=== PATIENT | female | born 1985 | race Caucasian/White ===

== ENCOUNTER 2023-04-29 06:47 | Outpatient (OUT) | payer MEDICAID, SELFPAY ==
[2023-04-29 07:54] LABS: Estimated Average Glucose 169 mg/dL; Glycohemoglobin A1C 7.5 % (4.5-6.2)
[2023-04-29 08:06] LABS: Alanine Aminotransferase 26 U/L (14-59); Albumin Globulin Ratio 0.9; Albumin Level 3.6 g/dL (3.4-5.0); Alkaline Phosphatase 91 U/L (46-116); Anion Gap 13.5; Aspartate Amino Transferase 10 U/L (15-37); BUN Creatinine Ratio 10.1; Bilirubin Total 0.3 mg/dL (0.2-1.0); Carbon Dioxide 26.5 mmol/L (21.0-32.0); Chloride 101 mmol/L (98-107); Chol HDL Ratio 4.4; Cholesterol 155 mg/dL (<=200); Estimated GFR (African America >60 (>=60); Estimated GFR (Non-African Ame >60 (>=60); Free T3 2.67 pg/mL (2.18-3.98); Glucose 196 mg/dL (74-106); HDL Cholesterol 35 mg/dL (40-60); Sodium 137 mmol/L (136-145); Thyroid Stimulating Hormone 3.556 uIU/mL (0.358-3.740); Total Protein 7.6 g/dL (6.4-8.2); Triglycerides 97 mg/dL (<=150); VLDL CHOLESTEROL 19.4 mg/dL
[2023-04-29 08:11] LABS: Basophils Percent Auto 0.3 % (0.2-2.0); Eosinophils Absolute Auto 0.1 10^3/uL (0.0-0.7); Eosinophils Percent Auto 1.9 % (0.9-7.0); Hematocrit 42.6 % (36.0-48.0); Hemoglobin 14.5 g/dL (12.0-16.0); Immature Granulocytes Abs Auto 0.03 10^3/uL (0.00-0.03); Immature Granulocytes Pct Auto 0.4 % (0.0-0.5); Lymphocytes Absolute Auto 2.2 10^3/uL (1.2-3.8); Lymphocytes Percent Auto 31.9 % (20.5-60.0); Mean Corpuscular Hemoglobin 28.7 pg (26.7-34.0); Mean Corpuscular Volume 84.4 fL (81.0-99.0); Mean Platelet Volume 9.7 fL (9.5-13.5); Monocytes Absolute Auto 0.4 10^3/uL (0.3-0.8); Monocytes Percent Auto 5.9 % (1.7-12.0); Neutrophils Absolute Auto 4.1 10^3/uL (1.4-6.5); Neutrophils Percent Auto 59.6 % (43.0-75.0); Platelet Count 244 10^3/uL (150-450); Red Blood Count 5.05 10^6/uL (4.20-5.40); Red Cell Distribution Width 12.8 % (11.0-15.0); White Blood Count 6.9 10^3/uL (4.0-11.0)
[2023-04-30 13:09] LABS: Insulin 24.5 uIU/mL (2.6-24.9)
== END 2023-04-29 06:48 | disposition home or self-care (01) ==
LOC: LAB 06:51
PROVIDERS: PCP Family Medicine; Visit Provider Family Medicine
DX: E11.9 Type 2 diabetes mellitus without complications (principal); D64.9 Anemia, unspecified
CPT/HCPCS: 36415; 80053; 80061; 83036; 83525; 83540; 84436; 84443; 84481; 85025

== ENCOUNTER 2023-06-11 11:25 | Outpatient (OUT) | payer MEDICAID, SELFPAY ==
--- NOTE | 2023-06-11 11:32 | XR_ITS ---
The [address] [address] Patient Name: JOANN JUNE MRN: [id number] date: 1985 Sex: F Assigned Patient Location: [facility] Current Patient Location: Accession/Order Number: [id number] Exam Date: 06/11/2023 11:35 Report Date: 06/12/2023 00:19 At the request of: DURGA MULLER Procedure: XR hip LT 2V w/ pelvis EXAM: XR hip LT 2V w/ pelvis HISTORY: Acute Left Left Hip Pain M25.552 COMPARISON: None. TECHNIQUE: 3 view study FINDINGS: Overall bony architecture is normal. Both hip joint spaces are satisfactorily maintained. There is mild narrowing at the symphysis pubis with early osteophytosis. Sacroiliac joints are satisfactorily maintained. XR/XR hip LT 2V w/ pelvis IMPRESSION: Early osteitis pubis. No acute bone or joint abnormality is otherwise identified. Electronically authenticated by: Deirdre SAMPSON Date: 06/12/2023 00:19
== END 2023-06-11 11:26 | disposition home or self-care (01) ==
LOC: RAD 11:26
PROVIDERS: PCP Family Medicine; Visit Provider Family Medicine
DX: M25.552 Pain in left hip (principal)
CPT/HCPCS: 73502

== ENCOUNTER 2023-06-17 14:48 | Outpatient (RCR) | payer MEDICAID, SELFPAY | END 2023-06-18 16:42 | disposition home or self-care (01) | LOC: PT 14:48 | PROVIDERS: PCP Family Medicine; Visit Provider Family Medicine | DX: M86.9 Osteomyelitis, unspecified (principal) | CPT/HCPCS: 97162 ==

== ENCOUNTER 2023-07-14 08:18 | Day surgery (SDC) | payer MEDICAID, SELFPAY ==
--- NOTE | 2023-07-14 08:29 | FL_ITS ---
The [address] [address] Patient Name: JOANN JUNE MRN: [id number] date: 1985 Sex: F Assigned Patient Location: MRI Current Patient Location: MRI Accession/Order Number: [id number] Exam Date: 07/14/2023 08:40 Report Date: 07/14/2023 10:19 At the request of: DURGA MULLER Procedure: FL hip inj LT EXAMINATION: FL hip inj LT HISTORY: Left Hip Pin Acute M25.552 COMPARISON: No relevant comparison available. FLUOROSCOPY TIME: Fluoro time measures 1 min and 2 images were obtained. TECHNIQUE: A joint injection was performed in the usual sterile manner after obtaining informed consent. Standard level fluoroscopic mode of operation utilized. FINDINGS: JOINT: left hip. NEEDLE: 22 gauge, 3.5 spinal needle. MEDICATION: 6 cc buffered 1% lidocaine for subcutaneous anesthesia 2cc Omnipaque-300 iodinated contrast to visualize the joint space 0.5% Bupivacaine 2 mL and 1 ml dotarem was injected into the joint space. TECHNIQUE: Anterior approach with prior localization of the femoral artery. A single stick was successful in gaining access to the joint space. COMPLICATIONS: None. OTHER: Negative. FL/FL hip inj LT IMPRESSION: Technically successful left hip arthrogram Electronically authenticated by: ELVIN DUBOIS Date: 07/14/2023 10:19
--- NOTE | 2023-07-14 08:30 | MR_ITS ---
[address] [address] Patient Name: JOANN JUNE MRN: [id number] date: 1985 Sex: F Assigned Patient Location: MRI Current Patient Location: MRI Accession/Order Number: [id number] Exam Date: 07/14/2023 10:00 Report Date: 07/14/2023 22:32 At the request of: DURGA MULLER Procedure: MR arthrogram hip EXAM: MR arthrogram hip HISTORY: Left hip pain COMPARISON: Hip x-rays 06/11/2023 TECHNIQUE: Coronal large ijlxq-[id number] fluid sensitive sequences through both hips and the pelvis. Small [id number] coronal, sagittal and axial MR imaging through the left hip FINDINGS: No fracture, dislocation, subluxation or osseous lesion. The pubic symphysis and sacroiliac joints are normal. No visualized deep pelvic abnormality. No joint effusion. Contrast fills the left hip joint. The left glenoid labrum exhibits normal morphology. The articular cartilage of the left femoral head and acetabulum exhibit no chondral or osteochondral defect. The right femoral head and acetabulum articular surfaces and the right acetabular labrum are unremarkable. Questionable mild thickening and interstitial edema of the insertional fibers of the left gluteus minimus tendon to the greater trochanter. Limited evaluation due to the sequences performed in arthrographic imaging. No full-thickness tear or retraction. No abnormal bursal fluid collection. The remainder of the visualized tendons exhibit no gross additional abnormality. No muscle edema, hematoma, atrophy or fatty infiltration. The superficial subcutaneous soft tissues are free of edema, hematoma, mass or cyst. MR/MR arthrogram hip IMPRESSION: 1. Questionable mild left gluteus minimus insertional tendinopathy. 2. No labrum or cartilage irregularity. Electronically authenticated by: ELVIN QUINTANILLA Date: 07/14/2023 22:32
[2023-07-14] MEDS: LIDOCAINE HCL 15 ML, SODIUM BICARBONATE 2 MEQ INJ (09:40)
== END 2023-07-14 09:55 | disposition home or self-care (01) ==
LOC: MRI 08:18
PROVIDERS: Radiology Diagnostic Radiology; PCP Family Medicine; Visit Provider Family Medicine
DX: M25.552 Pain in left hip (principal)
CPT/HCPCS: 20610; 27093; 73722; 77002; A9575

== ENCOUNTER 2023-07-22 20:21 | Outpatient (REF) | payer MEDICAID, SELFPAY ==
[2023-07-28 09:07] LABS: Age Gdln ACOG Testing Note (.); HPV Aptima Negative (Negative); IGP, Aptima HPV, rfx 16/18,45 Note (.)
== END 2023-07-22 20:22 | disposition home or self-care (01) ==
LOC: LAB 20:21
PROVIDERS: Visit Provider Obstetrics & Gynecology
DX: Z01.419 Encounter for gynecological examination (general) (routine) without abnormal findings (principal)
CPT/HCPCS: 87624; G0145

== ENCOUNTER 2023-11-16 00:19 | Emergency (ER) | payer BC, MEDICAID, SELFPAY ==
--- OUTSIDE RECORDS SUMMARY | 2023-11-16 00:27 | XMS_ITS | CCD ---
Author Name Unknown Address [address] [place] [address] Organization [facility] Care Team Providers Care Patch Sander Name Role Phone DURGA WATTERS Primary Care Unavailable DURGA WATTERS Referring Unavailable MACARIO, ABDULAZIM Surgeon Unavailable MACARIO, ABDULAZIM Attending Unavailable MACARIO, ABDULAZIM Admitting Unavailable GA Procedure Practitioner Unavailab le DURGA WATTERS Primary Care Unavailable DURGA WATTERS Referring Unavailable MACARIO, ABDULAZIM Admitting Unavailable MACARIO, ABDULAZIM Attending Unavailable GENI ., DR SULLIVAN Attending Unavailable GENI ., DR SULLIVAN Admitting Unavailable HOY ., DR CALIXTO Primary Care Unavailable PENA ., DR PRICE Consulting Unavailable GENI ., DR SULLIVAN Consulting Unavailable AGUBOSIM KEVAN Consulting Unavailable DORKOSKIECHIQUIS Consulting Unavailable JUAQUIN VERGARA Consulting Unavailable HOY ., DR CALIXTO Admitting Unavailable HOY ., DR CALIXTO Attending Unavailable HOY ., DR CALIXTO Consulting Unavailable HOY ., DR CALIXTO Primary Care Unavailable ZIEBER, DR GIANNI Sanders Consulting Unavailable HOY ., DR CALIXTO Admitting Unavailable HOY ., DR CALIXTO Attending Unavailable HOY ., DR CALIXTO Consulting Unavailable HOY ., DR CALIXTO Primary Care Unavailable ZIEBER, DR GIANNI Sanders Consulting Unavailable MACARIO, KEYA Attending Unavailable MACARIO, KEYA Referring Unavailable MACARIO, KEYA Admitting Unavailable MACARIO, KEYA Attending Unavailable MACARIO, KEYA Attending Unavailable MACARIO, KEYA Attending Unavailable MD Durga Watters Primary Care Provider Laurie Arechiga Attending Provider [phone] Durga Watters Primary Care Unavailable Geni, Laurie Attending Unavailable Laurie Arechiga Admitting Unavailable Allergies Allergy Classification Reported Allergen(s) Allergy Type Date of Onset Reaction(s) Facility (2 sources) Amoxicillin Drug Allergy 01-09-20 18 Blister [facility] Repository (4 sources) Clindamycin; Translations: [CLINDAMYCIN] Drug Allergy 11-18-19 17 Blister [facility] Repository (4 sources) Codeine; Translations: [CODEINE] Drug Allergy 09-29-19 17 Blister [facility] Repository (4 sources) Doxycycline; Translations: [DOXYCYCLINE] Drug Allergy 11-18-19 17 Blister [facility] Repository (2 sources) Meperidine Drug Allergy 09-29-19 17 [facility] Repository (1 source) Sulfamethoxazole / Trimethoprim Drug Allergy 06-26-20 21 [facility] Repository (3 sources) Sulfonamides (Antibiotic); Translations: [SULFA (SULFONAMIDE ANTIBIOTICS)] Drug allergy (disorder) 09-29-19 17 [facility] Repository (1 source) Acetaminophen / HYDROcodone Drug Allergy 09-29-19 17 The [facility] Repository (1 source) Amoxicillin Drug Allergy 09-29-19 17 [facility] Repository (1 source) Desonide Drug Allergy 09-29-19 17 [facility] Repository (1 source) Acetaminophen / HYDROcodone; Translations: [HYDROCODONE-ACETAM INOPHEN] Drug Allergy 01-02-20 17 [facility] Repository (3 sources) Meperidine; Translations: [MEPERIDINE] Drug Allergy 01-02-20 17 Diarrhea [facility] Repository (1 source) Penicillins; Translations: [PENICILLINS] Propensity to adverse reactions to drug (disorder) 01-02-20 17 [facility] Repository (1 source) Sulfamethoxazole / Trimethoprim; Translations: [SULFAMETHOXAZOLE-T RIMETHOPRIM] Drug Allergy 04-10-20 23 [facility] Repository (2 sources) Acetaminophen; Translations: [acetaminophen] Drug Allergy 01-08-20 18 Unknown Reaction [facility] (2 sources) Adhesive agent; Translations: [adhesive] Allergy to substance 01-09-20 Rash [facility] (2 sources) HYDROcodone; Translations: [hydrocodone] Drug Allergy 01-09-20 Diarrhea [facility] (2 sources) sulfADIAZINE; Translations: [sulfadiazine] Drug Allergy 01-09-20 Blister [facility] (1 source) Amoxicillin Drug Allergy 01-09-20 [facility] Repository (1 source) Clindamycin Drug Allergy 01-09-20 [facility] Repository (1 source) Codeine Drug Allergy 01-09-20 [facility] Repository (1 source) Doxycycline Drug Allergy 01-09-20 [facility] Repository Problems Active Problems Problem Classification Problem Date Documented Da te Episodic/Chronic Menstrual disorders (1 source) Dysmenorrhea, unspecified; Translations: [DYSMENORRHEA UNSPECIFIED] Onset: 02-14-2022 Chronic Other connective tissue disease (2 sources) Other enthesopathies, not elsewhere classified; Translations: [Other enthesopathies, not elsewhere classified] Onset: 04-11-2023 Episodic Other non-traumatic joint disorders (4 sources) Pain in left hip; Translations: [PAIN IN LEFT HIP] Onset: 2022 Episodic Substance-related disorders (1 source) Nicotine dependence, cigarettes, uncomplicated; Translations: [NICOTINE DEPEND CIGARETTES UNCOMP] Onset: 02-14-2022 Chronic Unclassified (2 sources) Post-op; Translations: [Post-op] Onset: 05-02-2023 Unclassified (1 source) Unspecified lump in unspecified breast; Translations: [Unspecified lump in unspecified breast] Onset: 09-04-2023 Past or Other Problems Problem Classification Problem Date Documented Da te Episodic/Chronic Abdominal pain (4 sources) Pelvic and perineal pain; Translations: [PELVIC AND PERINEAL PAIN] Onset: 01-28-2022 Episodic Cancer of breast (1 source) Personal history of malignant neoplasm of breast; Translations: [PERS HX MALIGNANT NEOPLASM BREAST] Onset: 02-14-2022 Episodic Other gastrointestinal disorders (1 source) Peritoneal adhesions (postprocedural) (postinfection); Translations: [PERITONEAL ADHES POSTPROC POSTINF] Onset: 02-14-2022 Episodic Other nervous system disorders (2 sources) Other acute postprocedural pain; Translations: [Other acute postprocedural pain] Onset: 04-21-2023 Episodic Other non-traumatic joint disorders (4 sources) Pain in right ankle and joints of right foot; Translations: [PAIN IN RIGHT ANKLE] Onset: 06-10-2022 Episodic Other non-traumatic joint disorders (2 sources) Pain in left wrist; Translations: [Pain in left wrist] Onset: 04-10-2023 Episodic Ovarian cyst (2 sources) Follicular cyst of left ovary; Translations: [Corpus luteum cyst of left ovary] Onset: 02-14-2022 Episodic Residual codes; unclassified (1 source) Laparoscopic surgical procedure converted to open procedure; Translations: [LAP SURG PROC CONVERT TO OPEN PROC] Onset: 02-14-2022 Episodic Residual codes; unclassified (1 source) Acquired absence of both cervix and uterus; Translations: [ACQUIRED ABSENCE BOTH CERVIX AND UTERUS] Onset: 02-14-2022 Episodic Residual codes; unclassified (1 source) Acquired absence of left breast and nipple; Translations: [ACQUIRED ABSENCE LT BREAST AND NIPPLE] Onset: 02-14-2022 Episodic Residual codes; unclassified (1 source) Acquired absence of other specified parts of digestive tract; Translations: [ACQ ABSENCE OTH PART DIGESTV TRACT] Onset: 02-14-2022 Episodic Superficial injury; contusion (2 sources) Contusion of left wrist, initial encounter; Translations: [Contusion of left wrist, initial encounter] Onset: 04-11-2023 Episodic Results Test Name Value Interpretation Reference Range Facility MR breast BI wo/w con CADon 09-05-2023 MR breast BI wo/w con CAD [place] [address] MRI Report Signed Patient: YasmaniDecember MR#: [id number] : 1985 Acct:[id number] Age/Sex: 37 / F ADM Date: 09/04/23 Loc: MR Room: Type: [facility] Attending Dr: Laurie Arechiga Copies to: Laurie Arechiga DO Ordering Provider: Laurie Arechiga DO Date of Service: 09/04/23 MR/MR breast BI wo/w con CAD: BREAST PAIN/BREAST LUMP BILATERAL BREAST MRI WITHOUT AND WITH INTRAVENOUS CONTRAST CLINICAL HISTORY: History of left-sided breast cancer in 2018 status post mastectomy with silicone implant placement. Occasional pain right nipple area. COMPARISON: Right breast diagnostic mammogram and ultrasound performed at outside institution 09/17/2019 TECHNIQUE: Multisequence, multiplanar imaging of the breasts were obtained before and after the use of IV contrast. All imaged data was reviewed using the MOVE Guides system. The postcontrast images were subtracted and CAD mapping of the enhancement kinetics was performed. Kinetic curves were generated. 2D and 3D MIP images were also reviewed. FINDINGS: The right breast is composed of heterogeneously dense fibroglandular tissue with minimal background parenchymal enhancement. Right breast: No suspicious masslike or nonmass-like enhancement within the right breast. No chest wall abnormality is seen. No suspicious intramammary or axillary lymph nodes. Left breast: Infiltrate reconstruction changes are noted. Please note that cancer detection protocol is utilized which severely limits evaluation of implant integrity. No suspicious masslike or nonmass-like enhancement within the reconstructed left breast. No chest wall abnormality. No suspicious intramammary or axillary lymph nodes. MR/MR breast BI wo/w con CAD IMPRESSION: NO MRI EVIDENCE OF MALIGNANCY. THE PATIENT'S BREAST PAIN SHOULD BE HANDLED ON A CLINICAL BASIS. ROUTINE FOLLOW-UP IS RECOMMENDED IN ONE YEAR. RESULT CODE: 1 Negative FOLLOW UP: 1YR Impression dictated by: Andrew Ziegler Jr., D.ORoney09/05/2023 12:15 PM Dictation Location: [place] [address] Transcribed By: [facility] 09/05/23 1215 Dictated By: Andrew Ziegler Jr, DO 09/05/23 1209 Signed By: 09/05/23 1215 [facility] Telephoneon 07-14-2023 Telephone [id number] [facility],1985 F Date Provider Department [place] 07/14/2023 Theodora-PATRICA ROOT MP ORTHO MPORTHO No family history on file [facility] Follow-Upon 06-18-2023 Follow-Up [id number] [facility],1985 F Date Provider Department [place] 06/18/2023 373-CORY CHANDRA ORTHO MPORTHO No family history on file Level of Service:91443 [place] POSTOP FOLLOW UP VISIT RELATED TO ORIGINAL PX Reason for Visit and Comments: Post-op [483] Follow-up [058195] [facility] Office Visiton 05-02-2023 Follow-up visit [id number] Yasmani,1985 F Date Provider Department Center 05/02/2023 373-KEYA CHANDRA MP ORTHO MPORTHO No family history on file Level of Service:50544 [place] POSTOP FOLLOW UP VISIT RELATED TO ORIGINAL PX Reason for Visit and Comments: Post-op [483] Normal [facility] HISTOLOGY - TISSUE EXAMon LAB AP CASE REPORT Normal [facility] Comment on above: Order Comment: Pre-o p diagnosis:Left wrist tendonitis [M77.8]Contusion of left wrist, initial encounter [S60.212A] Result Comment: Surg ical Pathology Case: [id number] Authorizing Provider: Keya Chandra MD Collected: 04/21/2023 1015 Ordering Location: [facility] Received: 04/21/2023 1[facility] [place] Pathologist: Shelli Miranda MD Specimen: Wrist, TENOSYNOVIUM OF LEFT EXTENSOR TENDON Performed By: #### L [id number] ####[facility] ([employer])[address] [place] [address] LAB AP CLINICAL INFORMATION [facility] Comment on above: Order Comment: Pre-o p diagnosis:Left wrist tendonitis [M77.8]Contusion of left wrist, initial encounter [S60.212A] Result Comment: Post -Op Diagnoses M77.8 - Left wrist tendonitis [ICD-10-CM] S60.212A - Contusion of left wrist, initial encounter [ICD-10-CM] Performed By: #### L [id number] ####[facility] [employer] [facility] [place] [address] LAB AP GROSS DESCRIPTION A. Wrist. [facility] Comment on above: Order Comment: Pre-o p diagnosis:Left wrist tendonitis [M77.8]Contusion of left wrist, initial encounter [S60.212A] Result Comment: Rece ived in formalin in a container labeled Decemberghtman, TENOSYNOVIUM OF LEFT EXTENSOR TENDON . The specimen consists of one soft white-tobin tissue measuring 1.0 x 0.3 x 0.2 cm. The entire specimen is submitted in 1 cassette. Lebron Cabezas, PGY1 Performed By: #### L [id number] ####[facility] ([employer])[address] [facility] [place] [address] LAB AP MICROSCOPIC DESCRIPTION Microscopic examination performed. [facility] Comment on above: Order Comment: Pre-o p diagnosis:Left wrist tendonitis [M77.8]Contusion of left wrist, initial encounter [S6] Performed By: #### L [id number] ####[facility] ([facility])[address] [place] [place] [address] LAB AP REPORT FINAL DIAGNOSIS NARRATIVE [facility] Comment on above: Order Comment: Pre-o p diagnosis:Left wrist tendonitis [M77.8]Contusion of left wrist, initial encounter [] Result Comment: A. T enosynovium, extensor tendon of left wrist, excision: - Benign synovial tissue, consistent with procedure. - No malignancy identified. Performed By: #### L [id number] ####[facility] ([facility])[address] [place] [place] [address] HPon 04-21-2023 HP H&P reviewed. The patient was examined and there are no changes to the H&P. [facility] OPNOTEon 04-21-2023 OPNOTE wrist Ecu tendon debridement (L) Operative Note Date: 04/21/2023 Location: [facility] OR Name: Bailey Gruber, : 1985, Diagnosis Pre-op Diagnosis * Left wrist tendonitis [M77.8] * Contusion of left wrist, initial encounter [S60.A] Post-op Diagnosis * Left wrist tendonitis [M77.8] * Contusion of left wrist, initial encounter [S6.A] Procedures wrist Ecu tendon debridement [id number] - GA DEBRIDEMENT BONE MUSCLE &/FASCIA 20 SQ CM/< Excision cyst tendon sheath left wrist Surgeons * Keya Chandra - Primary Procedure Summary Anesthesia: Monitor Anesthesia Care ASA: III Estimated Blood Loss: 10 mL Specimens ID Source Type Tests Collected By Collected At Frozen? Priority Lab ID A Wrist Tissue HISTOLOGY - TISSUE EXAM Keya Chandra MD 04/21/23 1015 No Routine [id number] Description: TENOSYNOVIUM OF LEFT EXTENSOR TENDON Staff: Trade Facilitator: Malu Pham RN Scrub Person: Radha Doshi CST Indications: December Yasmani is an 37 y.o. female who is having surgery for Left wrist tendonitis [M77.8] Contusion of left wrist, initial encounter [P70.720O]. Procedure Details: The patient was seen in the preoperative area. The risks, benefits, complications, treatment options, non-operative alternatives, expected recovery and outcomes were discussed with the patient. The possibilities of reaction to medication, pulmonary aspiration, injury to surrounding structures, bleeding, recurrent infection, the need for additional procedures, failure to diagnose a condition, and creating a complication requiring transfusion or operation were discussed with the patient. The patient concurred with the proposed plan, giving informed consent. The site of surgery was properly noted/marked if necessary per policy. The patient has been actively warmed in preoperative area. Preoperative antibiotics have been ordered and given within 1 hours of incision. Venous thrombosis prophylaxis are not indicated. Findings: At the site correlating with the maximum focal tenderness identified was a cystic mass emanating from the tendon sheath. Deep within the tendon sheath there was noted to be hypertrophied synovium. Tendon was intact with no fraying. Under regional anesthetic, patient's left upper extremity was prepped and draped for the proposed procedure. Tourniquet applied to the left proximal humerus was inflated to 250 mmHg following exsanguination of the limb by application of an Esmarch bandage. A longitudinal incision was made overlying the sixth extensor compartment. On initial dissection noted was that there is a cystic mass emanating from the extensor retinaculum. This was dissected free from surrounding tissues and delivered off the field. It was consistent with a cyst and thus not sent for pathological exam. The tendon sheath was then incised preserving the retinaculum distally. Noted was the presence of hypertrophied synovium which was resected. This was sent for pathological exam. Wound then irrigated with normal saline solution. Wound closed repairing the retinaculum with 3-0 Vicryl followed with closure of the subcutaneous tissue with 0 Vicryl closure of skin with a 4-0 Novafil established in a mattress fashion. Sterile bulky hand dressing was applied. Complications: None; patient tolerated the procedure well. Disposition: PACU - hemodynamically stable. Condition: stable Keya Chandra [facility] POCT GLUCOSE METER UNSOLICIT ED RESULTSon 04-21-2023 Glucose [Mass/Vol] 172 mg/dL High 70-105 [facility] Comment on above: Order Comment: Waive d Testing in the ED is performed under the ED CLIA certificate #[id number]. Result Comment: jhag eman Performed By: #### L [id number] ####[facility] ([facility]AKER)[address] [place] [address] Follow-Upon 04-10-2023 Follow-Up [id number] Yasmani,1985 F Date Provider Department Center 04/10/2023 CORY FUNES ORTHO MPORTHO No family history on file Level of Service:49749 [place] OFFICE/OUTPATIENT ESTABLISHED LOW MDM 20-29 MIN Reason for Visit and Comments: Pain [136] Follow-up [822516] [facility] 04-10-2023 - Attestation signed by Keya Chandra MD at 04/13/2023 8:53 AM As the teaching physician, I have personally performed or re-performed the history of present illness, physical exam and medical decision making activities of the encounter and verified the medical student's documentation. I made pertinent changes as necessary to ensure accurate documentation. Orthopedic Surgery Subjective Pain and Follow-up of the Left Wrist 04/10/23 Bailey Gruber is a 37 y.o. female presenting for evaluation of left wrist pain. Patient has a history of Kienbocks disease and was treated with core decompression in 05/2021 and subsequent radial shortening osteotomy & lunate core decompression in 12/2021. Patient left wrist pain continued post-operatively and she received CSI for deQuervain's tenosynovitis on 02/2022 and CSI in ECU tendon sheath in 05/2022. Patient states her pain is located on the ulnar side of the wrist. She states she has flares of pain and swelling in which her finger begin to swell. She wears a brace intermittently and uses ibuprofen without relief. Review of Systems positive for: Left wrist pain Patient History Past Surgical History: Procedure Laterality Date WRIST OSTEOTOMY Left 01/07/2022 radial shortening, lunate core decompression Past Medical History: Diagnosis Date Kienbock's disease Objective General: Body mass index is 29.86 kg/m???. No acute distress, comfortable Respiratory: Unlabored breathing with normal rate, no cough Cardiovascular: Warm well perfused extremities Psych: Appropriate mood behavior MSK: Evaluation of left wrist reveals no gross deformity, swelling, or erythema. Palpation along ECU tendon produces mild pain. Left wrist flexion was measured at 40 degrees, and extension at 50 degrees. Positive ECU synergy test. Imaging personally reviewed: - Left wrist 3 view x-ray showed signs of cystic changes and sclerosis from previous x-rays. No signs of new collapse. Assessment/Plan Bailey Gruber is a 37 y.o. female with Kienbocks disease 15 months s/p left radial shortening osteotomy and lunate core decompression, 1 year s/p CSI for DeQuervain's tenosynovitis which has resolved, and 8 months s/p CSI of ECU tendon sheath. 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 - Discussed with patient the radiographic cystic changes from previous x-rays. - given patients presentation, discussed that pain is thought to be due to ECU tendinitis and not from cystic changes of lunate. - Patient agreeable to have left wrist ECU tendon debridement given that CSI of ECU tendon sheath provided no relief. - surgery likely to be scheduled either next week or the following week. - patient instructed to continue conservative treatment for pain until surgery. Nish Hayes 04/10/23 4:20 PM [facility] WRIST LEFT 3 VWSon 2 WRIST LEFT 3 S [facility] Department of Radiology [address] [place] [phone] Patient Name: YASMANIDecember : 1985 Sex: F Age: Race: White Pt. Location: Patient Status: Ordered Date: 06/07/2022 8:45:00 AM Completed Date: 06/07/2022 11:14 AM Requesting Provider: YAZAN CHANDRA Attending Provider: Report Copy To: Signs & Symptoms: M25.532 Pain in left wrist I10 History: Joyce Comments: Evaluate Exam: WRIST LEFT 3 [facility] WRIST LEFT 3 S 06/07/2022 11:14 AM CLINICAL INDICATIONS: M25.532 Pain in left wrist I10 TECHNOLOGIST COMMENTS: Patient states last surgery to left wrist x 12/2021 complaint of pain QUESTION FOR THE RADIOLOGIST: Evaluate PROTOCOL: AP,Lateral and Oblique views were obtained. COMPARISON: XR left wrist 03/28/2022 FINDINGS: Stable appearance of left distal radial ORIF with no evidence of hardware associated complication. Progressive healing at distal radial osteotomy site. Positive ulnar variance. 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 IMPRESSION: Stable appearance of left distal radial ORIF with no evidence of hardware associated complication. Approved by:Cindi Kaminski06/07/2022 11:44 AM. I, Danny Quintero,have reviewed the image(s) and agree with the findings in this report. Electronically signed: Danyn Quintero. Transcribed by: [email or web address], User Resident: CINDI STEPHENSON Electronically Signed by: DANNY QUINTERO @ 06/07/2022 01:11 PM I personally read this/these film(s) with this resident Normal [facility] Comment on above: Order Comment: Evalu ate WRIST LEFT 3 [facility] [address] [facility] Department of Radiology [address] [place] [phone] Patient Name: December : 1985 Sex: F Age: Race: White Pt. Location: Patient Status: D Ordered Date: 03/28/2022 1:10:00 PM Completed Date: 03/28/2022 01:17 PM Requesting Provider: YAZAN CHANDRA Attending Provider: Report Copy To: Signs & Symptoms: M25.532 Pain in left wrist I10 History: Comments: evaluate Exam: WRIST LEFT 3 [facility] WRIST LEFT 3 S 03/28/2022 1:17 PM CLINICAL INDICATIONS: M25.532 Pain in left wrist I10 TECHNOLOGIST COMMENTS: left wrist pain surgery - f/u QUESTION FOR THE RADIOLOGIST: evaluate PROTOCOL: AP,Lateral and Oblique views were obtained. COMPARISON: February 14, 2022 FINDINGS: Disuse osteopenia. Complaint across the distal radial fracture with appropriate alignment. Osseous bridging not yet complete. Insertion of the residual positive ulnar variance. 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 IMPRESSION: As above. Electronically signed: Surinder Ocasio. Transcribed by: [email or web address], User Resident: Electronically Signed by: SURINDER OCASIO @ 03/29/2022 02:02 PM Normal [facility] Comment on above: Order Comment: evalu ate WRIST LEFT 3 [facility] [address] [facility] Department of Radiology [address] [place] [phone] Patient Name: YASMANIDecember : 1985 Sex: F Age: Race: White Pt. Location: Patient Status: D Ordered Date: 02/14/2022 10:05:00 AM Completed Date: 02/14/2022 10:09 AM Requesting Provider: YAZAN CHANDRA Attending Provider: YAZAN CHANDRA Report Copy To: Signs & Symptoms: M25.532 Pain in left wrist I10 History: Joyce Comments: Evaluate Exam: WRIST LEFT 3 [facility] WRIST LEFT 3 [facility] 02/14/2022 10:09 AM CLINICAL INDICATIONS: M25.532 Pain in left wrist I10 TECHNOLOGIST COMMENTS: Left wrist post op follow up. QUESTION FOR THE RADIOLOGIST: Evaluate PROTOCOL: AP,Lateral and Oblique views were obtained. COMPARISON: 01/07/2022 IMPRESSION: 1. Previously described distal radial metaphyseal fracture held in internal fixation with plate and screws. No acute hardware complication. No significant change in alignment. Fracture lucency persistently visible. 2. 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 3. Slight positive ulnar variance. Electronically signed: BEATA PIRES. Transcribed by: [email or web address], User Resident: Electronically Signed by: BEATA PIRES @ 02/15/2022 01:21 PM Normal [facility] Comment on above: Order Comment: Evalu ate Insurance Correspondence Off iceon 02-04-2022 Insurance Correspondence Office [id number] .[id number]:127 Normal [facility] Operative Reporton 2 Operative Report [id number] .[id number]:127 Normal [facility] BUNon 01-29-2022 Urea nitrogen [Mass/Vol] 8.0 mg/dL Normal 7.0-18.0 [facility] Comment on above: Performed By: #### B RASHARD CREDanna #### [facility] [address] [address] [address] Kimberly Saucedo CBC AUTO DIFFon 01-29-2022 BASO # 0.0 103/ul Normal 0.0-0.1 [facility] Comment on above: Performed By: #### C BC #### [facility] [address] [address] [address] Kimberly Saucedo Basophils/100 WBC (Bld) 0.2 % Normal 0.2-2.0 [facility] Comment on above: Performed By: #### C BC #### [facility] [address] [place] [address] Dr. Kimberly Saucedo EO # 0.0 103/ul Normal 0.0-0.7 [facility] Comment on above: Performed By: #### C BC #### [facility] [address] [place] [address] Dr. Kimberly Saucedo Eosinophils/100 WBC (Bld) 0.2 % Critically low 0.9-7.0 [facility] Comment on above: Performed By: #### C BC #### [facility] [address] [place] [address] Dr. Kimberly Saucedo Erythrocyte distribution width (RBC) [Ratio] 12.8 % Normal 11.0-15.0 [facility] Comment on above: Performed By: #### C BC #### [facility] [address] [place] [address] Dr. Kimberly Saucedo Hematocrit (Bld) [Volume fraction] 36.5 % Normal 36.0-48.0 [facility] Comment on above: Performed By: #### C BC #### [facility] [address] [place] [address] Dr. Kimberly Saucedo Hemoglobin (Bld) [Mass/Vol] 12.1 g/dL Normal 12.0-16.0 [facility] Comment on above: Performed By: #### C BC #### [facility] [address] [place] [address] Dr. Kimberly Saucedo IG # 0.06 10e3/ul Critically high 0.00-0.03 [facility] Comment on above: Performed By: #### C BC #### [facility] [address] [place] [address] Dr. Kimberly Saucedo IG % 0.5 % Normal 0.0-0.5 [facility] Comment on above: Performed By: #### C BC #### [facility] [address] [place] [address] Dr. Kimberly Saucedo LYMPH # 1.8 103/ul Normal 1.2-3.8 [facility] Comment on above: Performed By: #### C BC #### [facility] [address] [place] [address] Dr. Kimberly Saucedo Lymphocytes/100 WBC (Bld) 14.3 % Critically low 20.5-60.0 [facility] Comment on above: Performed By: #### C BC #### [facility] [address] [place] [address] Dr. Kimberly Saucedo MANUAL DIFF REQ NO Normal [facility] Comment on above: Performed By: #### C BC #### [facility] [address] [place] [address] Dr. Kimberly Saucedo MCH (RBC) [Entitic mass] 30.1 pg Normal 26.7-34.0 [facility] Comment on above: Performed By: #### C BC #### [facility] [address] [place] [address] Dr. Kimberly Saucedo MCHC (RBC) [Mass/Vol] 33.2 g/dL Normal 29.9-35.2 [facility] Comment on above: Performed By: #### C BC #### [facility] [address] [place] [address] Dr. Kimberly Saucedo MCV (RBC) [Entitic vol] 90.8 fL Normal 81.0-99.0 [facility] Comment on above: Performed By: #### C BC #### [facility] [address] [place] [address] Dr. Kimberly Saucedo MONO # 0.8 103/ul Normal 0.3-0.8 [facility] Comment on above: Performed By: #### C BC #### [facility] [address] [place] [address] Dr. Kimberly Saucedo Monocytes/100 WBC (Bld) 6.3 % Normal 1.7-12.0 [facility] Comment on above: Performed By: #### C BC #### [facility] [address] [place] [address] Dr. Kimberly Saucedo NEUT # 9.9 103/ul Critically high 1.4-6.5 [facility] Comment on above: Performed By: #### C BC #### [facility] [address] [place] [address] Dr. Kimberly Saucedo Neutrophils/100 WBC (Bld) 78.5 % Critically high 43.0-75.0 [facility] Comment on above: Performed By: #### C BC #### [facility] [address] [place] [address] Dr. Kimberly Saucedo Platelet mean volume (Bld) [Entitic vol] 9.6 fL Normal 9.5-13.5 [facility] Comment on above: Performed By: #### C BC #### [facility] [address] [place] [address] Dr. Kimberly Saucedo PLT 236 103/ul Normal 150-450 [facility] Comment on above: Performed By: #### C BC #### [facility] [address] [place] [address] Dr. Kimberly Saucedo RBC 4.02 106/ul Critically low 4.20-5.40 [facility] Comment on above: Performed By: #### C BC #### [facility] [address] [place] [address] Dr. Kimberly Saucedo WBC 12.5 103/ul Critically high 4.0-11.0 [facility] Comment on above: Performed By: #### C BC #### [facility] [address] [place] [address] Dr. Kimberly Saucedo CREATININEon 01-29-2022 Creatinine [Mass/Vol] 0.69 mg/dL Normal 0.55-1.02 [facility] Comment on above: Performed By: #### B UN, CREA #### [facility] [address] [place] [address] Dr. Kimberly Saucedo EGFR-AF FINNISH >60 Normal >=60 [facility] Comment on above: Performed By: #### B UN, CREA #### [facility] [address] [place] [address] Dr. Kimberly Saucedo EGFR-NON AF FINNISH >60 Normal >=60 [facility] Comment on above: Performed By: #### B UN, CREA #### [facility] [address] [place] [address] Dr. Kimberly Saucedo CBC AUTO DIFFon 01-28-2022 BASO # 0.0 103/ul Normal 0.0-0.1 [facility] Comment on above: Performed By: #### C BC #### [facility] [address] [place] [address] Dr. Kimberly Saucedo Basophils/100 WBC (Bld) 0.3 % Normal 0.2-2.0 [facility] Comment on above: Performed By: #### C BC #### [facility] [address] [place] [address] Dr. Kimberly Saucedo EO # 0.2 103/ul Normal 0.0-0.7 [facility] Comment on above: Performed By: #### C BC #### [facility] [address] [place] [address] Dr. Kimberly Saucedo Eosinophils/100 WBC (Bld) 1.6 % Normal 0.9-7.0 [facility] Comment on above: Performed By: #### C BC #### [facility] [address] [place] [address] Dr. Kimberly Saucedo Erythrocyte distribution width (RBC) [Ratio] 12.9 % Normal 11.0-15.0 [facility] Comment on above: Performed By: #### C BC #### [facility] [address] [place] [address] Dr. Kimberly Saucedo Hematocrit (Bld) [Volume fraction] 44.3 % Normal 36.0-48.0 [facility] Comment on above: Performed By: #### C BC #### [facility] [address] [place] [address] Dr. Kimberly Saucedo Hemoglobin (Bld) [Mass/Vol] 14.7 g/dL Normal 12.0-16.0 [facility] Comment on above: Performed By: #### C BC #### [facility] [address] [place] [address] Dr. Kimberly Saucedo IG # 0.04 10e3/ul Critically high 0.00-0.03 [facility] Comment on above: Performed By: #### C BC #### [facility] [address] [place] [address] Dr. Kimberly Saucedo IG % 0.4 % Normal 0.0-0.5 [facility] Comment on above: Performed By: #### C BC #### [facility] [address] [place] [address] Dr. Kimberly Saucedo LYMPH # 2.6 103/ul Normal 1.2-3.8 [facility] Comment on above: Performed By: #### C BC #### [facility] [address] [place] [address] Dr. Kimberly Saucedo Lymphocytes/100 WBC (Bld) 24.5 % Normal 20.5-60.0 [facility] Comment on above: Performed By: #### C BC #### [facility] [address] [place] [address] Dr. Kimberly Saucedo MANUAL DIFF REQ NO Normal [facility] Comment on above: Performed By: #### C BC #### [facility] [address] [place] [address] Dr. Kimberly Saucedo MCH (RBC) [Entitic mass] 29.7 pg Normal 26.7-34.0 [facility] Comment on above: Performed By: #### C BC #### [facility] [address] [place] [address] Dr. Kimberly Saucedo MCHC (RBC) [Mass/Vol] 33.2 g/dL Normal 29.9-35.2 [facility] Comment on above: Performed By: #### C BC #### [facility] [address] [place] [address] Dr. Kimberly Saucedo MCV (RBC) [Entitic vol] 89.5 fL Normal 81.0-99.0 [facility] Comment on above: Performed By: #### C BC #### [facility] [address] [place] [address] Dr. Kimberly Saucedo MONO # 0.6 103/ul Normal 0.3-0.8 [facility] Comment on above: Performed By: #### C BC #### [facility] [address] [place] [address] Dr. Kimberly Saucedo Monocytes/100 WBC (Bld) 5.6 % Normal 1.7-12.0 [facility] Comment on above: Performed By: #### C BC #### [facility] [address] [address] [address] Kimberly Saucedo NEUT # 7.1 103/ul Critically high 1.4-6.5 [facility] Comment on above: Performed By: #### C BC #### [facility] [address] [address] [address] Kimberly Saucedo Neutrophils/100 WBC (Bld) 67.6 % Normal 43.0-75.0 [facility] Comment on above: Performed By: #### C BC #### [facility] [address] [address] [address] Kimberly Saucedo Platelet mean volume (Bld) [Entitic vol] 9.0 fL Critically low 9.5-13.5 [facility] Comment on above: Performed By: #### C BC #### [facility] [address] [address] [address] Kimberly Saucedo PLT 273 103/ul Normal 150-450 [facility] Comment on above: Performed By: #### C BC #### [facility] [address] [address] [address] Kimberly Saucedo RBC 4.95 106/ul Normal 4.20-5.40 [facility] Comment on above: Performed By: #### C BC #### [facility] [address] [address] [address] Kimberly Saucedo WBC 10.5 103/ul Normal 4.0-11.0 [facility] Comment on above: Performed By: #### C BC #### [facility] [address] [address] [address] Kimberly Saucedo Operative Reporton Operative Report MR#: [id number] [facility] Pt. Name: Bailey Gruber [facility] #: 0C Discharge Date: Birthdate: 1985 OPERATIVE REPORT DATE OF SURGERY: 01/07/2022 SURGEON: Steve Chandra M.D. GALLERY MANAGER: Dank Gutierres MD PREOPERATIVE DIAGNOSIS: Left wrist Kienbock disease. POSTOPERATIVE DIAGNOSIS: Left wrist Kienbock disease. PROCEDURE PERFORMED: 1. Left radial shortening osteotomy. 2. Left lunate core decompression. ANESTHESIA: Regional with MAC. FLUIDS: Per Anesthesia report. ESTIMATED BLOOD LOSS: Minimal. COMPLICATIONS: None. IMPLANTS: Synthes VA distal radius plate. INTRAOPERATIVE FINDINGS: Distal radius osteotomy shortened by approximately 2 mm with good fixation and compression across the osteotomy site. 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 She previously had a distal radius core decompression, which did not help resolve her symptoms. Therefore, she elected to proceed with radial shortening osteotomy with lunate core decompression. DESCRIPTION OF PROCEDURE: The patient was brought to the preoperative holding area, where she was marked by the surgical team, and the operative extremity was marked. Regional anesthesia was then administered by the anesthesia staff. She was then brought back to the operating room and was placed in supine position and all bony prominences were well padded. A nonsterile tourniquet was applied to the left upper arm and the arm was prepped and draped in a normal sterile fashion. A time-out was then called indicating the patient's name, laterality, procedure to be performed. Preoperative antibiotics were addressed and given. I began the procedure by first exsanguinating the left arm using an Esmarch bandage and inflamed tourniquet. We then performed a standard FCR approach to the distal radius and elevated pronator quadratus off the radius. We then selected an appropriate size Synthes VA distal radius plate and positioned it into the desired position under fluoroscopy. We then placed 2 locking screws distally as guide holes to replace the plate after our osteotomy had been made. We then also made a guide hole for a cortical screw at the proximal aspect of the oblong hole of the plate proximally. We then removed the plate and made a freehand osteotomy in a transverse nature, planning to shorten approximately 2 mm. After this osteotomy had been made, we were satisfied with its position and we then replaced the distal radius plate. We secured 4 locking screws distally in the distal segment and then used the pre-drilled proximal hole in the oblong section. Prior tightening this all the way down, we then drilled eccentrically in the next most proximal hole and placed an appropriate length screw in a fashion so as to compress across the osteotomy site. We were able to visualize good compression of the osteotomy site as this was tightened. We then tightened the other cortical screw and placed a 3rd proximal cortical screw for 4 points of fixation distally total and 3 points of fixation proximally. We confirmed that we were satisfied with our alignment that all of our screws were extra-articular on fluoroscopy. This completed this portion of the case and we then turned our attention to the lunate core decompression. We did this to a percutaneous technique using a 1-5 K-wire under fluoroscopic guidance. This was used to decompress the lunate. We then closed volarly using 3-0 Vicryl and 4-0 Novafil in a running horizontal mattress fashion. We then used Xeroform fluffs and a soft dressing and then a cock-up wrist brace placed over top of this. The tourniquet was deflated and she had good brisk capillary refill distally in all 5 fingers. This completed our procedure and the patient was transferred back in stable condition. Dr. Chandra was present for all critical portions of the procedure and immediately available for assistance at all times. Electronically Signed by: Steve Chandra M.D. 01/09/2022 06:43 P Steve Chandra M.D. I was present for the entire procedure. Date Dict: 01/07/2022/02:52 P/Dank Gutierres MD Date Trans: 01/08/2022 01:44 Danna/marc [id number] cc: Durga Watters M.D. [address] [facility] [phone] Normal [facility] POC GLUCOSE LABon 01-07-2022 Glucose [Mass/Vol] 111 mg/dL High 70-100 [facility] Comment on above: Performed By: #### [id number] #### [facility] [address] [place] [address], [facility] WRIST LEFT 2 VWSon [address] [facility] Department of Radiology [address] [place] [id number] Patient Name: YASMANIDecember : 1985 Sex: F Age: Race: White Pt. Location: OUTP Patient Status: O Ordered Date: 01/07/2022 6:45:00 AM Completed Date: 01/07/2022 02:30 PM Requesting Provider: YAZAN CHANDRA Attending Provider: YAZAN CHANDRA Report Copy To: Signs & Symptoms: Intra op c-arm, left radial shortening osteotomy and core decompression of the lunate History: Intra op c-arm, left radial shortening osteotomy and core decompression of the lunate Comments: Exam: [facility] 2 [facility] 2 [facility] CLINICAL INFORMATION: Intra op c-arm, left radial shortening osteotomy and core decompression of the lunate Dr. Chandra Fluoro Time: 16 sec. C-arm out at 2:30 pm. Intra op c-arm, left radial shortening osteotomy and core decompression of the lunate. IMPRESSION: Intraoperative fluoroscopy provided to the clinical service. 5 images. Fluoroscopy time 16 seconds. Dose 0.32 MGY. Electronically signed: Brady Chaney. Transcribed by: [email or web address], User Resident: Electronically Signed by: BRADY CHANEY @ 01/07/2022 03:17 PM Normal [facility] WRIST LEFT 3 [facility] 2 WRIST LEFT 3 VWS [facility] Department of Radiology [address] [place] [address] Patient Name: YASMANIDecember : 1985 Sex: F Age: Race: White Pt. 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 Ortho follow up. QUESTION FOR THE RADIOLOGIST: Evaluate PROTOCOL: AP,Lateral and Oblique views were obtained. COMPARISON: 08/17/2021 FINDINGS: Subchondral cystic formation involving the lunate with subchondral sclerosis. No acute fracture nor malalignment. NOF of the distal radius. No erosion or periostitis. IMPRESSION: Advancing degenerative changes of the lunate likely due to AVN. Electronically signed: Richard Granados. Transcribed by: [email or web address], User Resident: Electronically Signed by: RICHARD GRANADOS @ 11/17/2021 10:06 AM Normal [facility] Comment on above: Order Comment: Evalu ate Physician Referralon 022 Physician Referral [id number] .[id number]:127 Normal [facility] WRIST LEFT 3 VWSon WRIST LEFT 3 VWS [facility] Department of Radiology [address] [place] [phone] Patient Name: YASMANIDecember : 1985 Sex: F Age: Race: White Pt. 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 Ortho follow up. QUESTION FOR THE RADIOLOGIST: Evaluate PROTOCOL: AP,Lateral and Oblique views were obtained. COMPARISON: 06/14/2021 FINDINGS: New lucency in the distal radius most likely relates to bone grafting procedure. Unchanged sclerosis within the lunate. No fracture or malalignment. IMPRESSION: 1. Unchanged increased sclerosis in the lunate indicative of avascular necrosis. 2. New lucency in the distal radius most likely relates to bone grafting procedure though correlation with operative history advised. Electronically signed: Nilsa Bai. Transcribed by: [email or web address], User Resident: Electronically Signed by: NILSA ABI @ 08/17/2021 09:31 PM Normal [facility] Comment on above: Order Comment: Evalu ate Operative Reporton Operative Report MR#: [id number] [facility] Pt. Name: Yasmani December Room #: 0C Discharge Date: Birthdate: 1985 OPERATIVE REPORT DATE OF SURGERY: 06/26/2021 SURGEON: Steve Chandra M.D. GALLERY MANAGER: Pooja Prescott. PREOPERATIVE DIAGNOSIS: Left Kienbock disease, stage II. POSTOPERATIVE DIAGNOSIS: Left Kienbock disease, stage II. OPERATIVE PROCEDURE: Left wrist core decompression. DESCRIPTION OF PROCEDURE: Under regional anesthetic, the patient's left upper extremity had been prepped and draped for the proposed procedure. Tourniquet applied to the left proximal humerus, was inflated to 250 mmHg following exsanguination of the limb by application of an Esmarch bandage. At this time, under fluoroscopic guidance, a position for placement of a wire was identified just along the dorsal radial aspect of the wrist with a wire directed towards the lunate fossa. At this time, a transverse incision was made and blunt dissection was used to delineate the bone. The tendons were retracted dorsally, allowing exposure of the bone. At this time, protecting all the soft tissues, the guidewire was then inserted and a 0.062 inch Nenita wire advanced under radiographic guidance to the level of the lunate fossa. At this time, a 7.5 mm cannulated drill was then inserted over the guidewire directed towards the lunate fossa. Excellent position was confirmed in both AP and lateral radiographic projections. The guidewire and drill removed followed with placement of a curette within the bone tunnel whereby the tunnel was curetted. Wound irrigated with normal saline solution. Wound closed with a 4-0 Biosyn established in a running subcuticular fashion. Wound reinforced with Steri-Strips. A sterile bulky dressing was applied and the wrist was protected with application of a wrist splint. There were no complications. The patient was transferred to recovery room in stable condition. ESTIMATED BLOOD LOSS: 0 mL. Electronically Signed by: Steve Chandra M.D. 06/28/2021 08:03 A Steve Chandra M.D. Date Dict: 06/26/2021/12:16 P/Steve Chandra M.D. Date Trans: 06/26/2021 02:33 P/mmo [id number] cc: Durga Watters M.D. [address] [place] [phone] Normal [facility] POC GLUCOSE LABon 06-26-2021 Glucose [Mass/Vol] 119 mg/dL High 70-100 [facility] Comment on above: Performed By: #### [id number] #### [address] WRIST LEFT 2 VWSon 1 WRIST LEFT 2 VWS [facility] Department of Radiology [address] [place] [phone] Patient Name: YASMANIDecember : 1985 Sex: F Age: Race: White Pt. Location: [facility] Patient Status: Ordered Date: 06/26/2021 7:05:00 AM Completed Date: 06/26/2021 01:50 PM Requesting Provider: YAZAN CHANDRA Attending Provider: YAZAN CHANDRA Report Copy To: Signs & Symptoms: Left wrist core decompression History: Left wrist core decompression Comments: Left wrist core decompression Exam: [facility] 2 [facility] WRIST LEFT 2 S 06/26/2021 1:50 PM CLINICAL INDICATIONS: Left wrist core decompression TECHNOLOGIST COMMENTS: Dr. Chandra used 9 seconds of fluoro time for a left wrist decompression QUESTION FOR THE RADIOLOGIST: Left wrist core decompression PROTOCOL: AP(PA) and Lateral views were obtained. COMPARISON: None IMPRESSION: Fluoroscopy provided intraoperatively. Seconds of fluoroscopy time was utilized 11 images from fluoroscopic evaluation demonstrate stages of the procedure. Electronically signed: Ivan Rojas. Transcribed by: [email or web address], User Resident: Electronically Signed by: IVAN ROJAS @ 06/26/2021 06:58 PM Normal [facility] Comment on above: Order Comment: Left wrist core decompression WRIST LEFT 3 [facility] 1 WRIST LEFT 3 S [facility] Department of Radiology [address] [place] [phone] Patient Name: December : 1985 Sex: F Age: Race: White Pt. Location: Patient Status: D Ordered Date: 06/14/2021 2:10:00 PM Completed Date: 06/14/2021 02:14 PM Requesting Provider: YAZAN CHANDRA Attending Provider: Report Copy To: Signs & Symptoms: M25.532 Pain in left wrist I10 History: Comments: evaluate Exam: [facility]ST LEFT 3 [facility] 3 VWS 06/14/2021 2:14 PM CLINICAL INDICATIONS: M25.532 Pain in left wrist I10 TECHNOLOGIST COMMENTS: left wrist pain QUESTION FOR THE RADIOLOGIST: evaluate PROTOCOL: AP,Lateral and Oblique views were obtained. COMPARISON: None FINDINGS: No acute fracture. Degenerative change noted of the proximal carpal row with subarticular cyst of the lunate. Radioulnar articulation unremarkable. Intercarpal joint spaces are well-maintained. IMPRESSION: Degenerative change. No acute findings. Approved by:Dank Schwab06/15/2021 2:39 PM. I, Bravo Abernathy,have reviewed the image(s) and agree with the findings in this report. Electronically signed: Bravo Abernathy. Transcribed by: [id number], User Resident: BRAVO TURNER Electronically Signed by: BRAVO ABERNATHY @ 06/15/2021 03:28 PM I personally read this/these film(s) with this resident Normal [facility] Comment on above: Order Comment: evalu ate Outside Recordson 02-10-2019 Outside Records [id number] Normal [facility] Encounters Encounter Date Encounter Type Care Provider Facility Start: 09-04-2023 End: 09-04-2023 ambulatory Durga Watters Facility:[facility] Start: 09-04-2023 End: 09-04-2023 ambulatory MD Durga Watters Work Phone: [facility] Work Phone: Start: 09-04-2023 End: 09-04-2023 Patient encounter procedure MD Durga Watters Work Phone: [facility] [place] Work Phone: Start: 06-18-2023 End: 06-18-2023 ambulatory [facility] Start: 05-02-2023 End: 05-02-2023 ambulatory [facility] Start: 04-21-2023 End: 04-21-2023 ambulatory [facility] Start: 04-10-2023 End: 04-11-2023 ambulatory [facility] Start: 2022 End: 11-19-[address] DURGA WATTERS . Facility: Start: 06-10-2022 End: 06-11-[address] DURGA WATTERS . Facility: Start: 01-28-2022 End: 01-29-[address] LAURIE ARECHIGA . Facility: Start: 01-07-2022 End: 01-08-2022 ambulatory DURGA WATTERS Facility:[facility] Start: 06-26-2021 End: 06-27-2021 ambulatory DURGA WATTERS Facility:[facility] Procedures Date Procedure Procedure Detail Performing Clinician Start: 06-26-2021 ANESTH LOWER ARM SURGERY DURGA WATTERS Start: 06-26-2021 TREAT FOREARM BONE LESION LESLIEEfrain BRUMFIELDMACARIO Plan of Treatment Date Care Activity Detail Author Start: 09-04-2023 MR Breast - bilateral F [facility] Start: 09-04-2023 MRI of bilateral norah asts with contrast MR breast BI wo/w con CAD [facility] Payers Date Payer Category Payer Self-pay [id number] 2023 Private Health Insurance [id number] 2009 Unknown [id number] 1984 Unknown [id number] [id number] [id number] 1984 Unknown [id number] 2.16.8 [id number] 1984 Unknown [id number] 2.16.84 [id number] 1984 Unknown [id number] 2.16.84 [id number] 1984 Unknown [id number] 2.16.84 [id number] 1959 Unknown [id number] 1959 Unknown [id number] Unknown [id number] 2.16.8 [id number] Social History Date Type Detail Facility Start: 07[facility]22-[facility]23 [facility] Start: 1985 Sex Assigned At Female F [facility] Medical Equipment Procedure Code Equipment Code Equipment Original Text Equipment Identifier Dates Reduction of breast with reconstruction BREAST IMPLANT MEDIUM 440CC FDA Start: 01-08-2018 Reconstruction, breast and nipple, TRAM flap, liposuction [id number] 0.8-1.7MM FDA Start: 06-04-2018 Clinical Notes 11-27-2021 to 06-18-2023 Note Date & Type Note Facility 06-18-2023 Note ------ Attestation signed by Keya Chandra MD at 06/19/2023 3:56 PM As the teaching physician, I have personally performed or re-performed the history of present illness, physical exam and medical decision making activities of the encounter and verified the medical student's documentation. I made pertinent changes as necessary to ensure accurate documentation. ------ Orthopedic Surgery Subjective Post-op and Follow-up of the Left Wrist 9/20/23 Bailey Gruber is a 37 y.o. year old qgilm-dqid-cryahedp female presenting 7 weeks post debridement left wrist extensor tendon [ECU]. She reports improved ECU pain following surgery, more significant when sharp contact is made over the area. She has a history of left wrist osteotomy 01/07/2022 with radial shortening, lunate core decompression. She is reporting increased wrist pain over the lunate, 6/10, controlled with tylenol and ibuprofen. She previously discussed proimal row carpectomy, but is not ready to proceed with surgery and has had minimal relief with CSI. 05/02/23 Bailey Gruber is a 37 y.o. year old qmrxp-gjve-cphbcyrd female presenting 10 days status post debridement left wrist extensor tendon [ECU]. Patient reports that she definitely is better than the preoperative state. She has no significant pain. Patient History Past Surgical History: Procedure Laterality Date BREAST RECONSTRUCTION Right SECTION, LOW TRANSVERSE HYSTERECTOMY MASTECTOMY Left no iv and blood pressure at left arm OTHER SURGICAL HISTORY fatty tumor removed TONSILLECTOMY WRIST OSTEOTOMY Left 01/07/2022 radial shortening, lunate core decompression WRIST SURGERY Left 04/21/2023 ECU tendon debridement Past Medical History: Diagnosis Date Cancer (CMS/HCC) 2016, breast left Irregular heart beat tachycardia 2018 Kienbock's disease PONV (postoperative nausea and vomiting) Objective General: Body mass index is 30.02 kg/m???. No acute distress, comfortable Respiratory: Unlabored breathing with normal rate, no cough Cardiovascular: Warm well perfused extremities Psych: Appropriate mood behavior MSK: Examination of the left wrist revealed incision had healed well. There are no signs of infection. She was assessed to be neurovascular intact. He was able to make a complete fist. Full ROM and strength of the left wrist. Pain elicited with palpation over the lunate. ECU synergy test negative Assessment/Plan Assessment: Bailey Gruber is a 37 y.o. year old female with status post debridement left ECU tendon and excision cyst tendon sheath. She is reporting improved ECU pain compared to her preoperative state. She is experiencing come pain with contact of her radial head and would like a new brace to provide support from impact. She is experiencing increased pain associated with her lunate following wrist osteotomy, radial shortening, and lunate core compression 01/07/22. Surgical and non-surgical treatments were discussed, and the patient agrees that PRC would not be desired at this time. Patient should repeat x-rays of the left wrist in 6 months to assess her condition. Plan: -At home PT for left wrist -Wrist brace for left wrist support -Follow-up with xrays of left wrist in 6 months -If concerns arise, please contact clinic Dinesh David [facility] 06/18/23 [facility] 05-02-2023 Note Orthopedic Surgery Subjective Post-op of the Left Wrist Bailey Gruber is a 37 y.o. year old gxjhg-uqvv-vtrhnxly female presenting 10 days status post debridement left wrist extensor tendon [ECU]. Patient reports that she definitely is better than the preoperative state. She has no significant pain. Patient History Past Surgical History: Procedure Laterality Date BREAST RECONSTRUCTION Right SECTION, LOW TRANSVERSE HYSTERECTOMY MASTECTOMY Left no iv and blood pressure at left arm OTHER SURGICAL HISTORY fatty tumor removed TONSILLECTOMY WRIST OSTEOTOMY Left 01/07/2022 radial shortening, lunate core decompression WRIST SURGERY Left 04/21/2023 ECU tendon debridement Past Medical History: Diagnosis Date Cancer (CMS/HCC) 2016, breast left Irregular heart beat tachycardia 2018 Kienbock's disease PONV (postoperative nausea and vomiting) Objective General: Body mass index is 30.02 kg/m???. No acute distress, comfortable Respiratory: Unlabored breathing with normal rate, no cough Cardiovascular: Warm well perfused extremities Psych: Appropriate mood behavior MSK: Examination of the left wrist revealed incision had healed well. There are no signs of infection. She was assessed to be neurovascular intact. He was able to make a complete fist. Assessment/Plan Bailey Gruber is a 37 y.o. year old female with status post debridement left ECU tendon and excision cyst tendon sheath with an improvement of pain. She was instructed in scar modalities and gentle stretches. She will be reassessing in 6 weeks to review her functional status. [facility] 04-22-2023 Note No concerns as per c all back guidelines [facility] 04-21-2023 Note Patient: Bailey her Procedure Summary Date: 04/21/23 Room / Location: [facility] OR [address] [place] [address] [facility] OR Anesthesia Start: 957 Anesthesia Stop: 1038 Procedure: wrist Ecu tendon debridement (Left: Wrist) Diagnosis: Left wrist tendonitis Contusion of left wrist, initial encounter (Left wrist tendonitis [M77.8]) (Contusion of left wrist, initial encounter [S63.653A]) Surgeons: Keya Chandra MD Responsible Provider: Karla Roblero MD Anesthesia Type: MAC ASA Status: 3 Anesthesia Type: MAC Vitals Value Taken Time BP 140/66 04/21/23 1113 Temp 36 ???C (96.8 ???F) 04/21/23 1040 Pulse 76 04/21/23 1113 Resp 16 04/21/23 1113 SpO2 98 % 04/21/23 1113 Anesthesia Post Evaluation Patient location during evaluation: PACU Patient participation: complete - patient participated Level of consciousness: awake Pain score: 2 Pain management: adequate Airway patency: patent Cardiovascular status: acceptable Respiratory status: acceptable Patient is hemodynamically stable and is able to be discharged from PACU per anesthesia protocol. No notable events documented. [facility] 04-21-2023 Note Discussed patient's antibiotic allergies with Dr. Misha Banks: Patient has reported allergies to the following medications: Base on cross reactivity of medications, cefazolin should NOT produce a cross-reactivity reaction. Side chains of cefazolin are significantly different from penicillin. Staff will monitor patient closely for any adverse reactions. Junior Perales, FrancoD [facility] 04-21-2023 Note Peripheral Block Patient location during procedure: pre-op Start time: 04/21/2023 9:30 AM End time: 04/21/2023 9:48 AM Reason for block: primary anesthetic Staffing Performed: resident/ELEMENT SETTER/CAA Anesthesiologist: Karla Roblero MD Resident/ELEMENT SETTER: Nilsa Shaw MD Preanesthetic Checklist Completed: patient identified, IV checked, site marked, risks and benefits discussed, surgical consent, monitors and equipment checked, pre-op evaluation and timeout performed Peripheral Block Patient position: supine Prep: ChloraPrep Patient monitoring: continuous pulse ox and heart rate Block type: axillary Laterality: left Injection technique: single-shot Guidance: ultrasound guided Needle Needle type: short-bevel Needle gauge: 22 G Needle length: 2 in Needle localization: ultrasound guidance Medications Administered midazolam (VERSED) IV - intravenous 2 mg - 04/21/2023 9:30:00 AM fentaNYL (SUBLIMAZE) IV - intravenous 100 mcg - 04/21/2023 9:30:00 AM bupivacaine HCl (Marcaine) 0.5 % (5 mg/mL) injection - injection 150 mg - 04/21/2023 9:30:00 AM Assessment Injection assessment: negative aspiration for heme and no paresthesia on injection Paresthesia pain: none Heart rate change: no Slow fractionated injection: yes [facility] 04-21-2023 Note Patient: Bailey her Procedure Information Date/Time: 04/21/23 1020 Procedure: wrist Ecu tendon debridement (Left: Wrist) Location: [facility] OR [address] [place] [address] OR Surgeons: Keya Chandra MD Relevant Problems Anesthesia (+) PONV (postoperative nausea and vomiting) Cardio (within normal limits) Endo (within normal limits) GI (within normal limits) /Renal (within normal limits) Neuro/Psych (within normal limits) (-) CVA (cerebral vascular accident) (CMS/HCC) (-) Seizures (CMS/HCC) Pulmonary (within normal limits) Clinical information reviewed: Tobacco Allergies Meds Med Hx Surg Hx OB Status Fam Hx Soc Hx Physical Exam Airway Mallampati: II TM distance: >3 FB Neck ROM: full Cardiovascular Rhythm: regular Rate: abnormal Dental - normal exam Pulmonary - normal exam Abdominal - normal exam Anesthesia Plan ASA 3 regional The patient is a current smoker. intravenous induction Postoperative administration of opioids is intended. Anesthetic plan and risks discussed with patient. Use of blood products discussed with patient who consented to blood products. Plan discussed with attending. Additional Equipment Requests [facility] 04-10-2023 Note ------ Attestation signed by Keya Chandra MD at 04/13/2023 8:53 AM As the teaching physician, I have personally performed or re-performed the history of present illness, physical exam and medical decision making activities of the encounter and verified the medical student's documentation. I made pertinent changes as necessary to ensure accurate documentation. ------ Orthopedic Surgery Subjective Pain and Follow-up of the Left Wrist 04/10/23 Bailey Gruber is a 37 y.o. female presenting for evaluation of left wrist pain. Patient has a history of Kienbocks disease and was treated with core decompression in 05/2021 and subsequent radial shortening osteotomy & lunate core decompression in 12/2021. Patient left wrist pain continued post-operatively and she received CSI for deQuervain's tenosynovitis on 02/2022 and CSI in ECU tendon sheath in 05/2022. Patient states her pain is located on the ulnar side of the wrist. She states she has flares of pain and swelling in which her finger begin to swell. She wears a brace intermittently and uses ibuprofen without relief. Review of Systems positive for: Left wrist pain Patient History Past Surgical History: Procedure Laterality Date WRIST OSTEOTOMY Left 01/07/2022 radial shortening, lunate core decompression Past Medical History: Diagnosis Date Kienbock's disease Objective General: Body mass index is 29.86 kg/m???. No acute distress, comfortable Respiratory: Unlabored breathing with normal rate, no cough Cardiovascular: Warm well perfused extremities Psych: Appropriate mood behavior MSK: Evaluation of left wrist reveals no gross deformity, swelling, or erythema. Palpation along ECU tendon produces mild pain. Left wrist flexion was measured at 40 degrees, and extension at 50 degrees. Positive ECU synergy test. Imaging personally reviewed: - Left wrist 3 view x-ray showed signs of cystic changes and sclerosis from previous x-rays. No signs of new collapse. Assessment/Plan Bailey Gruber is a 37 y.o. female with Kienbocks disease 15 months s/p left radial shortening osteotomy and lunate core decompression, 1 year s/p CSI for DeQuervain's tenosynovitis which has resolved, and 8 months s/p CSI of ECU tendon sheath. 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 - Discussed with patient the radiographic cystic changes from previous x-rays. - given patients presentation, discussed that pain is thought to be due to ECU tendinitis and not from cystic changes of lunate. - Patient agreeable to have left wrist ECU tendon debridement given that CSI of ECU tendon sheath provided no relief. - surgery likely to be scheduled either next week or the following week. - patient instructed to continue conservative treatment for pain until surgery. Nish Hayes 04/10/23 4:20 PM [facility] 11-19-2022 Note PROCEDURE: XR HIP LT 2 3V W PELVIS HISTORY: Pain of left hip joint , chronic COMPARISON: None. FINDINGS: BONES:No fracture, acute abnormality, or significant arthropathy. SOFT TISSUES:No visible soft tissue swelling. EFFUSION:None visible. OTHER: Negative. IMPRESSION: 1. Normal appearance of left hip. Electronically authenticated by: GIANNI MORELAND Date: 2022-11-19 11:14 [facility] 06-10-2022 Note PROCEDURE: XR ANKLE RT MIN 3 VIEWS HISTORY: Pain of right ankle joint ; posterior ankle pain after falling COMPARISON: None. FINDINGS: BONES:No fracture, acute abnormality, or significant arthropathy. SOFT TISSUES:Lateral soft tissue swelling. EFFUSION:None visible. OTHER: Negative. IMPRESSION: 1. Moderate swelling suggesting soft tissue injury. 2. No acute bone abnormality. Electronically authenticated by: GIANNI MORELAND Date: 2022-06-10 12:52 [facility] 01-28-2022 Note DISCHARGE SUMMARY DISCHARGE DATE: 02/13/2022 PROCEDURE: Diagnostic laparoscopy which was then converted to exploratory laparotomy. PRIMARY DIAGNOSIS: Pelvic pain, left ovarian cyst. HOSPITAL COURSE: As expected. Please see chart for full details. LABORATORY DATA: Please see chart. DISCHARGE CONDITION: Stable. CONSULTATION: Anesthesia. DISCHARGE INSTRUCTIONS: 1. Diet: Regular. 2. Medications: a. Percocet 5/325 one to two p.o. every 4-6 hours p.r.n. pain. b. Motrin 800 one p.o. every 8 hours p.r.n. pain. 3. Followup in one week. Restrictions: Pelvic rest for 6 weeks. No heavy lifting. May drive when pain free and no longer on narcotics. [facility] Signed and Approved by: DR LAURIE ARECHIGA . 02/14/2022 21:23:00 [facility] 01-28-2022 Note The [place], [place] NAME: BAILEY GRUBER DATE OF : MEDICAL REC#: [id number] SERVICER TRAVEL TRAILERS: [address] [facility], TRANSADMIT DATE: 01/28/2022 06:08:00 HEALTH INFORMATION MANAGEMENT DIRECTOR DATE: 01/28/2022 23:00 DICTATING PHYSICIAN: LAURIE ARECHIGA DICTATION DATE: 01/28/2022 09:00 OPERATIVE NOTE OPERATION DATE: 01/28/2022 PREOPERATIVE DIAGNOSIS: Pelvic pain, left ovarian cyst. POSTOPERATIVE DIAGNOSIS: Pelvic pain, left ovarian cyst. PROCEDURE: Diagnostic laparoscopy which was then converted to an exploratory laparotomy. ANESTHESIA: General. SURGEON: Laurie Arechiga D.O. GALLERY MANAGER: CUBA Hough URINE OUTPUT: Yellow and clear. BLOOD LOSS: 50 mL. SPECIMEN: Left ovary. FINDINGS: Left ovarian cyst, significant adhesions of the sigmoid colon to the left ovary, dense in nature; omental adhesions to the anterior abdominal wall. Otherwise, absent uterus, right tube and ovary and absent left tube. PROCEDURE: The patient was taken back to the Operating Room where she was placed in dorsal lithotomy position after given general anesthesia. The patient was prepped and draped in normal sterile fashion. A sponge stick was placed into the patient's vagina. Attention was turned to the patient's abdomen, where a small umbilical incision was made. The fascia was tented using Haritha clamps and the fascia was entered sharply. Confirmation of intraabdominal placement of the 10 mm port was confirmed under direct visualization using a laparoscope. The patient's abdomen was then insufflated using CO2 gas with approximately 4 liters. A second port was placed lt laterally, this was done under direct visualization with a 5 mm port. Survey of the patient's abdomen demonstrated normal liver and gallbladder. Survey of the patient's pelvic anatomy demonstrated significant omental adhesions to anterior abdominal wall, and adhesions of lt ovary to the sigmoid colon, otherwise absent uterus and rt ovary and bilateral tubes. No endometrial implants could be noted Due to significant adhesions pt was converted to exploratory laparotomy. All instruments were removed from the patient's abdomen. The patient's infraumbilical fascia was closed using #0 Vicryl on a GI needle. The patient's skin was closed laterally and infraumbilically using 4-0 Vicryl. She was then prepped and draped in the normal sterile fashion. A Pfannenstiel skin incision was then made 2 cm above the symphysis and pubis and carried down to underlying rectus fascia using a Bovie. The fascia was incised in the midline and extended bilaterally using Brown scissors. Two Haritha clamps were placed on the superior aspect of the fascia and dissected off the underlying rectus muscle. The same was performed on the inferior aspect as well. The muscle was then in the midline. The peritoneum was identified and entered bluntly. Peritoneum was then extended superiorly and inferiorly with good visualization of the bladder. An O'Diaz- O-Angel retractor was placed into the patient's abdomen. The bowel was packed away with moist laparotomy sponges and the bladder blade was inserted. Survery of pts abdomen demonstrated significant adhesions of lt ovary to sigmoid colon and pelvic side wall which was bluntly and sharply dissected, the ligasure was then used to come across the infundibular pelvic ligament and the ovary was transected and ligated, The ligasure apparatus was used to takes down omental adhesions. Excellent hemostasis was assured. The patient's abdomen was copiously irrigated using warm saline. Please note ureteral stents were placed by dr pena and removed at end of surgery, stents easily removed and intact. After excellent hemostasis was assured, all instruments were removed from the patient's abdomen. The patient's peritoneum was closed using 3-0 Vicryl in a running fashion. The patient's fascia was closed using #0 Vicryl in a running fashion. The patient's skin was closed using 4-0 on brooke needle. The patient tolerated the procedure well. Sponge, lap, and needle counts were correct times two. Patient taken to the Recovery Room in stable condition. Electronically Authenticated and Edited by: Laurie Arechiga DO on 02/12/2022 09:11 AM EDT [facility] Signed and Approved by: DR LAURIE ARECHIGA . 02/12/2022 09:11:00 [facility] 11-27-2021 Note [id number]:127 [facility] Evaluation note No assessment information availa steffen [facility] Work Phone: Summary Purpose Family History No Family History Records FoundNo Family History Records FoundNo Family History Records FoundNo Family History Records FoundNo Family History Records FoundNo Family History Records Found Advance Directives No Advanced Directives Records Found Advance Directive Response Recorded Date/ Time Advance Directives No July 22, 2023 2:40pm Chief Complaint and Reason for Visit Chief Complaint z85.3 n63.0 n63.13 c 50.912 Additional Source Comments INFORMATION SOURCE (unrecogn ized section and content) DATE CREATED AUTHOR 02/20/2019 [facility] DATE CREATED AUTHOR AUTHOR'S ORGANIZ ATION 02/05/2022 [facility] DATE CREATED AUTHOR AUTHOR'S ORGANIZ ATION 06/08/2022 [facility] DATE CREATED AUTHOR AUTHOR'S ORGANIZ ATION 01/25/2023 [facility] DATE CREATED AUTHOR AUTHOR'S ORGANIZ ATION 08/16/2023 [facility] DATE CREATED AUTHOR AUTHOR'S ORGANIZ ATION 09/12/2023 [facility] Care Teams (unrecognized sec tion and content) Team Status: Active Member Role Status Dates Durga Watters MD Primary Care Provider Active Team Status: Inactive Member Role Status Dates Durga Watters MD Primary Care Provider Active Laurie Arechiga Attending Provider Active Goals (unrecognized section and content) Goals may be documented in a n alternate section FOR RECORDS PERTAINING TO PATIENTS WHO ARE OR HAVE BEEN ENROLLED IN A CHEMICAL DEPENDENCY/SUBSTANCEABUSE PROGRAM, SOME INFORMATION MAY BE OMITTED. This clinical summary was aggregated from multiple sources. Caution should be exercised in using it in the provision of clinical care. This summary normalizes information from multiple sources, and as a consequence, information in this document may materially change the coding, format and clinical context of patient data. In addition, data may be omitted in some cases. CLINICAL DECISIONS SHOULD BE BASED ON THE PRIMARY CLINICAL RECORDS. [employer] [facility]. provides no warranty or guarantee of the accuracy or completeness of information in this document.
[2023-11-16 00:29] VITALS: BP 124/90; PULSE 113; RESP 18; TEMP 36.7; O2SAT 99; BMI 29.1
--- NOTE | 2023-11-16 00:36 | XR_ITS ---
[facility] [id number] Patient Name: JOANN JUNE MRN: [id number] date: 1985 Sex: F Assigned Patient Location: ER Current Patient Location: ER Accession/Order Number: [id number] Exam Date: 11/16/2023 00:55 Report Date: 11/16/2023 02:15 At the request of: FLETCHER AZUL Procedure: XR ankle LT min 3V EXAM: XR ankle LT min 3V HISTORY: Fall with twisted left ankle. Left ankle pain. COMPARISON: None. TECHNIQUE: AP, oblique and lateral left ankle x-rays. FINDINGS: There is a 4 mm linear calcific density adjacent to the anterior distal talus on the lateral view with overlying soft tissue swelling, favoring a small avulsed fracture fragment. No other potential acute osseous injury is seen. Ankle mortise is intact. There is a miniscule plantar calcaneal spur with mild enthesopathy at the insertion of the Achilles tendon. XR/XR ankle LT min 3V IMPRESSION: Nonspecific 4 mm linear calcific density adjacent to the anterior distal talus suspicious for a small avulsed fracture fragment, with mild overlying soft tissue swelling. Correlation for focal tenderness recommended. No other potential acute left ankle findings are seen. Electronically authenticated by: MARLY EASON Date: 11/16/2023 02:15
--- NOTE | 2023-11-16 00:41 | ED_ITS ---
HPI - Extremity Injury (Lower) General Chief Complaint: Extremity Injury, Lower Stated Complaint: LE INJURY Time Seen by Provider: 11/16/23 00:39 Source: patient Mode of arrival: Wheelchair Limitations: no limitations History of Present Illness HPI Narrative: slipped on wet spot on her stairs while walking down the stairs and injured her left ankle. Denies other injury. Not able to weight bear due to pain complaint: Reports ankle injury Related Data Home Medications Medication Instructions Recorded Confirmed metformin 1,000 mg tablet 1,000 mg PO DAILY 07/14/23 11/16/23 sitagliptin phosphate 100 mg 100 mg PO DAILY 07/14/23 11/16/23 tablet (Januvia) adapex PO DAILY 11/16/23 Allergies Allergy/AdvReac Type Severity Reaction Status Date / Time codeine Allergy chest pain Verified 11/16/23 00:33 Sulfa (Sulfonamide Allergy Blister Verified 11/16/23 00:33 Antibiotics) amoxicillin' Allergy blisters Uncoded 11/16/23 00:33 bactrim Allergy blisters Uncoded 11/16/23 00:33 cleocin Allergy Blister Uncoded 11/16/23 00:33 demerol Allergy Hives Uncoded 11/16/23 00:33 doxycycline Allergy Blister Uncoded 11/16/23 00:33 vicodin Allergy hives Uncoded 11/16/23 00:33 Review of Systems ROS Status of ROS 10 or more systems reviewed and unremark able except as noted in history and below [facility] Medical History (Updated 11/16/23 @ 02:29 by Ronald Farmer MD) 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) Diabetes ?E11.9 - Type 2 diabetes mellitus without complications (ICD-10) Hidradenitis suppurativa ?L73.2 - Hidradenitis suppurativa (ICD-10) Migraines ?G43.909 - Migraine, unspecified, not intractable, without status migrainosus (ICD-10) Malignant phyllodes tumor of left breast ?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 - Malignant neoplasm of unspecified site of left female breast (ICD-10) 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) COVID ?U07.1 - COVID-19 (ICD-10) Chronic left hip pain ?M25.552 - Pain in left hip (ICD-10) ?G89.29 - Other chronic pain (ICD-10) Surgical History (Updated 07/14/23 @ 10:23 by Shaina Franklin) Hx of excision of mass ?Z98.890 - Other specified postprocedural states (ICD-10) History of surgery on lower extremity ?Z98.890 - Other specified postprocedural states (ICD-10) History of dilation and curettage ?Z98.890 - Other specified postprocedural states (ICD-10) History of tonsillectomy and adenoidectomy ?Z90.89 - Acquired absence of other organs (ICD-10) S/P breast reconstruction ?Z98.890 - Other specified postprocedural states (ICD-10) Status post partial mastectomy of left breast ?Z90.12 - Acquired absence of left breast and nipple (ICD-10) History of total hysterectomy ?Z90.710 - Acquired absence of both cervix and uterus (ICD-10) Previous section ?Z98.891 - History of uterine scar from previous surgery (ICD-10) H/O left wrist surgery ?Z98.890 - Other specified postprocedural states (ICD-10) H/O wrist surgery ?Z98.890 - Other specified postprocedural states (ICD-10) History of carpal tunnel release ?Z98.890 - Other specified postprocedural states (ICD-10) Social History Smoking status: Current every day smoker Exam Constitutional Vital Signs, click to edit/add: Last Vital Signs Temp 98.1 F 11/16/23 00:29 Pulse 113 H 11/16/23 00:29 Resp 18 11/16/23 00:29 BP 124/90 11/16/23 00:29 Pulse Ox 99 11/16/23 00:29 O2 Del Method Room Air 11/16/23 00:29 Common normals: no apparent distress, average body habitus, oriented x3, no limitations, healthy appearing, alert and well nourished Eye Common normals: PERRL, EOMs intact bilaterally and conjunctivae normal Respiratory Common normals: normal respiratory effort, no retractions and no use of accessory muscles Extremity Other: mod tenderness and mild swelling left ankle Neuro Common normals: oriented x3, CN's II-XII intact bilaterally, moves all extremities, no focal motor deficits and no sensory deficits noted Psych Appearance: grossly normal Course Vital Signs Vital signs: Vital Signs Temperature 98.1 F 11/16/23 00:29 Pulse Rate 113 H 11/16/23 00:29 Respiratory Rate 18 11/16/23 00:29 Blood Pressure 124/90 11/16/23 00:29 Pulse Oximetry 99 11/16/23 00:29 Oxygen Delivery Method Room Air 11/16/23 00:29 Temperature 98.1 F 11/16/23 00:29 Pulse Rate 113 H 11/16/23 00:29 Respiratory Rate 18 11/16/23 00:29 Blood Pressure 124/90 11/16/23 00:29 Pulse Oximetry 99 11/16/23 00:29 Oxygen Delivery Method Room Air 11/16/23 00:29 MDM - Extremity Injury (Lower) MDM Narrative Medical decision making narrative: patient presents after slip and fall accident while walking down her stairs. per radiology possible avulsion chip at medial talus. Patient informed and placed in a Cam Boot.She has crutches at home. Discharged home to follow up with Podiatry Imaging Data Chest x-ray: Radiologist's impression: ITS Impressions Ankle X-Ray 11/16/23 00:36 IMPRESSION: Nonspecific 4 mm linear calcific density adjacent to the anterior distal talus suspicious for a small avulsed fracture fragment, with mild overlying soft tissue swelling. Correlation for focal tenderness recommended. No other potential acute left ankle findings are seen. Electronically authenticated by: MARLY EASON Date: 11/16/2023 02:15 Discharge Plan Discharge Chief Complaint: Extremity Injury, Lower Clinical Impression: Avulsion fracture of left ankle Patient Disposition: Home, Self-Care Prescriptions / Home Meds: No Action metformin 1,000 mg tablet 1,000 mg PO DAILY Januvia 100 mg tablet 100 mg PO DAILY adapex 5 mg PO DAILY Instructions: Ankle Fracture (ED) Additional Instructions: follow up with Podiatry Stand Alone Forms: Portal Instructions Referrals: Andres Watters MD [Primary Care Provider] - 1 week
[2023-11-16] MEDS: IBUPROFEN 400 MG TABLET 800 MG PO (02:01)
== END 2023-11-16 02:54 | disposition home or self-care (01) ==
PROVIDERS: Emergency Provider Internal Medicine; PCP Family Medicine
DX: S92.152A Displaced avulsion fracture (chip fracture) of left talus, initial encounter for closed fracture (principal); W10.9XXA Fall (on) (from) unspecified stairs and steps, initial encounter; L51.1 Stevens-Johnson syndrome; M93.1 Kienbock's disease of adults; Z86.16 Personal history of COVID-19; M25.552 Pain in left hip; G89.29 Other chronic pain; Z98.890 Other specified postprocedural states; Z79.84 Long term (current) use of oral hypoglycemic drugs; Z79.899 Other long term (current) drug therapy; Z90.89 Acquired absence of other organs; Z90.12 Acquired absence of left breast and nipple; Z90.710 Acquired absence of both cervix and uterus; Z98.891 History of uterine scar from previous surgery; F17.210 Nicotine dependence, cigarettes, uncomplicated
CPT/HCPCS: 73610; 99284

== ENCOUNTER 2024-06-04 08:11 | Outpatient (OUT) | payer BC, MEDICAID, SELFPAY ==
[2024-06-04 08:29] LABS: Basophils Percent Auto 0.3 % (0.2-2.0); Eosinophils Absolute Auto 0.1 10^3/uL (0.0-0.7); Hematocrit 43.8 % (36.0-48.0); Immature Granulocytes Abs Auto 0.05 10^3/uL (0.00-0.03); Immature Granulocytes Pct Auto 0.5 % (0.0-0.5); Lymphocytes Percent Auto 21.7 % (20.5-60.0); Mean Corpuscular HGB Conc 34.2 g/dL (29.9-35.2); Mean Corpuscular Hemoglobin 29.6 pg (26.7-34.0); Mean Corpuscular Volume 86.4 fL (81.0-99.0); Mean Platelet Volume 9.4 fL (9.5-13.5); Monocytes Absolute Auto 0.4 10^3/uL (0.3-0.8); Monocytes Percent Auto 4.3 % (1.7-12.0); Neutrophils Absolute Auto 6.7 10^3/uL (1.4-6.5); Neutrophils Percent Auto 72.2 % (43.0-75.0); Platelet Count 271 10^3/uL (150-450); Red Blood Count 5.07 10^6/uL (4.20-5.40); White Blood Count 9.3 10^3/uL (4.0-11.0)
[2024-06-04 09:41] LABS: Estimated Average Glucose 117 mg/dL; Glycohemoglobin A1C 5.7 % (4.5-6.2)
[2024-06-04 10:57] LABS: Alanine Aminotransferase 28 U/L (14-59); Albumin Globulin Ratio 0.9; Albumin Level 3.6 g/dL (3.4-5.0); Alkaline Phosphatase 77 U/L (46-116); Anion Gap 13.1; Aspartate Amino Transferase 12 U/L (15-37); BUN Creatinine Ratio 9.5; Bilirubin Total 0.4 mg/dL (0.2-1.0); Calcium 8.9 mg/dL (8.5-10.1); Carbon Dioxide 26.8 mmol/L (21.0-32.0); Chloride 101 mmol/L (98-107); Chol HDL Ratio 3.5; Cholesterol 154 mg/dL (<=200); Estimated GFR (African America >60 (>=60); Estimated GFR (Non-African Ame >60 (>=60); Free T3 3.08 pg/mL (2.18-3.98); Glucose 127 mg/dL (74-106); HDL Cholesterol 44 mg/dL (40-60); LDL Cholesterol Calculated 92.2 mg/dL; Potassium 3.9 mmol/L (3.5-5.1); Sodium 137 mmol/L (136-145); Thyroid Stimulating Hormone 2.607 uIU/mL (0.358-3.740); Total Protein 7.6 g/dL (6.4-8.2); Triglycerides 89 mg/dL (<=150); VLDL CHOLESTEROL 17.8 mg/dL
== END 2024-06-04 08:12 | disposition home or self-care (01) ==
LOC: LAB 08:13
PROVIDERS: PCP Family Medicine; Visit Provider Family Medicine
DX: Z00.00 Encounter for general adult medical examination without abnormal findings (principal)
CPT/HCPCS: 36415; 80053; 80061; 83036; 83540; 84436; 84443; 84481; 85025

== ENCOUNTER 2024-07-26 21:39 | Outpatient (REF) | payer BC, SELFPAY ==
--- OUTSIDE RECORDS SUMMARY | 2024-07-26 21:43 | XMS_ITS | CCD ---
Author Organization [facility] Care Team Providers Care Leather Lacer Name Role Phone DURGA WATTERS Primary Care Unavailable DURGA WATTERS Referring Unavailable MACARIO, ABDULAZIM Surgeon Unavailable MACARIO, ABDULAZIM Attending Unavailable MACARIO, ABDULAZIM Admitting Unavailable [place] Procedure Practitioner Unavailab le DURGA WATTERS Primary Care Unavailable DURGA WATTERS Referring Unavailable MACARIO, ABDULAJESSICA Admitting Unavailable MACARIO, ABDULAZIM Attending Unavailable LISA ., DR SULLIVAN Attending Unavailable LISA ., DR SULLIVAN Admitting Unavailable HOY ., DR CALIXTO Primary Care Unavailable PENA ., DR PRICE Consulting Unavailable LISA ., DR SULLIVAN Consulting Unavailable AGUBOSIM KEVAN Consulting Unavailable CHIQUIS MORLEY Consulting Unavailable JUAQUIN VERGARA Consulting Unavailable HOY ., DR CALIXTO Admitting Unavailable HOY ., DR CALIXTO Attending Unavailable HOY ., DR CALIXTO Consulting Unavailable LOSY ., DR CALIXTO Primary Care Unavailable ZIEBER, DR GIANNI Sanders Consulting Unavailable HOY ., DR CALIXTO Admitting Unavailable HOY ., DR CALIXTO Attending Unavailable HOY ., DR CALIXTO Consulting Unavailable LOSY ., DR CALIXTO Primary Care Unavailable ANICETO, DR GIANNI Sanders Consulting Unavailable MD Durga Watters Primary Care Provider Brian Arechiga Attending Provider Durga Watters Primary Care Unavailable Brian Arechiga Attending Unavailable Brian Arechiga Admitting Unavailable BETSEY SMITH Referring Unavailable DURGA WATTERS Primary Care Unavailable MACARIO, KEYA Attending Unavailable MACARIO, KEYA Referring Unavailable MACARIO, KEYA Referring Unavailable MACARIO, KEYA Admitting Unavailable MACARIO, KEYA Attending Unavailable MACARIO, KEYA Attending Unavailable MACARIO, KEYA Attending Unavailable MACARIO, KEYA Attending Unavailable RUSHER, IRON Crocker Attending Unavailable RUSHER, IRON Crocker Referring Unavailable RUSHER, IRON Crocker Attending Unavailable Allergies Allergy Classification Reported Allergen(s) Allergy Type Date of Onset Reaction(s) Facility (3 sources) Amoxicillin; Translations: [AMOXICILLIN] Drug Allergy 01-10-20 17 Blister [facility] Repository (5 sources) Clindamycin; Translations: [CLINDAMYCIN] Drug Allergy 11-18-19 17 Blister [facility] Repository (5 sources) Codeine; Translations: [CODEINE] Drug Allergy 09-29-19 17 Blister [facility] Repository (5 sources) Doxycycline; Translations: [DOXYCYCLINE] Drug Allergy 11-18-19 17 Blister [facility] Repository (2 sources) Meperidine Drug Allergy 09-29-19 17 [facility] Repository (1 source) Sulfamethoxazole / Trimethoprim Drug Allergy 06-26-20 21 [facility] Repository (4 sources) Sulfonamides (Antibiotic); Translations: [SULFA (SULFONAMIDE ANTIBIOTICS)] Drug allergy (disorder) 09-29-19 17 [facility] Repository (1 source) Acetaminophen / HYDROcodone Drug Allergy 09-29-19 17 [facility] Repository (1 source) Amoxicillin Drug Allergy 09-29-19 17 [facility] Repository (1 source) Desonide Drug Allergy 09-29-19 17 [facility] Repository (2 sources) Acetaminophen; Translations: [acetaminophen] Drug Allergy 01-08-20 18 Unknown Reaction [facility] (2 sources) Adhesive agent; Translations: [adhesive] Allergy to substance 01-09-20 Rash [facility] (2 sources) HYDROcodone; Translations: [hydrocodone] Drug Allergy 01-09-20 Diarrhea [facility] (4 sources) Meperidine; Translations: [meperidine] Drug Allergy 01-02-20 17 Diarrhea [facility] (2 sources) sulfADIAZINE; Translations: [sulfadiazine] Drug Allergy 01-09-20 Blister [facility] (1 source) Amoxicillin Drug Allergy 01-09-20 [facility] Repository (1 source) Clindamycin Drug Allergy 01-09-20 [facility] Repository (1 source) Codeine Drug Allergy 01-09-20 [facility] Repository (1 source) Doxycycline Drug Allergy 01-09-20 [facility] Repository (2 sources) Acetaminophen / HYDROcodone; Translations: [HYDROCODONE-ACETAM INOPHEN] Drug Allergy 01-02-20 [facility] Repository (2 sources) Penicillins; Translations: [PENICILLINS] Propensity to adverse reactions to drug (disorder) 01-02-20 [facility] Repository (1 source) Sulfamethoxazole / Trimethoprim; Translations: [SULFAMETHOXAZOLE-T RIMETHOPRIM] Drug Allergy 04-10-20 [facility] Repository Problems Active Problems Problem Classification Problem Date Documented Da te Episodic/Chronic Menstrual disorders (1 source) Dysmenorrhea, unspecified; Translations: [DYSMENORRHEA UNSPECIFIED] Onset: 02-14-2022 Chronic Other aftercare (1 source) Other chcf (current) drug therapy; Translations: [Other chcf (current) drug therapy] Onset: 12-24-2023 Episodic Other connective tissue disease (2 sources) Other enthesopathies, not elsewhere classified; Translations: [Other enthesopathies, not elsewhere classified] Onset: 04-11-2023 Episodic Other non-traumatic joint disorders (4 sources) Pain in left hip; Translations: [PAIN IN LEFT HIP] Onset: 2022 Episodic Other skin disorders (1 source) Hidradenitis suppurativa; Translations: [Hidradenitis suppurativa] Onset: 12-24-2023 Episodic Substance-related disorders (1 source) Nicotine dependence, cigarettes, uncomplicated; Translations: [NICOTINE DEPEND CIGARETTES UNCOMP] Onset: 02-14-2022 Chronic Unclassified (1 source) Unspecified lump in unspecified breast; Translations: [Unspecified lump in unspecified breast] Onset: 09-04-2023 Unclassified (2 sources) Post-op; Translations: [Post-op] Onset: 05-02-2023 Past or Other Problems Problem Classification Problem [...] Test Name Value Interpretation Reference Range Facility Follow-Upon 01-01-2024 Follow-Up [id number] Yasmani,1985 F Date Provider Department Center 01/01/2024 373-KEYA CHANDRA MP ORTHO MPORTHO No family history on file Level of Service:04660 [place] OFFICE/OUTPATIENT ESTABLISHED LOW MDM 20 MIN Reason for Visit and Comments: Follow-up [310853] Pain [136] Normal [facility] MR breast BI wo/w con CADon 09-05-2023 MR breast BI wo/w con CAD [facility] Main [place] [address] [place] [address] MRI Report Signed Patient: YasmaniDecember MR#: [id number] : 1985 Acct:[id number] Age/Sex: 37 / F ADM Date: 09/04/23 Loc: MR Room: Type: [facility] Attending Dr: Brian Arechiga Copies to: Brian Arechiga DO Ordering Provider: Brian Arechiga DO Date of Service: 09/04/23 MR/MR [...] All imaged data was reviewed using the [employer] system. The postcontrast images were subtracted and [...] 1YR Impression dictated by: Andrew Ziegler Jr., D.O.09/05/2023 12:15 PM Dictation Location: [place] [address] Transcribed By: [facility] 09/05/23 1215 Dictated By: Andrew Ziegler Jr, DO 09/05/23 1209 Signed By: 09/05/23 1215 [facility] Telephoneon 07-14-2023 Telephone [id number] [facility],1985 F Date Provider Department [place] 07/14/2023 Theodora-PATRICA ROOT MP ORTHO MPORTHO No family history on file [facility] Follow-Upon 06-18-2023 Follow-Up [id number] [place] [address],1985 F Date Provider Department [place] 06/18/2023 CORY FUNES ORTHO MPORTHO No family history on file Level of Service:98604 [place] POSTOP FOLLOW UP VISIT RELATED TO ORIGINAL PX Reason for Visit and Comments: Post-op [483] Follow-up [791663] [facility] Office Visiton 05-02-2023 Follow-up visit [id number] Yasmani,1985 Date Provider Department [place] 05/02/2023 CORY FUNES ORTHO MPORTHO No family history on file Level of Service:14321 [place] POSTOP FOLLOW UP VISIT RELATED TO ORIGINAL PX Reason for Visit and Comments: Post-op [483] [facility] HISTOLOGY - TISSUE EXAMon LAB AP CASE REPORT Normal [facility] Comment on above: Order Comment: Pre-o p diagnosis:Left wrist tendonitis [M77.8]Contusion of left wrist, initial encounter [S60.212A] Result Comment: Surg ical Pathology Case: [id number] Authorizing Provider: Keya Chandra MD Collected: 04/21/2023 1015 Ordering Location: [facility] Ceballos Received: 04/21/2023 1[facility] [place] Pathologist: Shelli Miranda MD Specimen: Wrist, TENOSYNOVIUM OF LEFT EXTENSOR TENDON Performed By: #### L [id number] ####[facility] ([facility])[address] [place] [address] LAB AP CLINICAL INFORMATION [facility] Comment on above: Order Comment: Pre-o p diagnosis:Left wrist tendonitis [M77.8]Contusion of left wrist, initial encounter [S6A] Result Comment: Post -Op Diagnoses M77.8 - Left wrist tendonitis [ICD-10-CM] S60.212A - Contusion of left wrist, initial encounter [ICD-10-CM] Performed By: #### L [id number] ####[facility] ([facility])[address] [facility] [place] [address] LAB AP GROSS DESCRIPTION A. Wrist. [facility] Comment on above: Order Comment: Pre-o p diagnosis:Left wrist tendonitis [M77.8]Contusion of left wrist, initial encounter [S6A] Result Comment: Rece ived in formalin in a container labeled Bailey Yasmani, TENOSYNOVIUM OF LEFT EXTENSOR TENDON . The specimen consists of one soft white-tobin tissue measuring 1.0 x 0.3 x 0.2 cm. The entire specimen is submitted in 1 cassette. Lebron Cabezas, PGY1 Performed By: #### L [id number] ####[facility] ([facility])[address] [place] [address] LAB AP MICROSCOPIC DESCRIPTION Microscopic examination performed. [facility] Comment on above: Order Comment: Pre-o p diagnosis:Left wrist tendonitis [M77.8]Contusion of left wrist, initial encounter [S6] Performed By: #### L [id number] ####[facility] ([facility])[address] [place] [address] LAB AP REPORT FINAL DIAGNOSIS NARRATIVE [facility] Comment on above: Order Comment: Pre-o p diagnosis:Left wrist tendonitis [M77.8]Contusion of left wrist, initial encounter [S6] Result Comment: A. T enosynovium, extensor tendon of left wrist, excision: - Benign synovial tissue, consistent with procedure. - No malignancy identified. Performed By: #### L [id number] ####[facility] ([facility])[address] [place] [address] HPon 04-21-2023 HP H&P reviewed. The patient was examined and there are no changes to the H&P. Normal [facility] OPNOTEon 04-21-2023 OPNOTE wrist Ecu tendon debridement (L) Operative Note Date: 04/21/2023 Location: [facility] OR Name: Bailey Gruber, : 1985, Diagnosis Pre-op Diagnosis * Left wrist tendonitis [M77.8] * Contusion of left wrist, initial encounter [S60.A] Post-op Diagnosis * Left wrist tendonitis [M77.8] * Contusion of left wrist, initial encounter [S60.A] Procedures wrist Ecu tendon debridement 15006 - [place] DEBRIDEMENT BONE MUSCLE &/FASCIA 20 SQ CM/< Excision cyst tendon sheath left wrist Surgeons * Keya Macario - Primary Procedure Summary Anesthesia: Monitor Anesthesia Care ASA: III Estimated Blood Loss: 10 mL Specimens ID Source Type Tests Collected By Collected At Frozen? Priority Lab ID A Wrist Tissue HISTOLOGY - TISSUE EXAM Keya Chandra MD 04/21/23 1015 No Routine [id number] Description: TENOSYNOVIUM OF LEFT EXTENSOR TENDON Staff: Station Usher: Malu Pham RN Scrub Person: Radha Doshi, CLOSET ORGANIZER Indications: Bailey Gruber is an 37 y.o. female who is having surgery for Left wrist tendonitis [M77.8] Contusion of left wrist, initial encounter [S60.A]. Procedure Details: The patient was seen in [...] - hemodynamically stable. Condition: stable Keya Chandra Normal [facility] POCT GLUCOSE METER UNSOLICIT ED RESULTSon 04-21-2023 Glucose [Mass/Vol] 172 mg/dL High 70-105 [facility] Comment on above: Order Comment: Waive d Testing in the ED is performed under the ED CLIA certificate #[id number]. Result Comment: jhag eman Performed By: #### L [id number] ####[facility] ([facility])[address] [place] [address] Follow-Upon 04-10-2023 Follow-Up [id number] Yasmani,1985 F Date Provider Department Center 04/10/2023 Kelly-CORY CHANDRA ORTHO MPORTHO No family history on file Level of Service:85988 [place] OFFICE/OUTPATIENT ESTABLISHED LOW MDM 20-29 MIN Reason for Visit and Comments: Pain [136] Follow-up [986701] Normal [facility] HPon 04-10-2023 HP - Attestation signed by Keya Chandra MD at 04/13/2023 8:53 AM As the teaching physician, I have personally performed or re-performed the history of present illness, physical exam and medical decision making activities of the encounter and verified the medical student's documentation. I made pertinent changes as necessary to ensure accurate documentation. Orthopedic Surgery Subjective Pain and Follow-up of the Left Wrist 04/10/23December Yasmani is a 37 y.o. female presenting for [...] surgery. Nish Hayes 04/10/23 4:20 PM Normal [facility] WRIST LEFT 3 [facility] 2 WRIST LEFT 3 [facility] Department of Radiology [address] [place] [phone] Patient Name: YASMANI DECEMBER : 1985 Sex: F Age: Race: White Pt. Location: Patient Status: Ordered Date: 06/07/2022 8:45:00 AM Completed Date: 06/07/2022 11:14 AM Requesting Provider: YAZAN CHANDRA Attending Provider: Report Copy To: Signs & Symptoms: M25.532 Pain in left wrist I10 History: [place] Comments: Evaluate Exam: WRIST LEFT 3 [facility] WRIST LEFT 3 VWS 06/07/2022 11:14 AM CLINICAL INDICATIONS: M25.532 Pain [...] the findings in this report. Electronically signed: Danny Quintero. Transcribed by: [email or web address], User Resident: CINDI STEPHENSON Electronically Signed by: DANNY QUINTERO @ 06/07/2022 01:11 PM I personally read this/these film(s) with this resident Normal [facility] Comment on above: Order Comment: Evalu ate WRIST LEFT 3 [facility] 2 WRIST LEFT 3 S [facility] Department of Radiology [address] [place] [phone] Patient Name: YASMANIDecember : 1985 Sex: F Age: Race: White Pt. Location: 83 Patient Status: D Ordered Date: 03/28/2022 1:10:00 PM Completed Date: 03/28/2022 01:17 PM Requesting Provider: YAZAN CHANDRA Attending Provider: Report Copy To: Signs & Symptoms: M25.532 Pain in left wrist I10 History: Comments: evaluate Exam: WRIST LEFT 3 [facility] WRIST LEFT 3 [facility] 03/28/2022 1:17 PM CLINICAL INDICATIONS: M25.532 Pain [...] above. Electronically signed: Surinder Ocasio. Transcribed by: [email or web address], User Resident: Electronically Signed by: SURINDER OCASIO @ 03/29/2022 02:02 PM Normal [facility] Comment on above: Order Comment: evalu ate WRIST LEFT 3 [facility] 2 WRIST LEFT 3 [facility] Department of Radiology [address] [place] [phone] Patient Name: YASMANIDecember : 1985 Sex: F Age: Race: White Pt. Location: Patient Status: D Ordered Date: 02/14/2022 10:05:00 AM Completed Date: 02/14/2022 10:09 AM Requesting Provider: YAZAN CHANDRA Attending Provider: YAZAN CHANDRA Report Copy To: Signs & Symptoms: M25.532 Pain in left wrist I10 History: [place] Comments: Evaluate Exam: WRIST LEFT 3 VWS WRIST LEFT 3 S 02/14/2022 10:09 AM CLINICAL INDICATIONS: M25.532 Pain [...] variance. Electronically signed: BEATA PIRES. Transcribed by: [email or web address], User Resident: Electronically Signed by: BEATA PIRES @ 02/15/2022 01:21 PM Normal [facility] Comment on above: Order Comment: Evalu ate Insurance Correspondence Off iceon 02-04-2022 Insurance Correspondence Office [id number] .00CD:127 Normal [facility] Operative Reporton Operative Report [id number] .[id number]:127 Normal [facility] BUNon 01-29-2022 Urea nitrogen [Mass/Vol] 8.0 mg/dL Normal 7.0-18.0 [facility] Comment on above: Performed By: #### B SERAFIN WETZEL #### [facility] [address] [place] [address] [address] Kimberly Saucedo CBC AUTO DIFFon 01-29-2022 BASO # 0.0 103/ul Normal 0.0-0.1 [facility] Comment on above: Performed By: #### C BC #### [facility] [address] [place] [address] Dr. Kimberly Saucedo Basophils/100 WBC (Bld) 0.2 % Normal 0.2-2.0 [facility] Comment on above: Performed By: #### C BC #### [facility] [address] [place] [address] Dr. Kimberly Saucedo EO # 0.0 103/ul Normal 0.0-0.7 [facility] Comment on above: Performed By: #### C BC #### [facility] [address] [place] [address] Dr. Kimberly Saucedo Eosinophils/100 WBC (Bld) 0.2 % Critically low 0.9-7.0 [facility] Comment on above: Performed By: #### C BC #### [facility] [address] [place] [address] Dr. Kimberly Saucedo Erythrocyte distribution width (RBC) [Ratio] 12.8 % Normal 11.0-15.0 [facility] Comment on above: Performed By: #### C BC #### [facility] [address] [place] [address] Dr. Kimberly Saucedo Hematocrit (Bld) [Volume fraction] 36.5 % Normal 36.0-48.0 [facility] Comment on above: Performed By: #### C BC #### [facility] [address] [place] [address] Dr. Kimberly Saucedo Hemoglobin (Bld) [Mass/Vol] 12.1 g/dL Normal 12.0-16.0 [facility] Comment on above: Performed By: #### C BC #### [facility] [address] [place] [address] [address] Kimberly Saucedo IG # 0.06 10e3/ul Critically high 0.00-0.03 [facility] Comment on above: Performed By: #### C BC #### [facility] [address] [place] [address] [address] Kimberly Saucedo IG % 0.5 % Normal 0.0-0.5 [facility] Comment on above: Performed By: #### C BC #### [facility] [address] [place] [address] Dr. Kimberly Saucedo LYMPH # 1.8 103/ul Normal 1.2-3.8 [facility] Comment on above: Performed By: #### C BC #### [facility] [address] [place] [address] Dr. Kimberly Saucedo Lymphocytes/100 WBC (Bld) 14.3 % Critically low 20.5-60.0 [facility] Comment on above: Performed By: #### C BC #### [facility] [address] [place] [address] Dr. Kimberly Saucedo MANUAL DIFF REQ NO Normal [facility] Comment on above: Performed By: #### C BC #### [facility] [address] [place] [address] Dr. Kimberly Saucedo MCH (RBC) [Entitic mass] 30.1 pg Normal 26.7-34.0 [facility] Comment on above: Performed By: #### C BC #### [facility] [address] [place] [address] Dr. Kimberly Saucedo MCHC (RBC) [Mass/Vol] 33.2 g/dL Normal 29.9-35.2 [facility] Comment on above: Performed By: #### C BC #### [facility] [address] [place] [address] Dr. Kimberly Saucedo MCV (RBC) [Entitic vol] 90.8 fL Normal 81.0-99.0 [facility] Comment on above: Performed By: #### C BC #### [facility] [address] [place] [address] [address] Kimberly Saucedo MONO # 0.8 103/ul Normal 0.3-0.8 [facility] Comment on above: Performed By: #### C BC #### [facility] [address] [place] [address] [address] Kimberly Saucedo Monocytes/100 WBC (Bld) 6.3 % Normal 1.7-12.0 [facility] Comment on above: Performed By: #### C BC #### [facility] [address] [place] [address] [address] Kimberly Saucedo NEUT # 9.9 103/ul Critically high 1.4-6.5 [facility] Comment on above: Performed By: #### C BC #### [facility] [address] [place] [address] Dr. Kimberly Saucedo Neutrophils/100 WBC (Bld) 78.5 % Critically high 43.0-75.0 [facility] Comment on above: Performed By: #### C BC #### [facility] [address] [place] [address] Dr. Kimberly Saucedo Platelet mean volume (Bld) [Entitic vol] 9.6 fL Normal 9.5-13.5 [facility] Comment on above: Performed By: #### C BC #### [facility] [address] [place] [address] Dr. Kimberly Saucedo PLT 236 103/ul Normal 150-450 [facility] Comment on above: Performed By: #### C BC #### [facility] [address] [place] [address] [address] Kimberly Saucedo RBC 4.02 106/ul Critically low 4.20-5.40 [facility] Comment on above: Performed By: #### C BC #### [facility] [address] [place] [address] Dr. Kimberly Saucedo WBC 12.5 103/ul Critically high 4.0-11.0 [facility] Comment on above: Performed By: #### C BC #### [facility] [address] [place] [address] Dr. Kimberly Saucedo CREATININEon 01-29-2022 Creatinine [Mass/Vol] 0.69 mg/dL Normal 0.55-1.02 [facility] Comment on above: Performed By: #### B RASHARD, CREA #### [facility] [address] [place] [address] Dr. Kimberly Saucedo EGFR-AF [facility] >60 Normal >=60 [facility] Comment on above: Performed By: #### B RASHARD, CREA #### [facility] [address] [place] [address] Dr. Kimberly Saucedo EGFR-NON AF [facility] >60 Normal >=60 [facility] Comment on above: Performed By: #### B RASHARD, CREA #### [facility] [address] [place] [address] Dr. Kimberly Saucedo CBC AUTO DIFFon 01-28-2022 BASO # 0.0 103/ul Normal 0.0-0.1 [facility] Comment on above: Performed By: #### C BC #### [facility] [address] [place] [address] Dr. Kimberly Saucedo Basophils/100 WBC (Bld) 0.3 % Normal 0.2-2.0 [facility] Comment on above: Performed By: #### C BC #### [facility] [address] [place] [address] Dr. Kimberly Saucedo EO # 0.2 103/ul Normal 0.0-0.7 [facility] Comment on above: Performed By: #### C BC #### [facility] [address] [place] [address] Dr. Kimberly Saucedo Eosinophils/100 WBC (Bld) 1.6 % Normal 0.9-7.0 [facility] Comment on above: Performed By: #### C BC #### [facility] [address] [place] [address] Dr. Kimberly Saucedo Erythrocyte distribution width (RBC) [Ratio] 12.9 % Normal 11.0-15.0 [facility] Comment on above: Performed By: #### C BC #### [facility] [address] [place] [address] Dr. Kimberly Saucedo Hematocrit (Bld) [Volume fraction] 44.3 % Normal 36.0-48.0 [facility] Comment on above: Performed By: #### C BC #### [facility] [address] [place] [address] Dr. Kimberly Saucedo Hemoglobin (Bld) [Mass/Vol] 14.7 g/dL Normal 12.0-16.0 [facility] Comment on above: Performed By: #### C BC #### [facility] [address] [place] [address] Dr. Kimberly Saucedo IG # 0.04 10e3/ul Critically high 0.00-0.03 [facility] Comment on above: Performed By: #### C BC #### [facility] [address] [place] [address] Dr. Kimberly Saucedo IG % 0.4 % Normal 0.0-0.5 [facility] Comment on above: Performed By: #### C BC #### [facility] [address] [place] [address] Dr. Kimberly Saucedo LYMPH # 2.6 103/ul Normal 1.2-3.8 [facility] Comment on above: Performed By: #### C BC #### [facility] [address] [place] [address] Dr. Kimberly Saucedo Lymphocytes/100 WBC (Bld) 24.5 % Normal 20.5-60.0 [facility] Comment on above: Performed By: #### C BC #### [facility] [address] [place] [address] Dr. Kimberly Saucedo MANUAL DIFF REQ NO Normal [facility] Comment on above: Performed By: #### C BC #### [facility] [address] [place] [address] Dr. Kimberly Saucedo MCH (RBC) [Entitic mass] 29.7 pg Normal 26.7-34.0 [facility] Comment on above: Performed By: #### C BC #### [facility] [address] [place] [address] Dr. Kimberly Saucedo MCHC (RBC) [Mass/Vol] 33.2 g/dL Normal 29.9-35.2 [facility] Comment on above: Performed By: #### C BC #### [facility] [address] [address] [address] Kimberly Saucedo MCV (RBC) [Entitic vol] 89.5 fL Normal 81.0-99.0 [facility] Comment on above: Performed By: #### C BC #### [facility] [address] [address] [address] Kimberly Saucedo MONO # 0.6 103/ul Normal 0.3-0.8 [facility] Comment on above: Performed By: #### C BC #### [facility] [address] [place] [address] Dr. Kimberly Saucedo Monocytes/100 WBC (Bld) 5.6 % Normal 1.7-12.0 [facility] Comment on above: Performed By: #### C BC #### [facility] [address] [place] [address] Dr. Kimberly Saucedo NEUT # 7.1 103/ul Critically high 1.4-6.[address] [facility] Comment on above: Performed By: #### C BC #### [facility] [address] [place] [address] Dr. Kimberly Saucedo Neutrophils/100 WBC (Bld) 67.6 % Normal 43.0-75.0 [facility] Comment on above: Performed By: #### C BC #### [facility] [address] [address] [address] Kimberly Saucedo Platelet mean volume (Bld) [Entitic vol] 9.0 fL Critically low 9.5-13.5 [facility] Comment on above: Performed By: #### C BC #### [facility] [address] [place] [address] Dr. Kimberly Saucedo PLT 273 103/ul Normal 150-450 [facility] Comment on above: Performed By: #### C BC #### [facility] [address] [address] [address] Kimberly Saucedo RBC 4.95 106/ul Normal 4.20-5.40 [facility] Comment on above: Performed By: #### C BC #### [facility] [address] [place], [place] [address] Dr. Kimberly Saucedo WBC 10.5 103/ul Normal 4.0-11.0 [facility] Comment on above: Performed By: #### C BC #### [facility] [id number] Kimberly Saucedo Operative Reporton Operative Report MR#: [id number] S [facility] Pt. Name: YasmaniDecember Room #: 0C Discharge Date: Birthdate: 1985 OPERATIVE REPORT DATE OF SURGERY: 01/07/2022 SURGEON: Steve Chandra M.D. ACTUARIAL ANALYST: Dank Gutierres MD PREOPERATIVE DIAGNOSIS: Left wrist [...] P/Dank Gutierres MD Date Trans: 01/08/2022 01:44 A/marc DN_[id number] cc: Durga Watters M.D. [address], [facility] [place] [address] Normal [facility] POC GLUCOSE LABon 01-07-2022 Glucose [Mass/Vol] 111 mg/dL High 70-100 [facility] Comment on above: Performed By: #### 8 5499 #### [address] WRIST LEFT 2 VWSon 2 WRIST LEFT 2 VWS [facility] Department of Radiology [address] [place] [phone] Patient Name: December : 1985 Sex: [...] the lunate Comments: Exam: WRIST LEFT 2 VWS WRIST LEFT 2 [facility] CLINICAL INFORMATION: Intra op c-arm, left radial shortening osteotomy and core decompression of the lunate Dr. Chandra Fluoro Time: 16 sec. C-arm out at 2:30 pm. Intra op c-arm, left radial shortening osteotomy and core decompression of the lunate. IMPRESSION: Intraoperative fluoroscopy provided to the clinical service. 5 images. Fluoroscopy time 16 seconds. Dose 0.32 MGY. Electronically signed: Brady Chaney. Transcribed by: [email or web address], User Resident: Electronically Signed by: BRADY CHANEY @ 01/07/2022 03:17 PM Normal [facility] WRIST LEFT 3 [facility] 2 WRIST LEFT 3 [facility] [place] [facility] Department of Radiology [address] [place] [phone] Patient Name: December : 1985 Sex: F Age: Race: White Pt. 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 Electronically signed: Richard Granados. Transcribed by: [email or web address], User Resident: Electronically Signed by: RICHARD GRANADOS @ 11/17/2021 10:06 AM Normal [facility] Comment on above: Order Comment: Evalu ate Physician Referralon 022 Physician Referral [id number]:127 Normal [facility] WRIST LEFT 3 [facility] 1 WRIST LEFT 3 [facility] [place] [facility] Department of Radiology [address] [place] [phone] Patient Name: YASMANIDecember : 1985 Sex: F Age: Race: White Pt. 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 Electronically signed: Nilsa Bai. Transcribed by: [email or web address], User Resident: Electronically Signed by: NILSA BAI @ 08/17/2021 09:31 PM Normal [facility] Comment on above: Order Comment: Evalu ate Operative Reporton Operative Report MR#: [id number] S [facility] Pt. Name: YasmaniDecember Room #: 0C Discharge Date: Birthdate: 1985 OPERATIVE REPORT DATE OF SURGERY: 06/26/2021 SURGEON: Steve Chandra M.D. ACTUARIAL ANALYST: Pooja Prescott. PREOPERATIVE DIAGNOSIS: Left Kienbock disease, [...] Chandra M.D. Date Trans: 06/26/2021 02:33 P/mmo DN_JN:[id number] cc: Durga Watters M.D. [address] [facility] [address] Normal [facility] POC GLUCOSE LABon 06-26-2021 Glucose [Mass/Vol] 119 mg/dL High 70-100 [facility] Comment on above: Performed By: #### 8 5499 #### [facility] [address] [address], [facility] WRIST LEFT 2 Son 1 WRIST LEFT 2 [facility] [place] [facility] Department of Radiology [address] [place] [phone] Patient Name: YASMANIDecember : 1985 Sex: F Age: Race: White Pt. Location: OUTP Patient Status: Ordered Date: 06/26/2021 7:05:00 AM Completed Date: 06/26/2021 01:50 PM Requesting Provider: YAZAN CHANDRA Attending Provider: YAZAN CHNADRA Report Copy To: Signs & Symptoms: Left wrist core decompression History: Left wrist core decompression Comments: Left wrist core decompression Exam: WRIST LEFT 2 [facility] WRIST LEFT 2 [facility] 06/26/2021 1:50 PM CLINICAL INDICATIONS: Left wrist core decompression TECHNOLOGIST COMMENTS: Dr. Chandra used 9 seconds of fluoro time for a left wrist decompression QUESTION FOR THE RADIOLOGIST: Left wrist core decompression PROTOCOL: AP(PA) and Lateral views were obtained. COMPARISON: None IMPRESSION: Fluoroscopy provided intraoperatively. Seconds of fluoroscopy time was utilized 11 images from fluoroscopic evaluation demonstrate stages of the procedure. Electronically signed: Venkata Rojas. Transcribed by: [email or web address], User Resident: Electronically Signed by: VENKATA ROJAS @ 06/26/2021 06:58 PM Normal [facility] Comment on above: Order Comment: Left wrist core decompression WRIST LEFT 3 [facility] WRIST LEFT 3 [facility] [place] [facility] Department of Radiology [address] [place] [phone] Patient Name: December : 1985 Sex: F Age: Race: White Pt. Location: 83 Patient Status: D Ordered Date: 06/14/2021 2:10:00 PM Completed Date: 06/14/2021 02:14 PM Requesting Provider: YAZAN CHANDRA Attending Provider: Report Copy To: Signs & Symptoms: M25.532 Pain in left wrist I10 History: Comments: evaluate Exam: WRIST LEFT 3 [facility] WRIST LEFT 3 S 06/14/2021 2:14 PM CLINICAL INDICATIONS: M25.532 Pain [...] report. Electronically signed: Bravo Abernathy. Transcribed by: [email or web address], User Resident: BRAVO TURNER Electronically Signed by: BRAVO ABERNATHY @ 06/15/2021 03:28 PM I personally read this/these film(s) with this resident Normal [facility] Comment on above: Order Comment: evalu ate Outside Recordson 02-10-2019 Outside Records [id number] [facility] Encounters Encounter Date Encounter Type Care Provider Facility Start: 02-24-2024 End: 02-24-2024 ambulatory IRON Obi JOSE Not Available Start: 01-01-2024 End: 01-02-2024 ambulatory [facility] Start: 12-24-2023 End: 12-25-2023 ambulatory BETSEY Zuniga [facility] Start: 11-17-2023 End: 11-17-2023 ambulatory IRON Obi JOSE Not Available Start: 09-04-2023 End: 09-04-2023 ambulatory Durga Watters Facility:[facility] Start: 09-04-2023 End: 09-04-2023 ambulatory MD Durga Watters Work Phone: [facility] Work Phone: Start: 09-04-2023 End: 09-04-2023 Patient encounter procedure MD Durga Watters Work Phone: [facility] [place] Work Phone: Start: 06-18-2023 End: 06-18-2023 ambulatory [facility] Start: 05-02-2023 End: 05-02-2023 ambulatory [facility] Start: 04-21-2023 End: 04-21-2023 ambulatory [facility] Start: 04-10-2023 End: 04-11-2023 ambulatory [facility] Start: 2022 End: 11-19-[address] DURGA WATTERS . Facility:[facility] Start: 06-10-2022 End: 06-11-[address] DURGA WATTERS . Facility:[facility] Start: 01-28-2022 End: 01-29-[address] BRIAN ARECHIGA . Facility:[facility] Start: 01-07-2022 End: 01-08-2022 ambulatory DURGA HOY Facility:[facility] Start: 06-26-2021 End: 06-27-2021 ambulatory DURGA HOY Facility:[facility] Procedures Date Procedure Procedure Detail Performing Clinician Start: 06-26-2021 ANESTH LOWER ARM SURGERY DURGA HOY Start: 06-26-2021 TREAT FOREARM BONE LESION ABDULAJESSICA BRUMFIELDAPHA Plan of Treatment Date Care Activity Detail Author Start: 09-04-2023 MR Breast - bilateral F [facility] Start: 09-04-2023 MRI of bilateral norah asts with contrast MR breast BI wo/w con CAD [facility] Payers Date Payer Category Payer Unknown [id number] 2023 Self-pay [id number] 2023 Medicaid [id number] 54 [id number] 2009 Unknown [id number] 1985 Unknown [id number] 2.16.8 [id number] 1985 Unknown [id number] 2.16.8 [id number] 1985 Unknown [id number] 2.16.84 [id number] 1985 Unknown [id number] 2.16.84 [id number] 1985 Unknown [id number] 2.16.84 0.1.272090.3.579.2.593 1985 Unknown [id number] 2.16.8 40.1.211493.3.579.2.1286 1984 Unknown [id number] 2.16.84 0.1.158366.3.579.2.1259 1984 Unknown [id number] 2.16.84 0.1.129860.3.579.2.1259 1984 Unknown [id number] 2.16.84 [id number] 1959 Unknown [id number] 1959 Unknown [id number] Unknown [id number] 2.16.8 [id number] Social History Date Type Detail Facility Start: 07-22-2023 Tobacco smoking stat [facility] Current some day smoker [facility] Start: 1985 Sex Assigned At Female F [facility] Medical Equipment Procedure Code Equipment Code Equipment Original Text Equipment Identifier Dates Reduction of breast with reconstruction BREAST IMPLANT MEDIUM 440CC FDA Start: 01-08-2018 Reconstruction, breast and nipple, TRAM flap, liposuction [id number] 0.8-1.7MM FDA Start: 06-04-2018 Clinical Notes 11-27-2021 to 01-01-2024 Note Date & Type Note Facility 01-01-2024 Note ------ Attestation signed by Keya Chandra MD at 01/06/2024 12:25 PM I personally saw and examined the patient on the same date of service as resident/fellow . I discussed the findings and therapeutic plan with the resident/fellow . I agree with the documentation, except for any edits/updates below. 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 Patient had left wrist osteotomy on 01/07/2022. Patient reports that she has been doing well and has good range of motion in her left wrist. She rates her pain as 2 now as Compared to 7-8 initially. Denies any numbness and tingling. 06/18/23 Bailey Gruber is a 37 y.o. year old cenxn-zqpz-pejpopvw female presenting 7 weeks post debridement left wrist extensor tendon [ECU]. She reports improved ECU pain following surgery, more significant when sharp contact is made over the area. She has a history of left wrist osteotomy 01/07/2022 with radial shortening, lunate core decompression. She is reporting increased wrist pain over the lunate, /10, controlled with tylenol and ibuprofen. She previously discussed proimal row carpectomy, but is not ready to proceed with surgery and has had minimal relief with CSI. 05/02/23 Bailey Gruber is a 38 y.o. 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 ECU synergy test negative We discussed her hand x-rays performed today which showed normal bone density. Assessment/Plan Bailey Gruber is a 38 y.o. year old female with status post debridement left ECU tendon and excision cyst tendon sheath (04/21/2023). She is reporting improved ECU pain and range of motion compared to her preoperative state. Plan: -If concerns arise, please contact clinic Craig Martínez PGY-5, Rheumatology [facility] 06-18-2023 Note ------ Attestation signed by Keya [...] Post-op and Follow-up of the Left Wrist 06/18/23 Bailey Gruber is a 37 y.o. year old vruat-ojgn-zxqdlqua female presenting 7 weeks post debridement left [...] Gruber is a 37 y.o. year old exvwi-thbp-bqonwpxu female presenting 10 days status post debridement [...] months -If concerns arise, please contact clinic Bryn Chaudhari, M3 [facility] [employer] 06/18/23 [facility] 05-02-2023 Note Orthopedic Surgery Subjective Post-op of the Left Wrist Bailey Gruber is a 37 y.o. year old xquzt-nnhb-vbyyaors female presenting 10 days status post debridement [...] 6 weeks to review her functional status. [facility] 04-22-2023 Note No concerns as per c all back guidelines [facility] 04-21-2023 Note Patient: Bailey her Procedure Summary Date: 04/21/23 Room / Location: [facility] OR [address] [place] [address] [facility] OR Anesthesia Start: 957 Anesthesia Stop: 1038 Procedure: wrist Ecu tendon debridement (Left: Wrist) Diagnosis: Left wrist tendonitis Contusion of left wrist, initial encounter (Left wrist tendonitis [M77.8]) (Contusion of left wrist, initial encounter [S60.212A]) Surgeons: Keya Chandra MD Responsible Provider: Karla [...] per anesthesia protocol. No notable events documented. [facility] 04-21-2023 Note Discussed patient's antibiotic allergies with Dr. Misha Banks: Patient has reported allergies to the following medications: Base on cross reactivity of medications, cefazolin should NOT produce a cross-reactivity reaction. Side chains of cefazolin are significantly different from penicillin. Staff will monitor patient closely for any adverse reactions. Junior Perales, FrancoD [facility] 04-21-2023 Note Peripheral Block Patient location during procedure: pre-op Start time: 04/21/2023 9:30 AM End time: 04/21/2023 9:48 AM Reason for block: primary anesthetic Staffing Performed: resident/BEEF PUSHER/CAA Anesthesiologist: Karla Roblero MD Resident/BEEF PUSHER: Nilsa Shaw MD Preanesthetic Checklist Completed: patient [...] rate change: no Slow fractionated injection: yes [facility] 04-21-2023 Note Patient: Bailey her Procedure Information Date/Time: 04/21/23 1020 Procedure: wrist Ecu tendon debridement (Left: Wrist) Location: [facility] OR [address] [place] [address] OR Surgeons: Keya Chandra MD Relevant Problems [...] Plan discussed with attending. Additional Equipment Requests [facility] 04-10-2023 Note ------ Attestation signed by Keya [...] Pain and Follow-up of the Left Wrist 04/10/23December Yasmani is a 37 y.o. female presenting for [...] continue conservative treatment for pain until surgery. Nishnisa Hayes 04/10/23 4:20 PM [facility] 11-19-2022 Note PROCEDURE: XR HIP LT 2 3V W PELVIS HISTORY: Pain of left hip joint , chronic COMPARISON: None. FINDINGS: BONES:No fracture, acute abnormality, or significant arthropathy. SOFT TISSUES:No visible soft tissue swelling. EFFUSION:None visible. OTHER: Negative. IMPRESSION: 1. Normal appearance of left hip. Electronically authenticated by: GIANNI MORELAND Date: 2022-11-19 11:14 [facility] 06-10-2022 Note PROCEDURE: XR ANKLE RT MIN 3 VIEWS HISTORY: Pain of right ankle joint ; posterior ankle pain after falling COMPARISON: None. FINDINGS: BONES:No fracture, acute abnormality, or significant arthropathy. SOFT TISSUES:Lateral soft tissue swelling. EFFUSION:None visible. OTHER: Negative. IMPRESSION: 1. Moderate swelling suggesting soft tissue injury. 2. No acute bone abnormality. Electronically authenticated by: GIANNI MORELAND Date: 2022-06-10 12:52 [facility] 01-28-2022 Note DISCHARGE SUMMARY DISCHARGE DATE: [...] pain free and no longer on narcotics. [facility] Signed and Approved by: DR BRIAN ARECHIGA . 02/14/2022 21:23:00 [facility] 01-28-2022 Note The [place], [place] NAME: YASMANI December DATE OF : MEDICAL REC#: [id number] MAPLE SYRUP MAKER: [id number]ARSEN, TRANSADMIT DATE: 01/28/2022 06:08:00 SHAKER TENDER DATE: 01/28/2022 23:00 DICTATING PHYSICIAN: BRIAN ARECHIGA DICTATION DATE: 01/28/2022 09:00 OPERATIVE NOTE OPERATION DATE: 01/28/2022 PREOPERATIVE DIAGNOSIS: Pelvic pain, left ovarian cyst. POSTOPERATIVE DIAGNOSIS: Pelvic pain, left ovarian cyst. PROCEDURE: Diagnostic laparoscopy which was then converted to an exploratory laparotomy. ANESTHESIA: General. SURGEON: Brian Arechiga D.O. ACTUARIAL ANALYST: CUBA Hough URINE OUTPUT: Yellow and clear. [...] stable condition. Electronically Authenticated and Edited by: Brian Arechiga DO on 02/12/2022 09:11 AM EDT IFC Signed and Approved by: DR BRIAN ARECHIGA . 02/12/2022 09:11:00 [facility] 11-27-2021 Note [id number]#[id number]:127 [facility] Evaluation note No assessment information availa [facility] Work Phone: Summary Purpose Family History [...] section and content) DATE CREATED AUTHOR 02/20/2019 [facility] DATE CREATED AUTHOR AUTHOR'S ORGANIZ ATION [facility]/2022 [facility] DATE CREATED AUTHOR AUTHOR'S ORGANIZ ATION 06/08/2022 [facility] DATE CREATED AUTHOR AUTHOR'S ORGANIZ ATION 01/25/2023 [facility] DATE CREATED AUTHOR AUTHOR'S ORGANIZ ATION 09/12/2023 [facility] DATE CREATED AUTHOR AUTHOR'S ORGANIZ ATION 12/25/2023 [facility] DATE CREATED AUTHOR AUTHOR'S ORGANIZ ATION 01/07/2024 [facility] DATE CREATED AUTHOR AUTHOR'S ORGANIZ ATION 02/25/2024 [facility] EPIC Care Teams (unrecognized sec tion and content) Team Status: Active Member Role Status Dates Durga Watters MD Primary Care Provider Active Team Status: Inactive Member Role Status Dates Durga Watters MD Primary Care Provider Active Brian Arechiga Attending Provider Active Goals (unrecognized section [...] BE BASED ON THE PRIMARY CLINICAL RECORDS. [facility] [employer] provides no warranty or guarantee of the accuracy or completeness of information in this document.
[2024-08-03 09:11] LABS: Age Gdln ACOG Testing Note (.); HPV Aptima Negative (Negative); IGP, Aptima HPV, rfx 16/18,45 Note (.)
== END 2024-07-26 21:40 | disposition home or self-care (01) ==
LOC: LAB 21:39
PROVIDERS: PCP Family Medicine; Visit Provider Obstetrics & Gynecology
DX: Z01.419 Encounter for gynecological examination (general) (routine) without abnormal findings (principal)
CPT/HCPCS: 87624; 88175

== ENCOUNTER 2024-08-10 08:47 | Outpatient (OUT) | payer BC, SELFPAY ==
--- NOTE | 2024-08-10 08:53 | MM_ITS ---
Patient Name: JOANN JUNE MR#: [id number] : 1985 Exam Date: 08/10/2024 Ordering Doctor: DR Brian Arechiga . RADIOLOGY REPORT PROCEDURE: MM TOMOSYNTHESIS DIAGNOSTIC RT, 08/10/2024, 08:56 US BREAST RT LIMITED, 08/10/2024, 09:21 COMPARISON: MG MAMM RT DIAG W CAD, 09/17/2019. INDICATIONS: Breast Lump Right Side 9 O'Clock Position Calculator Name NCI Breast Cancer Risk Assessment Tool 5 Year Breast Cancer Risk n/a% Lifetime Breast Cancer Risk n/a% Personal Breast Cancer Yes, left breast phylloides tumor Personal Ovarian Cancer No Treatments mastectomy, Family Cancers Father with brain cancer at age 28. LOCATION: [facility] BREAST COMPOSITION: There are scattered areas of fibroglandular density. FINDINGS: DIAGNOSTIC CATEGORY 2--BENIGN FINDING. NO CHANGE FROM COMPARISON. Scattered benign-appearing nodules are present. Scattered benign-appearing calcifications are present. Scattered benign-appearing lymph nodes are present. Stable asymmetric density upper outer quadrant, Ultrasound demonstrates corresponding hyperechoic tissue. Findings likely represent postsurgical change from reduction mammoplasty and are stable from prior exam. RECOMMENDATIONS: ROUTINE MAMMOGRAM AND CLINICAL EVALUATION IN 12 MONTHS. PLEASE NOTE: A NORMAL MAMMOGRAM DOES NOT EXCLUDE THE POSSIBILITY OF BREAST CANCER. A CLINICALLY SUSPICIOUS PALPABLE LUMP SHOULD BE BIOPSIED. Dictated by: Matt Lima MD on 08/10/2024 at 09:41 Approved by: Matt Lima MD on 08/10/2024 at 09:44
--- OUTSIDE RECORDS SUMMARY | 2024-08-10 09:06 | XMS_ITS | CCD ---
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 Name Role Phone DURGA WATTERS Primary Care Unavailable DURGA WATTERS Referring Unavailable MACARIO, ABDULAZIM Surgeon Unavailable MACARIO, ABDULAZIM Attending Unavailable MACARIO, ABDULAZIM Admitting Unavailable SC Procedure Practitioner Unavailab le DURGA WATTERS Primary Care Unavailable DURGA WATTERS Referring Unavailable MACARIO, ABDULAZIM Admitting Unavailable MACARIO, ABDULAZIM Attending Unavailable GENI ., DR SULLIVAN Attending Unavailable GENI ., DR SULLIVAN Admitting Unavailable HOY ., DR CALIXTO Primary Care Unavailable PENA ., DR PRICE Consulting Unavailable GENI ., DR SULLIVAN Consulting Unavailable AGUBOSIM, KEVAN Consulting Unavailable CHIQUIS MORLEY Consulting Unavailable JUAQUIN VERGARA Consulting Unavailable HOY ., DR CALIXTO Admitting Unavailable HOY ., DR CALIXTO Attending Unavailable HOY ., DR CALIXTO Consulting Unavailable LOSY ., DR CALIXTO Primary Care Unavailable ANICETO, DR GIANNI Sanders Consulting Unavailable HOY ., DR CALIXTO Admitting Unavailable HOY ., DR CALIXTO Attending Unavailable HOY ., DR CALIXTO Consulting Unavailable HOY ., DR CALIXTO Primary Care Unavailable ZIKENROY, DR GIANNI Sanders Consulting Unavailable MD Durga Watters Primary Care Provider Brian Arechiga Attending Provider [phone] Durga Watters Primary Care Unavailable Brian Arechiga Attending Unavailable Brian Arechiga Admitting Unavailable BETSEY SMITH Referring Unavailable DURGA WATTERS Primary Care Unavailable MACARIO, KEYA Attending Unavailable MACARIO, KEYA Referring Unavailable MACARIO, KEYA Referring Unavailable MACARIO, KEYA Admitting Unavailable MACARIO, KEYA Attending Unavailable MACARIO, KEYA Attending Unavailable MACARIO, KEYA Attending Unavailable MACARIO, KEYA Attending Unavailable Durga Watters MD Primary Care Provider IRON GARCIA Attending Unavailable IRON GARCIA Referring Unavailable IRON GARCIA Attending Unavailable BRIAN ARECHIGA Attending Unavailable Allergies Allergy Classification Reported Allergen(s) Allergy Type Date of Onset Reaction(s) Facility (3 sources) Amoxicillin; Translations: [AMOXICILLIN] Drug Allergy 01-10-20 17 Blister [facility] Repository (5 sources) Clindamycin; Translations: [CLINDAMYCIN] Drug Allergy 11-18-19 17 Blister [facility] Repository (5 sources) Codeine; Translations: [CODEINE] Drug Allergy 09-29-19 17 Blister [facility] Repository (5 sources) Doxycycline; Translations: [DOXYCYCLINE] Drug Allergy 11-18-19 17 Blister [facility] Repository (2 sources) Meperidine Drug Allergy 09-29-19 17 [facility] Repository (1 source) Sulfamethoxazole / Trimethoprim Drug Allergy 06-26-20 21 [facility] Repository (4 sources) Sulfonamides (Antibiotic); Translations: [SULFA (SULFONAMIDE ANTIBIOTICS)] Drug allergy (disorder) 09-29-19 17 [facility] Repository (1 source) Acetaminophen / HYDROcodone Drug Allergy 09-29-19 17 The [facility] Repository (1 source) Amoxicillin Drug Allergy 09-29-19 17 [facility] (1 source) Desonide Drug Allergy 09-29-19 17 [facility] (2 sources) Acetaminophen; Translations: [acetaminophen] Drug Allergy 01-08-20 [address] [facility] (2 sources) Adhesive agent; Translations: [adhesive] Allergy to substance 01-09-[address] [facility] (4 sources) HYDROcodone; Translations: [hydrocodone] Drug Allergy 01-09-20 18 Hives, [facility] (6 sources) Meperidine; Translations: [meperidine] Drug Allergy 01-02-20 17 Hives, [facility] (2 sources) sulfADIAZINE; Translations: [sulfadiazine] Drug Allergy 01-09-20 [address] [facility] (1 source) Amoxicillin Drug Allergy 01-09-[address] [facility] Repository (1 source) Clindamycin Drug Allergy 01-09-[address] [facility] Repository (1 source) Codeine Drug Allergy 01-09-[address] [facility] Repository (1 source) Doxycycline Drug Allergy 01-09-[address] [facility] Repository (4 sources) Acetaminophen / HYDROcodone; Translations: [HYDROCODONE-ACETAM INOPHEN] Drug Allergy 01-02-20 Hives [facility] Repository (4 sources) Penicillins; Translations: [PENICILLINS] Propensity to adverse reactions to drug (disorder) 01-02-20 Unknown [facility] Repository (3 sources) Sulfamethoxazole / Trimethoprim; Translations: [SULFAMETHOXAZOLE-T RIMETHOPRIM] Drug Allergy 04-10-20 23 Other [facility] Repository (2 sources) Clindamycin Drug Allergy 01-10-20 17 Other, Rash [facility] Work Phone: (2 sources) Codeine Drug Allergy 01-02-20 17 Unknown, Other, Shortness of breath [facility] (2 sources) Doxycycline Drug Allergy 01-10-20 17 Unknown [facility] (2 sources) Meperidine Drug Allergy 07-22-20 23 Hives [facility] Healthcare (2 sources) Sulfonamides (Antibiotic) Drug Allergy 01-02-20 17 Other, Unknown [facility] (2 sources) Trimethoprim Drug Allergy 07-22-20 23 Unknown [facility] Healthcare Medications Current Medications Medication Drug Class(es) Dates Sig (Normalized) Sig (Original) fluconazole 150 mg oral tablet (1 source) Azole Antifungal Start: 3 fluconazole (Diflucan) 150 MG tablet Indications: Yeast infection Take 1 tablet PO and then take second dose 3 days later if symptoms persist. 2 tablet 1 09/24/2023 Active 24 hr metFORMIN hydrochloride 500 mg extended release oral tablet (2 sources) Biguanide Start: 3 take 1 tablet by mouth every twenty-four hours in the morning metFORMIN XR (Glucophage-XR) 500 MG 24 hr tablet Take 500 mg by mouth in the morning and at noon. 07/06/2023 Active methylPREDNISolone (1 source) Corticosteroid Start: methylPREDNISolone (Medrol Dospak) 4 MG tablets Indications: Sprain of deltoid ligament of left ankle, initial encounter Take as directed on package. 21 tablet 11/17/2023 Active Ozempic, 0.25 or 0.5 MG/DOSE, 2 MG/3ML solution pen-injector (1 source) inject 0.25 mg by subcutaneous injection every week Ozempic, 0.25 or 0.5 MG/DOSE, 2 MG/3ML solution pen-injector Inject 0.25mg Subcutaneous once weekly 28 days Active SITagliptin 100 mg oral tablet (1 source) Dipeptidyl Peptidase 4 Inhibitor take 5 tablets by mouth in the morning SITagliptin (Januvia) 100 MG tablet Take 500 mg by mouth in the morning. 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 [facility] Comment on above: TESTS RESULT FLAG UN ITS REF RANGE LAB Clinician Provided Cytology Information Source.............Vagina No. of containers..01 ThinPrep Vial Age Yasemino ACOG Ora... FLAG LEGEND: L-Low Normal,H-High Normal,LL-Alert Low,HH-Alert High <-Panic Low,>-Panic High,A-Abnormal,AA-Critical Abnormal Performed at: 01 =G [address] [address] Janet Vizcarra MD, HPV APTIMA Negative Negative [facility] Comment on above: This nucleic acid am plification test detects fourteen high- risk HPV types (16,18,31,33,35,39,45,51,52,56,58,59,66,68) without differentiation. Performed at: =G - [facility] [id number] Customer Success Manager: Janet Vizcarra MD, Phone: [phone] Performed at: - [address] [id number] Customer Success Manager: Janet Vizcarra MD, Phone: [phone] IGP, APTIMA HPV, RFX 16/18,45 Note . [facility] Comment on above: TESTS RESULT FLAG U NITS REF RANGE LAB DIAGNOSIS: 02 NEGATIVE FOR INTRAEPITHELIAL LESION OR MALIGNANCY. Specimen adequacy: 02 Satisfactory for evaluation. Performed by: 02 Funmilayo Shelton, Attractions Associate ([facility]) . 02 Note: Note 02 The Pap smear is a screening test designed to aid in the detection of premalignant and malignant conditions of the uterine cervix. It is not a diagnostic procedure and should not be used as the sole means of detecting cervical cancer. Both false-positive and false-negative reports do occur. Test Methodology: Note 02 This liquid based ThinPrep(R) pap test was screened with the use of an image guided system. HPV Genotype Reflex Note 02 Criteria not met, HPV Genotype not performed. FLAG LEGEND: L-Low Normal,H-High Normal,LL-Alert Low,HH-Alert High <-Panic Low,>-Panic High,A-Abnormal,AA-Critical Abnormal Performed at: 02 WB [facility] [address] [place] [address] Janet Vizcarra MD, SP[facility] Follow-Upon 01-01-2024 Follow-Up [id number] Yasmani,1985 F Date Provider Department Center 01/01/2024 CORY FUNES ORTHO MPORTHO No family history on file Level of Service:72982 [place] OFFICE/OUTPATIENT ESTABLISHED LOW MDM 20 MIN Reason for Visit and Comments: Follow-up [830140] Pain [136] Normal [facility] MR breast BI wo/w con CADon 09-05-2023 MR breast BI wo/w con CAD [facility] [place] [address] [place] [address] MRI Report Signed Patient: Bailey Gruber MR#: [id number] : 1985 Acct:[id number] Age/Sex: 37 / F ADM Date: 09/04/23 Loc: MR Room: Type: [facility] Attending Dr: Brian Arechiga Copies to: Brian [...] All imaged data was reviewed using the [employer] system. The postcontrast images were subtracted and [...] Ziegler Jr., D.ORoney09/05/2023 12:15 PM Dictation Location: [place] [address] Transcribed By: PWS 09/05/23 1215 Dictated By: Andrew Ziegler Jr, DO 09/05/23 1209 Signed By: 09/05/23 1215 [facility] Telephoneon 07-14-2023 Telephone [id number] [facility],1985 F Date Provider Department [place] 07/14/2023 Theodora-PATRICA ROOT MP ORTHO MPORTHO No family history on file [facility] Follow-Upon 06-18-2023 Follow-Up [id number] [facility],1985 F Date Provider Department [place] 06/18/2023 Kelly-MACARIOCORY GALARZA ORTHO MPORTHO No family history on file Level of Service:16054 SC POSTOP FOLLOW UP VISIT RELATED TO ORIGINAL PX Reason for Visit and Comments: Post-op [483] Follow-up [716872] [facility] Office Visiton 05-02-2023 Follow-up visit [id number] [facility],1985 F Date Provider Department [place] 05/02/2023 Kelly-CORY CHANDRA ORTHO MPORTHO No family history on file Level of Service:83382 SC POSTOP FOLLOW UP VISIT RELATED TO ORIGINAL PX Reason for Visit and Comments: Post-op [483] Normal [facility] HISTOLOGY - TISSUE EXAMon LAB AP CASE REPORT Normal [facility] Comment on above: Order Comment: Pre-o p diagnosis:Left wrist tendonitis [M77.8]Contusion of left wrist, initial encounter [S60.212A] Result Comment: Surg ical Pathology Case: [id number] Authorizing Provider: Keya Chandra MD Collected: 04/21/2023 1015 Ordering Location: [facility] Received: 04/21/2023 1130 [facility] [place] Pathologist: Shelli Miranda MD Specimen: Wrist, TENOSYNOVIUM OF LEFT EXTENSOR TENDON Performed By: #### L [id number] ####[facility] (BEAKER)[address] [place] [address] LAB AP CLINICAL INFORMATION Normal [facility] Comment on above: Order Comment: Pre-o p diagnosis:Left wrist tendonitis [M77.8]Contusion of left wrist, initial encounter [S60] Result Comment: Post -Op Diagnoses M77.8 - Left wrist tendonitis [ICD-10-CM] S60.212A - Contusion of left wrist, initial encounter [ICD-10-CM] Performed By: #### L [id number] ####[facility] ([facility] [place] [address] LAB AP GROSS DESCRIPTION A. Wrist. Normal [facility] Comment on above: Order Comment: Pre-o p diagnosis:Left wrist tendonitis [M77.8]Contusion of left wrist, initial encounter [S6] Result Comment: Rece ived in formalin in a container labeled Bailey Yasmani, TENOSYNOVIUM OF LEFT EXTENSOR TENDON . The specimen consists of one soft white-tobin tissue measuring 1.0 x 0.3 x 0.2 cm. The entire specimen is submitted in 1 cassette. Lebron Cabezas, PGY1 Performed By: #### L [id number] ####[facility] ([facility])[address] [place] [address] LAB AP MICROSCOPIC DESCRIPTION Microscopic examination performed. Normal [facility] Comment on above: Order Comment: Pre-o p diagnosis:Left wrist tendonitis [M77.8]Contusion of left wrist, initial encounter [S60A] Performed By: #### L [id number] ####[facility] (Octavian)[address] [place] [address] LAB AP REPORT FINAL DIAGNOSIS NARRATIVE [facility] Comment on above: Order Comment: Pre-o p diagnosis:Left wrist tendonitis [M77.8]Contusion of left wrist, initial encounter [S6] Result Comment: A. T enosynovium, extensor tendon of left wrist, excision: - Benign synovial tissue, consistent with procedure. - No malignancy identified. Performed By: #### L [id number] ####[facility] ([facility])[address] [place] [address] HPon 04-21-2023 H&P reviewed. The patient was examined and there are no changes to the H&P. Normal [facility] OPNOTEon 04-21-2023 OPNOTE wrist Ecu tendon debridement (L) Operative Note Date: 04/21/2023 Location: [facility] OR Name: Bailey Gruber : 1985, Diagnosis Pre-op Diagnosis * Left wrist tendonitis [M77.8] * Contusion of left wrist, initial encounter [S60.A] Post-op Diagnosis * Left wrist tendonitis [M77.8] * Contusion of left wrist, initial encounter [S60.A] Procedures wrist Ecu tendon debridement 55610 - SC DEBRIDEMENT BONE MUSCLE &/FASCIA 20 SQ CM/< Excision cyst tendon sheath left wrist Surgeons * Keya Macario - Primary Procedure Summary Anesthesia: Monitor Anesthesia Care ASA: III Estimated Blood Loss: 10 mL Specimens ID Source Type Tests Collected By Collected At Frozen? Priority Lab ID A Wrist Tissue HISTOLOGY - TISSUE EXAM Keya Chandra MD 04/21/23 1015 No Routine [id number] Description: TENOSYNOVIUM OF LEFT EXTENSOR TENDON Staff: Tare Weigher: Malu Pham RN Scrub Person: Radha Doshi CST Indications: Bailey Gruber is an 37 y.o. [...] hemodynamically stable. Condition: stable Keya Chandra Normal [facility] POCT GLUCOSE METER UNSOLICIT ED RESULTSon 04-21-2023 Glucose [Mass/Vol] 172 mg/dL High 70-105 [facility] Comment on above: Order Comment: Waive d Testing in the ED is performed under the ED CLIA certificate #[id number]. Result Comment: [facility] eman Performed By: #### L [id number] ####[facility] (BEAKER)[address] [place] [address] Follow-Upon 04-10-2023 Follow-Up [id number] Yasmani,1985 F Date Provider Department Center 04/10/2023 CORY FUNESRTLOS No family history on file Level of Service:01332 SC OFFICE/OUTPATIENT ESTABLISHED LOW MDM 20-29 MIN Reason for Visit and Comments: Pain [136] Follow-up [716227] Normal [facility] HPon 04-10-2023 HP -- Attestation signed by Keya Chandra MD at [...] surgery. Nish Hayes 04/10/23 4:20 PM Normal [facility] WRIST LEFT 3 [facility] 2 WRIST LEFT 3 S [facility] Department of Radiology [address] [place] [phone] ======== Patient Name: YASMANI DECEMBER : 1985 Sex: F Age: Race: White Pt. Location: Patient Status: Ordered Date: 06/07/2022 8:45:00 AM Completed Date: 06/07/2022 11:14 AM Requesting Provider: YAZAN CHANDRA Attending Provider: Report Copy To: Signs & Symptoms: M25.532 Pain in left wrist I10 History: Joyce Comments: Evaluate Exam: WRIST LEFT 3 [facility] ======== WRIST LEFT 3 S 06/07/2022 11:14 AM [...] report. Electronically signed: Danny Quintero. Transcribed by: [email or web address], User Resident: CINDI STEPHENSON Electronically Signed by: DANNY QUINTERO @ 06/07/2022 01:11 PM I personally read this/these film(s) with this resident Normal [facility] Comment on above: Order Comment: Evalu ate WRIST LEFT 3 [facility] 2 WRIST LEFT 3 [facility] Department of Radiology [address] [place] [phone] ======== Patient Name: YASMANIDecember : 1985 Sex: F Age: Race: White Pt. Location: 83 Patient Status: D Ordered Date: 03/28/2022 1:10:00 PM Completed Date: 03/28/2022 01:17 PM Requesting Provider: YAZAN CHANDRA Attending Provider: Report Copy To: Signs & Symptoms: M25.532 Pain in left wrist I10 History: Comments: evaluate Exam: WRIST LEFT 3 [facility] ======== WRIST LEFT 3 [facility] 03/28/2022 1:17 PM CLINICAL INDICATIONS: M25.532 Pain [...] above. Electronically signed: Surinder Ocasio. Transcribed by: [email or web address], User Resident: Electronically Signed by: SURINDER OCASIO @ 03/29/2022 02:02 PM Normal [facility] Comment on above: Order Comment: evalu ate WRIST LEFT 3 [facility] 2 WRIST LEFT 3 [facility] Department of Radiology [address] [place] [phone] ======== Patient Name: YASMANIDecember : 1985 Sex: F Age: Race: White Pt. Location: 83 Patient Status: D Ordered Date: 02/14/2022 10:05:00 AM Completed Date: 02/14/2022 10:09 AM Requesting Provider: YAZAN CHANDRA Attending Provider: YAZAN CHANDRA Report Copy To: Signs & Symptoms: M25.532 Pain in left wrist I10 History: Sears Comments: Evaluate Exam: WRIST LEFT 3 [facility] ======== WRIST LEFT 3 [facility] 02/14/2022 10:09 AM [...] variance. Electronically signed: BEATA PIRES. Transcribed by: [email or web address], User Resident: Electronically Signed by: BEATA PIRES @ 02/15/2022 01:21 PM Normal [facility] Comment on above: Order Comment: Evalu ate BUNon 01-29-2022 Urea nitrogen [Mass/Vol] 8.0 mg/dL Normal 7.0-18.0 [facility] Comment on above: Performed By: #### B RASHARD CREDanna #### [facility] [address] [place] [address] Dr. Kimberly Saucedo CBC AUTO DIFFon 01-29-2022 BASO # 0.0 103/ul Normal 0.0-0.1 [facility] Comment on above: Performed By: #### C BC #### [facility] [address] [place] [address] Dr. Kimberly Saucedo Basophils/100 WBC (Bld) 0.2 % Normal 0.2-2.0 [facility] Comment on above: Performed By: #### C BC #### [facility] [address] [place] [address] Dr. Kimberly Saucedo EO # 0.0 103/ul Normal 0.0-0.7 [facility] Comment on above: Performed By: #### C BC #### [facility] [address] [place] [address] Dr. Kimberly Saucedo Eosinophils/100 WBC (Bld) 0.2 % Critically low 0.9-7.0 [facility] Comment on above: Performed By: #### C BC #### [facility] [address] [place] [address] Dr. Kimberly Saucedo Erythrocyte distribution width (RBC) [Ratio] 12.8 % Normal 11.0-15.0 [facility] Comment on above: Performed By: #### C BC #### [facility] [address] [place] [address] Dr. Kimberly Saucedo Hematocrit (Bld) [Volume fraction] 36.5 % Normal 36.0-48.0 [facility] Comment on above: Performed By: #### C BC #### [facility] [address] [place] [address] Dr. Kimberly Saucedo Hemoglobin (Bld) [Mass/Vol] 12.1 g/dL Normal 12.0-16.0 [facility] Comment on above: Performed By: #### C BC #### [facility] [address] [place] [address] Dr. Kimberly Saucedo IG # 0.06 10e3/ul Critically high 0.00-0.03 [facility] Comment on above: Performed By: #### C BC #### [facility] [address] [place] [address] Dr. Kimberly Saucedo IG % 0.5 % Normal 0.0-0.5 [facility] Comment on above: Performed By: #### C BC #### [facility] [address] [place] [address] Dr. Kimberly Saucedo LYMPH # 1.8 103/ul Normal 1.2-3.8 [facility] Comment on above: Performed By: #### C BC #### [facility] [address] [place] [address] Dr. Kimberly Saucedo Lymphocytes/100 WBC (Bld) 14.3 % Critically low 20.5-60.0 [facility] Comment on above: Performed By: #### C BC #### [facility] [address] [place] [address] Dr. Kimberly Saucedo MANUAL DIFF REQ NO Normal [facility] Comment on above: Performed By: #### C BC #### [facility] [address] [place] [address] Dr. Kimberly Saucedo MCH (RBC) [Entitic mass] 30.1 pg Normal 26.7-34.0 [facility] Comment on above: Performed By: #### C BC #### [facility] [address] [place] [address] Dr. Kimberly Saucedo MCHC (RBC) [Mass/Vol] 33.2 g/dL Normal 29.9-35.2 [facility] Comment on above: Performed By: #### C BC #### [facility] [address] [place] [address] Dr. Kimberly Saucedo MCV (RBC) [Entitic vol] 90.8 fL Normal 81.0-99.0 [facility] Comment on above: Performed By: #### C BC #### [facility] [address] [place] [address] Dr. Kimberly Saucedo MONO # 0.8 103/ul Normal 0.3-0.8 [facility] Comment on above: Performed By: #### C BC #### [facility] [address] [place] [address] Dr. Kimberly Saucedo Monocytes/100 WBC (Bld) 6.3 % Normal 1.7-12.0 [facility] Comment on above: Performed By: #### C BC #### [facility] [address] [place] [address] [address] Kimberly Saucedo NEUT # 9.9 103/ul Critically high 1.4-6.5 [facility] Comment on above: Performed By: #### C BC #### [facility] [address] [place] [address] Dr. Kimberly Saucedo Neutrophils/100 WBC (Bld) 78.5 % Critically high 43.0-75.0 [facility] Comment on above: Performed By: #### C BC #### [facility] [address] [place] [address] Dr. Kimberly Saucedo Platelet mean volume (Bld) [Entitic vol] 9.6 fL Normal 9.5-13.5 [facility] Comment on above: Performed By: #### C BC #### [facility] [address] [place] [address] Dr. Kimberly Saucedo PLT 236 103/ul Normal 150-450 [facility] Comment on above: Performed By: #### C BC #### [facility] [address] [place] [address] Dr. Kimberly Saucedo RBC 4.02 106/ul Critically low 4.20-5.40 [facility] Comment on above: Performed By: #### C BC #### [facility] [address] [place] [address] Dr. Kimberly Saucedo WBC 12.5 103/ul Critically high 4.0-11.0 [facility] Comment on above: Performed By: #### C BC #### [facility] [address] [place] [address] Dr. Kimberly Saucedo CREATININEon 01-29-2022 Creatinine [Mass/Vol] 0.69 mg/dL Normal 0.55-1.02 [facility] Comment on above: Performed By: #### B UN, CREA #### [facility] [address] [place] [address] Dr. Kimberly Saucedo EGFR-AF BELGIAN >60 Normal >=60 The [facility] Comment on above: Performed By: #### B UN, CREA #### [facility] [address] [place] [address] Dr. Kimberly Saucedo EGFR-NON AF BELGIAN >60 Normal >=60 [facility] Comment on above: Performed By: #### B UN, CREA #### [facility] [address] [place] [address] Dr. Kimberly Saucedo CBC AUTO DIFFon 01-28-2022 BASO # 0.0 103/ul Normal 0.0-0.1 [facility] Comment on above: Performed By: #### C BC #### [facility] [address] [place] [address] Dr. Kimberly Saucedo Basophils/100 WBC (Bld) 0.3 % Normal 0.2-2.0 [facility] Comment on above: Performed By: #### C BC #### [facility] [address] [place] [address] Dr. Kimberly Saucedo EO # 0.2 103/ul Normal 0.0-0.7 [facility] Comment on above: Performed By: #### C BC #### [facility] [address] [place] [address] Dr. Kimberly Saucedo Eosinophils/100 WBC (Bld) 1.6 % Normal 0.9-7.0 [facility] Comment on above: Performed By: #### C BC #### [facility] [address] [place] [address] Dr. Kimberly Saucedo Erythrocyte distribution width (RBC) [Ratio] 12.9 % Normal 11.0-15.0 [facility] Comment on above: Performed By: #### C BC #### [facility] [address] [place] [address] Dr. Kimberly Saucedo Hematocrit (Bld) [Volume fraction] 44.3 % Normal 36.0-48.0 [facility] Comment on above: Performed By: #### C BC #### [facility] [address] [place] [address] Dr. Kimberly Saucedo Hemoglobin (Bld) [Mass/Vol] 14.7 g/dL Normal 12.0-16.0 [facility] Comment on above: Performed By: #### C BC #### [facility] [address] [place] [address] Dr. Kimberly Saucedo IG # 0.04 10e3/ul Critically high 0.00-0.03 [facility] Comment on above: Performed By: #### C BC #### [facility] [address] [place] [address] Dr. Kimberly Saucedo IG % 0.4 % Normal 0.0-0.5 [facility] Comment on above: Performed By: #### C BC #### [facility] [address] [place] [address] Dr. Kimberly Saucedo LYMPH # 2.6 103/ul Normal 1.2-3.8 [facility] Comment on above: Performed By: #### C BC #### [facility] [address] [place] [address] Dr. Kimberly Saucedo Lymphocytes/100 WBC (Bld) 24.5 % Normal 20.5-60.0 [facility] Comment on above: Performed By: #### C BC #### [facility] [address] [place] [address] Dr. Kimberly Saucedo MANUAL DIFF REQ NO Normal [facility] Comment on above: Performed By: #### C BC #### [facility] [address] [place] [address] Dr. Kimberly Saucedo MCH (RBC) [Entitic mass] 29.7 pg Normal 26.7-34.0 [facility] Comment on above: Performed By: #### C BC #### [facility] [address] [place] [address] Dr. Kimberly Saucedo MCHC (RBC) [Mass/Vol] 33.2 g/dL Normal 29.9-35.2 [facility] Comment on above: Performed By: #### C BC #### [facility] [address] [place] [address] Dr. Kimberly Saucedo MCV (RBC) [Entitic vol] 89.5 fL Normal 81.0-99.0 [facility] Comment on above: Performed By: #### C BC #### [facility] [address] [place] [address] Dr. Kimberly Saucedo MONO # 0.6 103/ul Normal 0.3-0.8 [facility] Comment on above: Performed By: #### C BC #### [facility] [address] [place] [address] Dr. Kimberly Saucedo Monocytes/100 WBC (Bld) 5.6 % Normal 1.7-12.0 [facility] Comment on above: Performed By: #### C BC #### [facility] [address] [place] [address] Dr. Kimberly Saucedo NEUT # 7.1 103/ul Critically high 1.4-6.5 [facility] Comment on above: Performed By: #### C BC #### [facility] [address] [place] [address] Dr. Kimberly Saucedo Neutrophils/100 WBC (Bld) 67.6 % Normal 43.0-75.0 [facility] Comment on above: Performed By: #### C BC #### [facility] [address] [place] [address] Dr. Kimberly Saucedo Platelet mean volume (Bld) [Entitic vol] 9.0 fL Critically low 9.5-13.5 [facility] Comment on above: Performed By: #### C BC #### [facility] [address] [place] [address] Dr. Kimberly Saucedo PLT 273 103/ul Normal 150-450 [facility] Comment on above: Performed By: #### C BC #### [facility] [address] [place] [address] Dr. Kimberly Saucedo RBC 4.95 106/ul Normal 4.20-5.40 [facility] Comment on above: Performed By: #### C BC #### [facility] [address] [place] [address] Dr. Kimberly Saucedo WBC 10.5 103/ul Normal 4.0-11.0 [facility] Comment on above: Performed By: #### C BC #### [facility] [address] [place] [address] Dr. Kimberly Saucedo Operative Reporton 2 Operative Report MR#: [id number] S [facility] Pt. Name: Bailey Gruber Room #: 0C Discharge Date: Birthdate: 1985 OPERATIVE REPORT DATE OF SURGERY: 01/07/2022 SURGEON: Steve Chandra M.D. TELECOMMUNICATIONS LINE MECHANIC: Dank Gutierres MD PREOPERATIVE DIAGNOSIS: Left wrist [...] Gutierres MD Date Trans: 01/08/2022 01:44 A/marc [id number] cc: Durga Watters M.D. [address] [facility] Danna [facility] [address] [place] [facility] POC GLUCOSE LABon 01-07-2022 Glucose [Mass/Vol] 111 mg/dL High 70-100 [facility] Comment on above: Performed By: #### 8 5499 #### [address] WRIST LEFT 2 VWSon 2 WRIST LEFT 2 S [facility] Department of Radiology [address] [place] [phone] ======== Patient Name: YASMANIDecember : 1985 Sex: F [...] the lunate Comments: Exam: WRIST LEFT 2 S ======== WRIST LEFT 2 [facility] CLINICAL INFORMATION: Intra op c-arm, left radial shortening osteotomy and core decompression of the lunate Dr. Chandra Fluoro Time: 16 sec. C-arm out at 2:30 pm. Intra op c-arm, left radial shortening osteotomy and core decompression of the lunate. IMPRESSION: Intraoperative fluoroscopy provided to the clinical service. 5 images. Fluoroscopy time 16 seconds. Dose 0.32 MGY. Electronically signed: Brady Chaney. Transcribed by: [email or web address], User Resident: Electronically Signed by: BRADY CHANEY @ 01/07/2022 03:17 PM Normal [facility] WRIST LEFT 3 VWSon 2 WRIST LEFT 3 S [facility] Department of Radiology [address] [place] [phone] ======== Patient Name: YASMANIDecember : 1985 Sex: F Age: Race: White Pt. 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 Electronically signed: Richard Granados. Transcribed by: [email or web address], User Resident: Electronically Signed by: RICHARD GRANADOS @ 11/17/2021 10:06 AM Normal [facility] Comment on above: Order Comment: Evalu ate WRIST LEFT 3 [facility] WRIST LEFT 3 [facility] Department of Radiology [address] [place] [phone] ======== Patient Name: YASMANIDecember : 1985 Sex: F Age: Race: White Pt. 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 Electronically signed: Nilsa Bai. Transcribed by: [email or web address], User Resident: Electronically Signed by: NILSA BAI @ 08/17/2021 09:31 PM Normal [facility] Comment on above: Order Comment: Evalu ate Operative Reporton Operative Report MR#: [id number] [facility] Pt. Name: Yasmani December Room #: 0C Discharge Date: Birthdate: 1985 OPERATIVE REPORT DATE OF SURGERY: 06/26/2021 SURGEON: Steve Chandra M.D. TELECOMMUNICATIONS LINE MECHANIC: Pooja Prescott. PREOPERATIVE DIAGNOSIS: Left Kienbock disease, [...] Chandra M.D. Date Trans: 06/26/2021 02:33 P/mmo [id number] cc: Durga Watters M.D. [address], [facility] [address] Normal [facility] POC GLUCOSE LABon 06-26-2021 Glucose [Mass/Vol] 119 mg/dL High 70-[address] [facility] Comment on above: Performed By: #### 8 5499 #### [address] WRIST LEFT 2 [facility] 1 WRIST LEFT 2 S [facility] Department of Radiology [address] [place] [phone] ======== Patient Name: YASMANIDecember : 1985 Sex: F Age: Race: White Pt. Location: OUT Patient Status: Ordered Date: 06/26/2021 7:05:00 AM Completed Date: 06/26/2021 01:50 PM Requesting Provider: YAZAN CHANDRA Attending Provider: YAZAN CHANDRA Report Copy To: Signs & Symptoms: Left wrist core decompression History: Left wrist core decompression Comments: Left wrist core decompression Exam: WRIST LEFT 2 [facility] ======== WRIST LEFT 2 [facility] 06/26/2021 1:50 PM CLINICAL INDICATIONS: Left wrist [...] procedure. Electronically signed: Venkata Rojas. Transcribed by: [email or web address], User Resident: Electronically Signed by: VENKATA ROJAS @ 06/26/2021 06:58 PM Normal [facility] Comment on above: Order Comment: Left wrist core decompression WRIST LEFT 3 [facility] 1 WRIST LEFT 3 [facility] Department of Radiology [address] [place] [phone] ======== Patient Name: December : 1985 Sex: F Age: Race: White Pt. Location: Patient Status: D Ordered Date: 06/14/2021 2:10:00 PM Completed Date: 06/14/2021 02:14 PM Requesting Provider: YAZAN CHANDRA Attending Provider: Report Copy To: Signs & Symptoms: M25.532 Pain in left wrist I10 History: Comments: evaluate Exam: WRIST LEFT 3 VWS ======== WRIST LEFT 3 VWS 06/14/2021 2:14 PM [...] report. Electronically signed: Bravo Abernathy. Transcribed by: [email or web address], User Resident: BRAVO TURNER Electronically Signed by: BRAVO ABERNATHY @ 06/15/2021 03:28 PM I personally read this/these film(s) with this resident Normal [facility] Comment on above: Order Comment: evalu ate Outside Recordson 02-10-2019 Outside Records [id number] Normal [facility] Encounters Encounter Date Encounter Type Care Provider Facility Start: 08-06-2024 ambulatory Facility:[facility] Start: 07-26-2024 End: 07-26-2024 ambulatory BRIAN GENI Not Available Start: 07-26-2024 End: 07-26-2024 Bamboo flowsheet Brian Geni DO Work Phone: [facility] Start: 07-26-2024 End: 08-03-2024 Bamboo flowsheet Brian Geni DO Work Phone: [facility] Start: 07-26-2024 End: 08-03-2024 Clinisync Result Encounter Brian Arechiga DO Work Phone: [facility] Unsolicited Start: 02-24-2024 End: 02-24-2024 ambulatory IRON GARCIA Not Available Start: 01-01-2024 End: 01-02-2024 ambulatory [facility] Start: 12-24-2023 End: 12-25-2023 ambulatory BETSEY Zuniga [facility] Start: 11-17-2023 End: 11-17-2023 ambulatory IRON S JOSE Not Available Start: 09-04-2023 End: 09-04-2023 ambulatory Durga Watters Facility:[facility] Start: 09-04-2023 End: 09-04-2023 ambulatory MD Durga Watters Work Phone: [facility] Work Phone: Start: 09-04-2023 End: 09-04-2023 Patient encounter procedure MD Durga Watters Work Phone: [facility] [place] Work Phone: Start: 06-18-2023 End: 06-18-2023 ambulatory [facility] Start: 05-02-2023 End: 05-02-2023 ambulatory [facility] Start: 04-21-2023 End: 04-21-2023 ambulatory [facility] Start: 04-10-2023 End: 04-11-2023 ambulatory [facility] Start: 2022 End: 11-19-[address] DURGA WATTERS . Facility:[facility] Start: 06-10-2022 End: 06-11-[address] DURGA WATTERS . Facility:[facility] Start: 01-28-2022 End: 01-29-[address] BRIAN ARECHIGA . Facility:[facility] Start: 01-07-2022 End: 01-08-2022 ambulatory DURGA HOY Facility:[facility] Start: 06-26-2021 End: 06-27-2021 ambulatory DURGA Y Facility:[facility] Procedures Date Procedure Procedure Detail Performing Clinician Start: 07-26-2024 IGP,APTIMA HPV,AGE GDLN Brian Geni DO Work Phone: Start: 06-26-2021 ANESTH LOWER ARM SURGERY DURGA HOY Start: 06-26-2021 TREAT FOREARM BONE LESION ABDULAZIM MACARIO Plan of Treatment Date Care Activity Detail Author Start: 08-02-2025 End: 08-02-2025 Patient encounter procedure 08/02/2025 11:00 AM EST Office Visit [facility] [address] [place] [address] Brian Arechiga, DO [address] [place], [place] [id number] [facility] Start: 07-26-2024 End: 07-26-2024 Patient encounter procedure 07/26/2024 3:00 PM EDT Office Visit [facility] [address] [place] [address] Brian Arechiga, DO [address] [place], [place] [id number] Arrived [facility] Comment on above: Arrived Start: 09-04-2023 MR Breast - bilateral F [facility] Start: 09-04-2023 MRI of bilateral breasts with contrast MR breast BI wo/w con CAD [facility] Payers Date Payer Category Payer Blue [employer] Blue [employer] BCBS [id number] 2023 Unknown [id number] 2023 Unknown [id number] 2023 Self-pay [id number] 2023 Medicaid [id number] 2009 Unknown [id number] 1984 Unknown [id number] [id number]. 647 1984 Unknown [id number] 2.16.840.1.094633.3.579.2. 647 1984 Unknown [id number] 2.16.840.1.677863.3.579.2. 593 1984 Unknown [id number] 2.16.840.1.769741.3.579.2. 593 1984 Unknown [id number] 2.16.840.1.123153.3.579.2. 593 1984 Unknown [id number] 2.16.840.1.287523.3.579.2. 1286 1984 Unknown [id number] 2.16.840.1.688359.3.579.2. 1259 1984 Unknown [id number] 2.16.840.1.622652.3.579.2. 1259 1984 Unknown [id number] 2.16.840.1.642562.3.579.2. 1259 1984 Unknown [id number] 2.16.840.1.001894.3.579.2. 1259 1959 Unknown [id number] 1959 Unknown [id number] Unknown [id number] [id number]. 531 Social History Date Type Detail Facility Start: 07-22-2023 Tobacco smoking status MIIS Current some day smoker [facility] Start: 1985 Sex Assigned At Female [facility] Start: 11-17-2023 End: 07-26-2024 Tobacco smoking status MIIS Smokes tobacco daily [facility] History of tobacco use Cigarette Smoker [facility] Start: 11-17-2023 End: 02-24-2024 Cigarettes smoked current (pack per day) - Reported 0.5 [facility] Start: 11-17-2023 End: 07-26-2024 Tobacco use and exposure Smokeless tobacco non-user [facility] Start: 02-24-2024 End: 07-26-2024 Alcoholic beverage intake Lifetime non-drinker (finding) [facility] Start: 02-24-2024 Tobacco use panel [facility] Start: 07-09-2023 Alcohol Comment caffeine: soda [facility] Start: 04-29-2023 Gender identity Identifies as female gender (finding) [facility] Start: 04-29-2023 Sexual orientation Heterosexual (finding) [facility] Medical Equipment Procedure Code Equipment Code Equipment Original Text Equipment Identifier Dates Reduction of breast with reconstruction BREAST IMPLANT MEDIUM 440CC FDA Start: 01-08-2018 Reconstruction, breast and nipple, TRAM flap, liposuction [id number] 0.8-1.7MM [facility] Start: 06-04-2018 Clinical Notes 01-28-2022 to 01-01-2024 Note Date & Type Note [...] and Pain of the Left Wrist 38-year-old jzbio-lxod-dleoprjt 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 Patient had left wrist osteotomy on 01/07/2022. Patient reports that she has been doing well and has good range of motion in her left wrist. She rates her pain as 2 now as Compared to 7-8 initially. Denies any numbness and tingling. 06/18/23December Yasmani is a 37 y.o. year old pfemq-oqhh-kkpldsll female presenting 7 weeks post debridement left [...] and has had minimal relief with CSI. 05/02/23December Yasmani is a 38 y.o. 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 year old xozoz-cpic-tvicbsri female presenting 7 weeks post debridement left [...] Gruber is a 37 y.o. year old ufcnc-qkbz-fgbgtkyq female presenting 10 days status post debridement [...] concerns arise, please contact clinic [facility] 06/18/23 [facility] 05-02-2023 Note Orthopedic Surgery Subjective Post-op of the Left Wrist Bailey Gruber is a 37 y.o. year old hxmxu-zksy-bhsjdcoy female presenting 10 days status post debridement [...] 6 weeks to review her functional status. [facility] 04-22-2023 Note No concerns as per c all back guidelines [facility] 04-21-2023 Note Patient: Bailey her Procedure Summary Date: 04/21/23 Room / Location: [facility] OR [address] [place] [address] [facility] OR Anesthesia Start: 957 Anesthesia Stop: 1038 Procedure: wrist Ecu tendon debridement (Left: Wrist) Diagnosis: Left wrist tendonitis Contusion of left wrist, initial encounter (Left wrist tendonitis [M77.8]) (Contusion of left wrist, initial encounter [S60.287A]) Surgeons: Keya Chandra MD Responsible Provider: Karla [...] per anesthesia protocol. No notable events documented. [facility] 04-21-2023 Note Discussed patient's antibiotic allergies with Dr. Misha Banks: Patient has reported allergies to the following medications: Base on cross reactivity of medications, cefazolin should NOT produce a cross-reactivity reaction. Side chains of cefazolin are significantly different from penicillin. Staff will monitor patient closely for any adverse reactions. Junior Perales, PharmD [facility] 04-21-2023 Note Peripheral Block Patient location during procedure: pre-op Start time: 04/21/2023 9:30 AM End time: 04/21/2023 9:48 AM Reason for block: primary anesthetic Staffing Performed: resident/SIDE PANEL HANGER/CAA Anesthesiologist: Karla Roblero MD Resident/SIDE PANEL HANGER: Nilsa Shaw MD Preanesthetic Checklist Completed: patient [...] rate change: no Slow fractionated injection: yes [facility] 04-21-2023 Note Patient: Bailey her Procedure Information Date/Time: 04/21/23 1020 Procedure: wrist Ecu tendon debridement (Left: Wrist) Location: [facility] OR [address] [place] [address] OR Surgeons: Keya Chandra MD Relevant Problems [...] Plan discussed with attending. Additional Equipment Requests [facility] 04-10-2023 Note ------ Attestation signed by [...] until surgery. Nish Hayes 04/10/23 4:20 PM [facility] 11-19-2022 Note PROCEDURE: XR HIP LT 2 3V W PELVIS HISTORY: Pain of left hip joint , chronic COMPARISON: None. FINDINGS: BONES:No fracture, acute abnormality, or significant arthropathy. SOFT TISSUES:No visible soft tissue swelling. EFFUSION:None visible. OTHER: Negative. IMPRESSION: 1. Normal appearance of left hip. Electronically authenticated by: GIANNI MORELAND Date: 2022-11-19 11:14 [facility] 06-10-2022 Note PROCEDURE: XR ANKLE RT MIN 3 VIEWS HISTORY: Pain of right ankle joint ; posterior ankle pain after falling COMPARISON: None. FINDINGS: BONES:No fracture, acute abnormality, or significant arthropathy. SOFT TISSUES:Lateral soft tissue swelling. EFFUSION:None visible. OTHER: Negative. IMPRESSION: 1. Moderate swelling suggesting soft tissue injury. 2. No acute bone abnormality. Electronically authenticated by: GIANNI MORELAND Date: 2022-06-10 12:52 [facility] 01-28-2022 Note DISCHARGE SUMMARY DISCHARGE DATE: [...] pain free and no longer on narcotics. [facility] Signed and Approved by: DR BRIAN ARECHIGA . 02/14/2022 21:23:00 [facility] 01-28-[address] [facility] [place], [place] NAME: BAILEY GRUBER DATE OF : MEDICAL REC#: [id number] PRINTING EQUIPMENT MECHANIC APPRENTICE: [id number] [facility], TRANSADMIT DATE: 01/28/2022 06:08:00 FULFILLMENT SPECIALIST DATE: 01/28/2022 23:00 DICTATING PHYSICIAN: BRIAN ARECHIGA DICTATION DATE: 01/28/2022 09:00 OPERATIVE NOTE OPERATION DATE: 01/28/2022 PREOPERATIVE DIAGNOSIS: Pelvic pain, left ovarian cyst. POSTOPERATIVE DIAGNOSIS: Pelvic pain, left ovarian cyst. PROCEDURE: Diagnostic laparoscopy which was then converted to an exploratory laparotomy. ANESTHESIA: General. SURGEON: Brian Arechiga D.O. TELECOMMUNICATIONS LINE MECHANIC: CUBA Hough URINE OUTPUT: Yellow and clear. [...] patient's skin was closed using 4-0 on jacqueline needle. The patient tolerated the procedure well. Sponge, lap, and needle counts were correct times two. Patient taken to the Recovery Room in stable condition. Electronically Authenticated and Edited by: Brian Arechiga DO on 02/12/2022 09:11 AM EDT I[facility] Signed and Approved by: DR BRIAN ARECHIGA . 02/12/2022 09:11:00 [facility] Evaluation note No assessment information [facility] Work Phone: Summary Purpose Family History No [...] section and content) DATE CREATED AUTHOR 02/20/2019 [facility] DATE CREATED AUTHOR AUTHOR'S ORGANIZ ATION 06/08/[address] [facility] DATE CREATED AUTHOR AUTHOR'S ORGANIZ ATION 01/25/2023 [facility] DATE CREATED AUTHOR AUTHOR'S ORGANIZ ATION 09/12/2023 [facility] DATE CREATED AUTHOR AUTHOR'S ORGANIZ ATION 12/25/2023 [facility] DATE CREATED AUTHOR AUTHOR'S ORGANIZ ATION 01/07/2024 [facility] DATE CREATED AUTHOR AUTHOR'S ORGANIZ ATION 07/27/2024 [facility] EPIC DATE CREATED AUTHOR AUTHOR'S ORGANIZ ATION 08/08/2024 [facility] Care Teams (unrecognized sec tion and content) Team Status: Active Member Role Status Dates Durga Watters MD Primary Care Provider Active Team Status: Inactive Member Role Status Dates Durga Watters MD Primary Care Provider Active [facility] Geni Attending Provider Active Animated Cartoons Painter Relationship Specialty Start Date End Date Durga Watters MD [address] [place] [address] PCP - General Family Medicine 07/22/23 Animated Cartoons Painter Relationship Specialty Start Date End Date Durga Watters MD [address] [place] [address] PCP - General Family Medicine 07/22/23 Goals (unrecognized section and content) Goals may [...] BE BASED ON THE PRIMARY CLINICAL RECORDS. [facility] bContext [facility]. provides no warranty or guarantee of the accuracy or completeness of information in this document.
--- NOTE | 2024-08-10 09:09 | US_ITS ---
Patient Name: JOANN JUNE MR#: [id number] : 1985 Exam Date: 08/10/2024 Ordering Doctor: DR Brian Arechiga . RADIOLOGY REPORT PROCEDURE: MM TOMOSYNTHESIS DIAGNOSTIC RT, 08/10/2024, 08:56 US BREAST RT LIMITED, 08/10/2024, 09:21 COMPARISON: MG MAMM RT DIAG W CAD, 09/17/2019. INDICATIONS: Breast Lump Right Side 9 O'Clock Position Calculator Name NCI Breast Cancer Risk Assessment Tool 5 Year Breast Cancer Risk n/a% Lifetime Breast Cancer Risk n/a% Personal Breast Cancer Yes, left breast phylloides tumor Personal Ovarian Cancer No Treatments mastectomy, Family Cancers Father with brain cancer at age 28. LOCATION: [facility] BREAST COMPOSITION: There are scattered areas of fibroglandular density. FINDINGS: DIAGNOSTIC CATEGORY 2--BENIGN FINDING. NO CHANGE FROM COMPARISON. Scattered benign-appearing nodules are present. Scattered benign-appearing calcifications are present. Scattered benign-appearing lymph nodes are present. Stable asymmetric density upper outer quadrant, Ultrasound demonstrates corresponding hyperechoic tissue. Findings likely represent postsurgical change from reduction mammoplasty and are stable from prior exam. RECOMMENDATIONS: ROUTINE MAMMOGRAM AND CLINICAL EVALUATION IN 12 MONTHS. PLEASE NOTE: A NORMAL MAMMOGRAM DOES NOT EXCLUDE THE POSSIBILITY OF BREAST CANCER. A CLINICALLY SUSPICIOUS PALPABLE LUMP SHOULD BE BIOPSIED. Dictated by: Matt Lima MD on 08/10/2024 at 09:41 Approved by: Matt Lima MD on 08/10/2024 at 09:44
== END 2024-08-10 08:48 | disposition home or self-care (01) ==
LOC: MAMMO 08:47
PROVIDERS: PCP Family Medicine; Visit Provider Obstetrics & Gynecology
DX: N63.15 Unspecified lump in the right breast, overlapping quadrants (principal); Z85.3 Personal history of malignant neoplasm of breast; Z80.8 Family history of malignant neoplasm of other organs or systems
CPT/HCPCS: 76642; 77065; G0279

== ENCOUNTER 2024-12-10 13:47 | Outpatient (OUT) | payer MEDICAID, SELFPAY ==
--- NOTE | 2024-12-10 13:56 | MR_ITS ---
[address] [address] Patient Name: JOANN JUNE MRN: [id number] date: 1985 Sex: F Assigned Patient Location: MRI Current Patient Location: MRI Accession/Order Number: [id number] Exam Date: 12/10/2024 15:18 Report Date: 12/10/2024 15:25 At the request of: DURGA MULLER MD Procedure: MR lumbar spine wo con EXAMINATION: MRI LUMBAR SPINE WITHOUT IV CONTRAST CLINICAL HISTORY: Low back pain radiating into left leg with left leg/foot numbness and tingling for 6 weeks. COMPARISON: None TECHNIQUE: Multiecho imaging was performed in the sagittal and axial planes without contrast administration. FINDINGS: Vertebral body heights appear maintained. No bone marrow edema is noted. Spinal cord terminates in normal position without abnormal cord signal. No paraspinal mass is seen. Visualized retroperitoneum demonstrates no acute findings. At L1-L2: No posterior disc pathology. No neural canal or foraminal stenosis. At L2-L3: No posterior disc pathology. No neural canal or foraminal stenosis. At L3-L4: No posterior disc pathology. No neural canal or foraminal stenosis. At L4-L5: Disc desiccation with mild broad-based disc bulge present. Findings are causing no significant canal or neural foraminal stenosis. At L5-S1: Mild diffuse broad-based disc bulge is present with mild facet joint degenerative change. No significant canal stenosis. No significant neural foraminal stenosis. MR/MR lumbar spine wo con IMPRESSION: Mild broad-based disc bulges are present at L4-L5 and L5-S1 causing no significant canal or neural foraminal stenosis. Impression dictated by: Anderw Ziegler Jr., DRoneyORoney12/10/2024 3:25 PM Dictation Location: [place] [address] Electronically authenticated by: [id number] Y Date: 12/10/2024 15:25
--- OUTSIDE RECORDS SUMMARY | 2024-12-10 13:59 | XMS_ITS | CCD ---
Author Organization [facility] CliniSynh Care Team Providers Care Carpenters Supervisor Name Role Phone DURGA MULLER Primary Care Unavailable DURGA MULLER Referring Unavailable MACARIO, ABDULAZIM Surgeon Unavailable MACARIO, ABDULAZIM Attending Unavailable MACARIO, ABDULAZIM Admitting Unavailable [place] Procedure Practitioner Unavailab le DURGA MULLER Primary Care Unavailable DURGA MULLER Referring Unavailable MACARIO, ABDULAZIM Admitting Unavailable MACARIO, ABDULAZIM Attending Unavailable GENI ., DR SULLIVAN Attending Unavailable GENI ., DR SULLIVAN Admitting Unavailable HOY ., DR CALIXTO Primary Care Unavailable PENA ., DR PRICE Consulting Unavailable GENI ., DR SULLIVAN Consulting Unavailable AGUBOSIM, KEVAN Consulting Unavailable DORKOSKIE, CHIQUIS Consulting Unavailable LANGENBERG, JUAQUIN Consulting Unavailable HOY ., DR CALIXTO Admitting Unavailable HOY ., DR CALIXTO Attending Unavailable HOY ., DR CALIXTO Consulting Unavailable HOY ., DR CALIXTO Primary Care Unavailable ZIEBER, DR GIANNI Sanders Consulting Unavailable HOY ., DR CALIXTO Admitting Unavailable HOY ., DR CALIXTO Attending Unavailable HOY ., DR CALIXOT Consulting Unavailable HOY ., DR CALIXTO Primary Care Unavailable ZIKENROY, DR GIANNI Sanders Consulting Unavailable MD Durga Muller Primary Care Provider Brian Arechiga Attending Provider Durga Muller Primary Care Unavailable Brian Arechiga Attending Unavailable Brian Arechiga Admitting Unavailable MACARIO, KEYA Attending Unavailable MACARIO, KEYA Referring Unavailable MACARIO, KEYA Referring Unavailable MACARIO, KEYA Admitting Unavailable MACARIO, KEYA Attending Unavailable MACARIO, KEYA Attending Unavailable MACARIO, KEYA Attending Unavailable MACARIO, KEYA Attending Unavailable Durga Muller MD Primary Care Provider [phone] IRON GARCIA Attending Unavailable IRON GARCIA Referring Unavailable IRON GARCIA Attending Unavailable BRIAN ARECHIGA Attending Unavailable Durga Muller Primary Care Physician Beata MCKINNON Attending Unavailable Renzo Durga Referring Unavailable BETSEY SMITH Referring Unavailable HOY, DURGA M Primary Care Unavailable DURGA MULLER Primary Care Unavailable Durga Muller MD Primary Care Provider [phone] DURGA MULLER M Referring Unavailable HOY, DURGA M Primary Care Unavailable HOY, DURGA M Referring Unavailable HOKenya, DURGA M Primary Care Unavailable VIRIDIANA MARTINEZ Attending Unavailable DURGA MULLER Referring Unavailable RENZO DURGA M Primary Care Unavailable Allergies Allergy Classification Reported Allergen(s) Allergy Type Date of Onset Reaction(s) Facility (5 sources) Amoxicillin; Translations: [AMOXICILLIN] Drug Allergy 01-10-20 17 Blister [facility] Repository (7 sources) Clindamycin; Translations: [CLINDAMYCIN] Drug Allergy 11-18-19 17 Blister [facility] Repository (8 sources) Codeine; Translations: [CODEINE] Drug Allergy 09-29-19 17 Blister [facility] Repository (8 sources) Doxycycline; Translations: [DOXYCYCLINE] Drug Allergy 11-18-19 17 Blister [facility] Repository (3 sources) Meperidine; Translations: [Demerol] Drug Allergy 09-29-19 17 [facility] Repository (2 sources) Sulfamethoxazole / Trimethoprim; Translations: [Bactrim] Drug Allergy 06-26-20 21 [facility] Repository (6 sources) Sulfonamides (Antibiotic); Translations: [SULFA (SULFONAMIDE ANTIBIOTICS)] Drug allergy (disorder) 09-29-19 17 [facility] Repository (1 source) Acetaminophen / HYDROcodone Drug Allergy 09-29-19 17 The [facility] Repository (1 source) Amoxicillin Drug Allergy 09-29-19 17 The [facility] Repository (1 source) Desonide Drug Allergy 09-29-19 17 The [facility] Repository (2 sources) Acetaminophen; Translations: [acetaminophen] Drug Allergy 01-08-20 Unknown Reaction [facility] (2 sources) Adhesive agent; Translations: [adhesive] Allergy to substance 01-09-20 Rash [facility] (6 sources) HYDROcodone; Translations: [hydrocodone] Drug Allergy 01-09-20 Hives, Unknown [facility] (12 sources) Meperidine; Translations: [meperidine] Drug Allergy 01-02-20 Hives, [facility] (2 sources) sulfADIAZINE; Translations: [sulfadiazine] Drug Allergy 01-09-20 Blister [facility] (1 source) Amoxicillin Drug Allergy 01-09-20 [facility] Repository (1 source) Clindamycin Drug Allergy 01-09-20 [facility] Repository (1 source) Codeine Drug Allergy 01-09-20 [facility] Repository (1 source) Doxycycline Drug Allergy 01-09-20 [facility] Repository (9 sources) Acetaminophen / HYDROcodone; Translations: [HYDROCODONE-ACETAM INOPHEN] Drug Allergy 01-02-20 Hives [facility] Repository (9 sources) Penicillins; Translations: [PENICILLINS] Propensity to adverse reactions to drug (disorder) 01-02-20 Unknown [facility] Repository (5 sources) Sulfamethoxazole / Trimethoprim; Translations: [SULFAMETHOXAZOLE-T RIMETHOPRIM] Drug Allergy 04-10-20 23 Other [facility] Repository (6 sources) Clindamycin; Translations: [clindamycin] Drug Allergy 01-10-20 Other, Rash [facility] Work Phone: (6 sources) Codeine; Translations: [codeine] Drug Allergy 01-01-20 Unknown, Other, Shortness of breath [facility] (6 sources) Doxycycline; Translations: [doxycycline] Drug Allergy 01-09-20 Unknown [facility] Comment on above: Outside Source Comme nt: Gianni Balta Syndrome (4 sources) Meperidine Drug Allergy 07-22-20 23 Hives [facility] (5 sources) Sulfonamides (Antibiotic) Drug Allergy 01-02-20 Other, Unknown [facility] (4 sources) Trimethoprim Drug Allergy 07-22-20 23 Unknown [facility] (2 sources) Penicillin; Translations: [penicillin] Drug Allergy unknown [facility] [place] (1 source) Sulfamethoxazole / Trimethoprim; Translations: [sulfamethoxazole-t rimethoprim] Drug Allergy unknown [facility] [place] (1 source) Clindamycin; Translations: [Cleocin HCl] Drug Allergy [facility] Repository (1 source) Amoxicillin Drug Allergy 01-10-20 17 [facility] Medications Current Medications Medication Drug Class(es) Dates Sig (Normalized) Sig (Original) 0.25 MG, 0.5 MG Dose 3 ML semaglutide 0.68 MG/ML Pen Injector [Ozempic] (1 source) Start: 10-04-2024 Ozempic 2 mg/3 mL (0.25 mg or 0.5 mg dose) subcutaneous solution 0.25 mg, SubCutaneous, qWeek, Refills(s) 0 Start Date: 10/04/24 Status: Ordered acetaminophen 325 mg / HYDROcodone bitartrate 5 mg oral tablet (1 source) Opioid Agonist Start: 11-03-2024 End: 11-06-2024 HYDROcodone-acetam inophen (NORCO) 5-325 mg per tablet Indications: Abscess Take 1 tablet by mouth every 6 (six) hours as needed for pain for up to 3 days. Max Daily Amount: 4 tablets 12 tablet 11/03/2024 11/06/2024 Active cephalexin 500 mg oral capsule (1 source) Cephalosporin Antibacterial Start: 11-03-2024 End: 11-13-2024 take 1 capsule by mouth in the morning, then take 1 capsule by mouth at bedtime CEPHalexin (KEFLEX) 500 mg capsule Take 1 capsule (500 mg total) by mouth in the morning and 1 capsule (500 mg total) before bedtime. Do all this for 10 days. 20 capsule 11/03/2024 11/13/2024 Active diclofenac sodium 75 mg delayed release oral tablet (1 source) Nonsteroidal Anti-inflammatory Drug Start: 10-04-2024 take 1 tablet by mouth twice daily diclofenac sodium 75 mg Oral EC Tab 75 mg = 1 tab(s), Oral, BID, Refills(s) 0 Start Date: 10/04/24 Status: Ordered ferrous sulfate 325 mg oral tablet (1 source) Start: 10-04-2024 take 1 tablet by mouth twice daily ferrous sulfate 325 mg Tab 325 mg = 1 tab(s), Oral, BID, Refills(s) 0 Start Date: 10/04/24 Status: Ordered metFORMIN hydrochloride 500 mg oral tablet (5 sources) Biguanide Start: 10-04-2024 take 1 tablet by mouth twice daily metformin 500 mg ER Tab 500 mg = 1 tab(s), Oral, BID, Refills(s) 0 Start Date: 10/04/24 Status: Ordered Start: 07-06-2023 take 1 tablet by gena th every twenty-four hours in the morning metFORMIN XR (Glucophage-XR) 500 MG 24 hr tablet Take 500 mg by mouth in the morning and at noon. 07/06/2023 Active Ozempic, 0.25 or 0.5 MG/DOSE, 2 MG/3ML solution pen-injector (3 sources) inject 0.25 mg by subcutaneous injection every week Ozempic, 0.25 or 0.5 MG/DOSE, 2 MG/3ML solution pen-injector Inject 0.25mg Subcutaneous once weekly 28 days Active pioglitazone 15 mg oral tablet (1 source) Peroxisome Proliferator Receptor alpha Agonist, Peroxisome Proliferator Receptor gamma Agonist, Thiazolidinedione Start: 2024 take 1 tablet by mouth once daily Actos 15 mg Tab 15 mg = 1 tab(s), Oral, Daily, Refills(s) 0 Start Date: 10/04/24 Status: Ordered Cosentyx (1 source) Interleukin-17A Antagonist Start: 2024 Cosentyx Refill(s) 0 Start Date: 10/04/24 Status: Ordered semaglutide (OZEMPIC) 0.25 mg or 0.5 mg (2 mg/3 mL) pen injector (1 source) Start: 2024 semaglutide (OZEMPIC) 0.25 mg or 0.5 mg (2 mg/3 mL) pen injector Inject 0.25 mg under the skin once a week. 10/04/2024 Active Completed/Discontinued Medications Medication Drug Class(es) Dates Sig (Normalized) Sig (Original) fluconazole 150 mg oral tablet (3 sources) Azole Antifungal Start: 3 End: 4 fluconazole (Diflucan) 150 MG tablet Indications: Yeast infection Take 1 tablet PO and then take second dose 3 days later if symptoms persist. 2 tablet 1 09/24/2023 07/26/2024 Discontinued methylPREDNISolone (3 sources) Corticosteroid Start: End: methylPREDNISolone (Medrol Dospak) 4 MG tablets Indications: Sprain of deltoid ligament of left ankle, initial encounter Take as directed on package. 21 tablet 11/17/2023 07/26/2024 Discontinued Start: 11-17-2023 methylPREDNISo lone (Medrol Dospak) 4 MG tablets Indications: Sprain of deltoid ligament of left ankle, initial encounter Take as directed on package. 21 tablet 11/17/2023 Active SITagliptin 100 mg oral tablet (3 sources) Dipeptidyl Peptidase 4 Inhibitor End: 07-26-2024 take 5 tablets by mouth in the morning SITagliptin (Januvia) 100 MG tablet Take 500 mg by mouth in the morning. 07/26/2024 Discontinued Problems Active Problems Problem Classification Problem Date Documented Date Episodic/Chronic Cancer of breast (1 source) Malignant tumor of breast Onset: 04-21-2023 10-04-2024 Chronic Cancer of breast (8 sources) Personal history of malignant neoplasm of breast; Translations: [History of malignant neoplasm of breast] Onset: 02-14-2022 11-05-2024 Episodic Diabetes mellitus without complication (1 source) Diabetes mellitus 10-04-2024 Chronic Headache; including migraine (1 source) Migraine with aura 10-04-2024 Chronic Menstrual disorders (1 source) Dysmenorrhea, unspecified; Translations: [DYSMENORRHEA UNSPECIFIED] Onset: 02-14-2022 Chronic Nonmalignant breast conditions (11 sources) Breast lump; Translations: [Unspecified lump in the right breast, overlapping quadrants] Onset: 07-27-2024 07-27-2024 Episodic Other bone disease and musculoskeletal deformities (1 source) Osteochondritis of the carpal lunate 10-04-2024 Chronic Other connective tissue disease (2 sources) Other enthesopathies, not elsewhere classified; Translations: [Other enthesopathies, not elsewhere classified] Onset: 04-11-2023 Episodic Other connective tissue disease (1 source) History of osteomyelitis 10-04-2024 Episodic Other non-traumatic joint disorders (4 sources) Pain in left hip; Translations: [PAIN IN LEFT HIP] Onset: 2022 Episodic Other nutritional; endocrine; and metabolic disorders (1 source) Overweight 10-04-2024 Episodic Other skin disorders (1 source) Hidradenitis suppurativa 10-04-2024 Episodic Ovarian cyst (3 sources) Follicular cyst of left ovary; Translations: [Corpus luteum cyst of left ovary] Onset: 02-14-2022 10-04-2024 Episodic Residual codes; unclassified (1 source) Tobacco user 10-14-2024 Episodic Residual codes; unclassified (1 source) Pain, unspecified; Translations: [Pain, unspecified] Onset: 11-03-2024 Episodic Skin and subcutaneous tissue infections (3 sources) Cutaneous abscess, unspecified; Translations: [Abscess] Onset: 11-03-2024 Episodic Substance-related disorders (1 source) Nicotine dependence, cigarettes, uncomplicated; Translations: [NICOTINE DEPEND CIGARETTES UNCOMP] Onset: 02-14-2022 Chronic Unclassified (1 source) Unspecified lump in unspecified breast; Translations: [Unspecified lump in unspecified breast] Onset: 09-04-2023 Unclassified (2 sources) Post-op; Translations: [Post-op] Onset: 05-02-2023 Unclassified (1 source) Idiopathic avascular necrosis of bone 10-04-2024 Unclassified (1 source) Consult Onset: 11-05-2024 Past or Other Problems Problem Classification Problem Date Documented Da te Episodic/Chronic Abdominal pain (5 sources) Pelvic and perineal pain; Translations: [Lower abdominal pain] Onset: 09-02-2019 Episodic Other aftercare (1 source) Other usp (current) drug therapy; Translations: [Other exterminator helper termite (current) drug therapy] Onset: 12-24-2023 Episodic Other gastrointestinal disorders (1 source) Peritoneal [...] [Pain in left wrist] Onset: 04-10-2023 Episodic Other skin disorders (1 source) Hidradenitis suppurativa; Translations: [Hidradenitis suppurativa] Onset: 12-24-2023 Episodic Residual codes; unclassified (1 source) Laparoscopic [...] left wrist, initial encounter] Onset: 04-11-2023 Episodic Unclassified (1 source) Breast pain, right 11-05-2024 Results Test Name Value Interpretation Reference Range Facility Provider Letteron 08-23-2024 Provider Letter Provider Letter August 23, 2024December YASMANI [address] [place] [id number] : 1985 Dear Ms. Gruber, We have been trying to reach you with no success regarding a referral from Dr Muller. It is important that you return our call upon receiving this letter. Also, at the time of your call, please provide us with your current information. Thank you for your prompt attention to this matter. Sincerely, [facility] General Surgery [phone] Normal [facility] IGP,APTIMA HPV,AGE GDLNon AGE GDLN ACOG TESTING Note . [facility] Comment on above: TESTS RESULT FLAG UN ITS REF RANGE LAB Clinician Provided Cytology Information Source.............Vagina No. of containers..01 ThinPrep Vial Age Soha VALDEZ Ora... 29 FLAG LEGEND: L-Low Normal,H-High Normal,LL-Alert Low,HH-Alert High <-Panic Low,>-Panic High,A-Abnormal,AA-Critical Abnormal Performed at: 01 =G [address] [id number] Janet Vizcarra MD, HPV APTIMA Negative Negative [facility] Comment on above: This nucleic acid am plification test detects fourteen high- risk HPV types (16,18,31,33,35,39,45,51,52,56,58,59,66,68) without differentiation. Performed at: =G - [facility] [id number] Judge'S Clerk: Janet Vizcarra MD, Phone: [phone] Performed at: - [address] [id number] Judge'S Clerk: Janet Vizcarra MD, Phone: [phone] IGP, APTIMA HPV, RFX 16/18,45 Note . [facility] Comment on above: TESTS RESULT FLAG UN ITS REF RANGE LAB DIAGNOSIS: 02 NEGATIVE FOR INTRAEPITHELIAL LESION OR MALIGNANCY. Specimen adequacy: 02 Satisfactory for evaluation. Performed by: 02 Funmilayo Shelton, Grease Remover ([facility]) . 02 Note: Note 02 The Pap [...] Low,>-Panic High,A-Abnormal,AA-Critical Abnormal Performed at: [address] [place] [address] Janet Vizcarra MD, SPATULA-ALONE VAGINA CLINISYNC [facility] Healthcare Follow-Upon 01-01-2024 Follow-Up [id number] Yasmani,1985 F Date Provider Department Center 01/01/2024 CORY FUNES ORTHO MPORTHO No family history on file Level of Service:06404 [place] OFFICE/OUTPATIENT ESTABLISHED LOW MDM 20 MIN Reason for Visit and Comments: Follow-up [542066] Pain [136] Normal [facility] QUANTIFERON TB GOLDon 2023 MITOGEN MINUS NIL >9.99 Normal >=0.50 [facility] Comment on above: Performed By: #### Q TBG #### [facility] ([id number]) [address] [place] [address] NIL RESULT 0.01 IU/mL Normal <=8.00 [facility] Comment on above: Performed By: #### Q TBG #### [facility] ([id number]) [address] [place] [address]697 TB INTERPRETATION See below Normal [facility] Comment on above: Result Comment: NOTE Infection with M. tuberculosis complex is unlikely. If latent tuberculosis infection is highly suspected, a negative result does not rule out the infection. Specimens from immunocompromised patients and those <5 years of age may show false negative results. In case of a contact investigation, please repeat 8-12 weeks after a known exposure. Test Performed By: [place] [address] Manager Stone: Pete Mo III #[id number] Performed By: #### Q TBG #### [facility] ([id number]) [address] [place] [address] TB RESULT Negative Normal [facility] Comment on above: Performed By: #### Q TBG #### [facility] ([id number]) [address] [place] [address] TB1 AG MINUS NIL 0.00 IU/mL Normal <0.[address] [facility] Comment on above: Performed By: #### Q TBG #### [facility] ([id number]) [address] [place] [address]572 TB2 AG MINUS NIL 0.00 IU/mL Normal <0.[address] [facility] Comment on above: Performed By: #### Q TBG #### [facility] ([id number]) [address] [place] [address]318 MR breast BI wo/w con CADon 09-05-2023 MR breast BI wo/w con CAD [facility] Main [place] [address] [place] [address] MRI Report Signed Patient: Bailey Gruber MR#: [id number] : 1985 Acct:[id number] Age/Sex: 37 / F ADM Date: 09/04/23 Loc: MR Room: Type: [facility] Attending Dr: Brian Arechiga Copies to: Brian [...] All imaged data was reviewed using the Casengo system. The postcontrast images were subtracted and [...] Ziegler Jr., D.ORoney09/05/2023 12:15 PM Dictation Location: [place] [address] Transcribed By: [facility] 09/05/23 1215 Dictated By: Andrew Ziegler Jr, DO 09/05/23 1209 Signed By: 09/05/23 1215 [facility] Telephoneon 07-14-2023 Telephone [id number] Yasmani,1985 F Date Provider Department Center 07/14/2023 Theodora-PATRICA ROOT MP ORTHO MPORTHO No family history on file [facility] Follow-Upon 06-18-2023 Follow-Up [id number] Yasmani,1985 F Date Provider Department Center 06/18/2023 CORY FUNES ORTHO MPORTHO No family history on file Level of Service:14780 [place] POSTOP FOLLOW UP VISIT RELATED TO ORIGINAL PX Reason for Visit and Comments: Post-op [483] Follow-up [506168] [facility] Office Visiton 05-02-2023 Follow-up visit [id number] Yasmani,1985 F Date Provider Department [place] 05/02/2023 CORY FUNES ORTHO MPORTHO No family history on file Level of Service:97269 [place] POSTOP FOLLOW UP VISIT RELATED TO ORIGINAL PX Reason for Visit and Comments: Post-op [483] Normal [facility] HISTOLOGY - TISSUE EXAMon LAB AP CASE REPORT Normal [facility] Comment on above: Order Comment: Pre-o p diagnosis:Left wrist tendonitis [M77.8]Contusion of left wrist, initial encounter [S60.212A] Result Comment: Surg ical Pathology Case: [id number] Authorizing Provider: Keya Sorto MD Collected: 04/21/2023 1015 Ordering Location: [facility] Received: 04/21/2023 1130 [facility] [place] Pathologist: Shelli Miranda MD Specimen: Wrist, TENOSYNOVIUM OF LEFT EXTENSOR TENDON Performed By: #### L [id number] ####[facility] (BEAKER)[address] [place] [address] LAB AP CLINICAL INFORMATION Normal [facility] Comment on above: Order Comment: Pre-o p diagnosis:Left wrist tendonitis [M77.8]Contusion of left wrist, initial encounter [S60] Result Comment: Post -Op Diagnoses M77.8 - Left wrist tendonitis [ICD-10-CM] S60.212A - Contusion of left wrist, initial encounter [ICD-10-CM] Performed By: #### L [id number] ####[facility] ([facility])[address] [place] [address] LAB AP GROSS DESCRIPTION A. Wrist. [facility] Comment on above: Order Comment: Pre-o p diagnosis:Left wrist tendonitis [M77.8]Contusion of left wrist, initial encounter [S60] Result Comment: Rece ived in formalin in a container labeled Bailey Yasmani, TENOSYNOVIUM OF LEFT EXTENSOR TENDON . The specimen consists of one soft white-tobin tissue measuring 1.0 x 0.3 x 0.2 cm. The entire specimen is submitted in 1 cassette. Lebron Cabezas, PGY1 Performed By: #### L [id number] ####[facility] ([facility])[address] [place] [address] LAB AP MICROSCOPIC DESCRIPTION Microscopic examination performed. [facility] Comment on above: Order Comment: Pre-o p diagnosis:Left wrist tendonitis [M77.8]Contusion of left wrist, initial encounter [S60A] Performed By: #### L [id number] ####[facility] ([facility])[address] [place] [address] LAB AP REPORT FINAL DIAGNOSIS NARRATIVE [facility] Comment on above: Order Comment: Pre-o p diagnosis:Left wrist tendonitis [M77.8]Contusion of left wrist, initial encounter [S6] Result Comment: A. T enosynovium, extensor tendon of left wrist, excision: - Benign synovial tissue, consistent with procedure. - No malignancy identified. Performed By: #### L [id number] ####[facility] ([facility])[address] [place] [address] HP 04-21-2023 H&P reviewed. The patient was examined and there are no changes to the H&P. Normal [facility] OPNOTEon 04-21-2023 OPNOTE wrist Ecu tendon debridement (L) Operative Note Date: 04/21/2023 Location: [facility] OR Name: Bialey Gruber : 1985, Diagnosis Pre-op Diagnosis * Left wrist tendonitis [M77.8] * Contusion of left wrist, initial encounter [] Post-op Diagnosis * Left wrist tendonitis [M77.8] * Contusion of left wrist, initial encounter [S6] Procedures wrist Ecu tendon debridement 05172 - [place] DEBRIDEMENT BONE MUSCLE &/FASCIA 20 SQ CM/< Excision cyst tendon sheath left wrist Surgeons * Keya Macario - Primary Procedure Summary Anesthesia: Monitor Anesthesia Care ASA: III Estimated Blood Loss: 10 mL Specimens ID Source Type Tests Collected By Collected At Frozen? Priority Lab ID A Wrist Tissue HISTOLOGY - TISSUE EXAM Keya Sorto MD 04/21/23 1015 No Routine [id number] Description: TENOSYNOVIUM OF LEFT EXTENSOR TENDON Staff: Gambling Supervisor: Malu Pham RN Scrub Person: Radha Doshi, MEDICAL DOSIMETRIST Indications: Bailey Gruber is an 37 y.o. female who is having surgery for Left wrist tendonitis [M77.8] Contusion of left wrist, initial encounter []. Procedure Details: The patient was seen in [...] PACU - hemodynamically stable. Condition: stable Keya Sorto Normal [facility] POCT GLUCOSE METER UNSOLICIT ED RESULTSon 04-21-2023 Glucose [Mass/Vol] 172 mg/dL High 70-105 [facility] Comment on above: Order Comment: Waive d Testing in the ED is performed under the ED CLIA certificate #[id number]. Result Comment: [facility] eman Performed By: #### L [id number] ####[facility] (BEAKER)[address] [place] [address] Follow-Upon 04-10-2023 Follow-Up [id number] Yasmani,1985 F Date Provider Department Center 04/10/2023 CORY FUNES MPORTHO No family history on file Level of Service:74230 [place] OFFICE/OUTPATIENT ESTABLISHED LOW MDM 20-29 MIN Reason for Visit and Comments: Pain [136] Follow-up [681992] Normal [facility] HPon 04-10-2023 HP -- Attestation signed by Keya Sorto MD at 04/13/2023 8:53 AM As the [...] surgery. Nish Hayes 04/10/23 4:20 PM Normal [facility] WRIST LEFT 3 Son 2 WRIST LEFT 3 S [facility] Department of Radiology [address] [place] [phone] ======== Patient Name: BAILEY GRUBER : 1985 Sex: F Age: Race: White Pt. Location: Patient Status: Ordered Date: 06/07/2022 8:45:00 AM Completed Date: 06/07/2022 11:14 AM Requesting Provider: YAZAN SORTO Attending Provider: Report Copy To: Signs & Symptoms: M25.532 Pain in left wrist I10 History: [place] Comments: Evaluate Exam: WRIST LEFT 3 VWS ======== WRIST LEFT 3 VWS 06/07/2022 11:14 AM [...] report. Electronically signed: Danny Quintero. Transcribed by: [email or web address], User Resident: CINDI STEPHENSON Electronically Signed by: DANNY QUINTERO @ 06/07/2022 01:11 PM I personally read this/these film(s) with this resident Normal [facility] Comment on above: Order Comment: Evalu ate WRIST LEFT 3 [facility] 2 WRIST LEFT 3 S [facility] Department of Radiology [address] [place] [phone] ======== Patient Name: YASMANIDecember : 1985 Sex: F Age: Race: White Pt. Location: 84 Patient Status: D Ordered Date: 03/28/2022 1:10:00 PM Completed Date: 03/28/2022 01:17 PM Requesting Provider: YAZAN SORTO Attending Provider: Report Copy To: Signs & Symptoms: M25.532 Pain in left wrist I10 History: Comments: evaluate Exam: WRIST LEFT 3 [facility] ======== WRIST LEFT 3 S 03/28/2022 1:17 PM [...] above. Electronically signed: Surinder Ocasio. Transcribed by: [email or web address], User Resident: Electronically Signed by: SURINDER OCASIO @ 03/29/2022 02:02 PM Normal [facility] Comment on above: Order Comment: evalu ate WRIST LEFT 3 [facility] 2 WRIST LEFT 3 [facility] Department of Radiology [address] [place] [phone] ======== Patient Name: YASMANIDecember : 1985 Sex: F Age: Race: White Pt. Location: 84 Patient Status: D Ordered Date: 02/14/2022 10:05:00 AM Completed Date: 02/14/2022 10:09 AM Requesting Provider: YAZAN SORTO Attending Provider: YAZAN SORTO Report Copy To: Signs & Symptoms: M25.532 [...] variance. Electronically signed: BEATA PIRES. Transcribed by: [email or web address], User Resident: Electronically Signed by: BEATA PIRES @ 02/15/2022 01:21 PM Normal [facility] Comment on above: Order Comment: Evalu ate BUNon 01-29-2022 Urea nitrogen [Mass/Vol] 8.0 mg/dL Normal 7.0-18.0 [facility] Comment on above: Performed By: #### B SERAFIN WETZEL #### [facility] [address] [place] [id number] Kimberly Saucedo CBC AUTO DIFFon 01-29-2022 BASO # 0.0 103/ul Normal 0.0-0.1 [facility] Comment on above: Performed By: #### C BC #### [facility] [address] [place] [address] Dr. Kimberly Saucedo Basophils/100 WBC (Bld) 0.2 % Normal 0.2-2.0 [facility] Comment on above: Performed By: #### C BC #### [facility] [address] [place] [address] Dr. Kimberly Saucedo EO # 0.0 103/ul Normal 0.0-0.7 [facility] Comment on above: Performed By: #### C BC #### [facility] [address] [place] [address] Dr. Kimberly Saucedo Eosinophils/100 WBC (Bld) 0.2 % Critically low 0.9-7.0 [facility] Comment on above: Performed By: #### C BC #### [facility] [address] [place] [address] Dr. Kimberly Saucedo Erythrocyte distribution width (RBC) [Ratio] 12.8 % Normal 11.0-15.0 [facility] Comment on above: Performed By: #### C BC #### [facility] [address] [place] [address] Dr. Kimberly Saucedo Hematocrit (Bld) [Volume fraction] 36.5 % Normal 36.0-48.0 [facility] Comment on above: Performed By: #### C BC #### [facility] [address] [place] [address] Dr. Kimberly Saucedo Hemoglobin (Bld) [Mass/Vol] 12.1 g/dL Normal 12.0-16.0 [facility] Comment on above: Performed By: #### C BC #### [facility] [address] [place] [address] Dr. Kimberly Saucedo IG # 0.06 10e3/ul Critically high 0.00-0.03 [facility] Comment on above: Performed By: #### C BC #### [facility] [address] [place] [address] Dr. Kimberly Saucedo IG % 0.5 % Normal 0.0-0.5 [facility] Comment on above: Performed By: #### C BC #### [facility] [address] [place] [address] Dr. Kimberly Saucedo LYMPH # 1.8 103/ul Normal 1.2-3.8 [facility] Comment on above: Performed By: #### C BC #### [facility] [address] [place] [address] Dr. Kimberly Saucedo Lymphocytes/100 WBC (Bld) 14.3 % Critically low 20.5-60.0 [facility] Comment on above: Performed By: #### C BC #### [facility] [address] [place] [address] Dr. Kimberly Saucedo MANUAL DIFF REQ NO Normal [facility] Comment on above: Performed By: #### C BC #### [facility] [address] [place] [address] Dr. Kimberly Saucedo MCH (RBC) [Entitic mass] 30.1 pg Normal 26.7-34.0 [facility] Comment on above: Performed By: #### C BC #### [facility] [address] [place] [address] Dr. Kimberly Saucedo MCHC (RBC) [Mass/Vol] 33.2 g/dL Normal 29.9-35.2 [facility] Comment on above: Performed By: #### C BC #### [facility] [address] [place] [address] Dr. Kimberly Saucedo MCV (RBC) [Entitic vol] 90.8 fL Normal 81.0-99.0 [facility] Comment on above: Performed By: #### C BC #### [facility] [address] [place] [address] Dr. Kimberly Saucedo MONO # 0.8 103/ul Normal 0.3-0.8 [facility] Comment on above: Performed By: #### C BC #### [facility] [address] [place] [address] Dr. Kimberly Saucedo Monocytes/100 WBC (Bld) 6.3 % Normal 1.7-12.0 [facility] Comment on above: Performed By: #### C BC #### [facility] [address] [place] [address] Dr. Kimberly Saucedo NEUT # 9.9 103/ul Critically high 1.4-6.5 [facility] Comment on above: Performed By: #### C BC #### [facility] [address] [place] [address] Dr. Kimberly Saucedo Neutrophils/100 WBC (Bld) 78.5 % Critically high 43.0-75.0 [facility] Comment on above: Performed By: #### C BC #### [facility] [address] [place] [address] Dr. Kimberly Saucedo Platelet mean volume (Bld) [Entitic vol] 9.6 fL Normal 9.5-13.5 [facility] Comment on above: Performed By: #### C BC #### [facility] [address] [place] [address] Dr. Kimberly Saucedo PLT 236 103/ul Normal 150-450 [facility] Comment on above: Performed By: #### C BC #### [facility] [address] [place] [address] Dr. Kimberly Saucedo RBC 4.02 106/ul Critically low 4.20-5.40 [facility] Comment on above: Performed By: #### C BC #### [facility] [address] [place] [address] Dr. Kimberly Saucedo WBC 12.5 103/ul Critically high 4.0-11.0 [facility] Comment on above: Performed By: #### C BC #### [facility] [address] [place] [address] Dr. Kimberly Saucedo CREATININEon 01-29-2022 Creatinine [Mass/Vol] 0.69 mg/dL Normal 0.55-1.02 [facility] Comment on above: Performed By: #### B UN, CREA #### [facility] [address] [place] [address] Dr. Kimberly Saucedo EGFR-AF SAMOAN >60 Normal >=60 [facility] Comment on above: Performed By: #### B UN, CREA #### [facility] [address] [place] [address] Dr. Kimberly Saucedo EGFR-NON AF SAMOAN >60 Normal >=60 [facility] Comment on above: Performed By: #### B UN, CREA #### [facility] [address] [place] [address] Dr. Kimberly Saucedo CBC AUTO DIFFon 01-28-2022 BASO # 0.0 103/ul Normal 0.0-0.1 [facility] Comment on above: Performed By: #### C BC #### [facility] [address] [place] [address] Dr. Kimberly Saucedo Basophils/100 WBC (Bld) 0.3 % Normal 0.2-2.0 [facility] Comment on above: Performed By: #### C BC #### [facility] [address] [place] [address] Dr. Kimberly Saucedo EO # 0.2 103/ul Normal 0.0-0.7 [facility] Comment on above: Performed By: #### C BC #### [facility] [address] [place] [address] Dr. Kimberly Saucedo Eosinophils/100 WBC (Bld) 1.6 % Normal 0.9-7.0 [facility] Comment on above: Performed By: #### C BC #### [facility] [address] [place] [address] Dr. Kimberly Saucedo Erythrocyte distribution width (RBC) [Ratio] 12.9 % Normal 11.0-15.0 [facility] Comment on above: Performed By: #### C BC #### [facility] [address] [place] [address] Dr. Kimberly Saucedo Hematocrit (Bld) [Volume fraction] 44.3 % Normal 36.0-48.0 [facility] Comment on above: Performed By: #### C BC #### [facility] [address] [place] [address] Dr. Kimberly Saucedo Hemoglobin (Bld) [Mass/Vol] 14.7 g/dL Normal 12.0-16.0 [facility] Comment on above: Performed By: #### C BC #### [facility] [address] [place] [address] Dr. Kimberly Saucedo IG # 0.04 10e3/ul Critically high 0.00-0.03 [facility] Comment on above: Performed By: #### C BC #### [facility] [address] [place] [address] Dr. Kimberly Saucedo IG % 0.4 % Normal 0.0-0.5 [facility] Comment on above: Performed By: #### C BC #### [facility] [address] [place] [address] Dr. Kimberly Saucedo LYMPH # 2.6 103/ul Normal 1.2-3.8 [facility] Comment on above: Performed By: #### C BC #### [facility] [address] [place] [address] Dr. Kimberly Saucedo Lymphocytes/100 WBC (Bld) 24.5 % Normal 20.5-60.0 [facility] Comment on above: Performed By: #### C BC #### [facility] [address] [place] [address] Dr. Kimberly Saucedo MANUAL DIFF REQ NO Normal [facility] Comment on above: Performed By: #### C BC #### [facility] [address] [place] [address] Dr. Kimberly Saucedo MCH (RBC) [Entitic mass] 29.7 pg Normal 26.7-34.0 [facility] Comment on above: Performed By: #### C BC #### [facility] [address] [place] [address] Dr. Kimberly Saucedo MCHC (RBC) [Mass/Vol] 33.2 g/dL Normal 29.9-35.2 [facility] Comment on above: Performed By: #### C BC #### [facility] [address] [place] [address] Dr. Kimberly Saucedo MCV (RBC) [Entitic vol] 89.5 fL Normal 81.0-99.0 [facility] Comment on above: Performed By: #### C BC #### [facility] [address] [place] [address] Dr. Kimberly Saucedo MONO # 0.6 103/ul Normal 0.3-0.8 [facility] Comment on above: Performed By: #### C BC #### [facility] [address] [place] [address] Dr. Kimberly Saucedo Monocytes/100 WBC (Bld) 5.6 % Normal 1.7-12.0 [facility] Comment on above: Performed By: #### C BC #### [facility] [address] [place] [address] Dr. Kimberly Saucedo NEUT # 7.1 103/ul Critically high 1.4-6.5 [facility] Comment on above: Performed By: #### C BC #### [facility] [address] [place] [address] Dr. Kimberly Saucedo Neutrophils/100 WBC (Bld) 67.6 % Normal 43.0-75.0 [facility] Comment on above: Performed By: #### C BC #### [facility] [address] [place] [address] Dr. Kimberly Sacuedo Platelet mean volume (Bld) [Entitic vol] 9.0 fL Critically low 9.5-13.5 [facility] Comment on above: Performed By: #### C BC #### [facility] [address] [place] [address] Dr. Kimberly Saucedo PLT 273 103/ul Normal 150-450 [facility] Comment on above: Performed By: #### C BC #### [facility] [address] [place] [address] Dr. Kimberly Saucedo RBC 4.95 106/ul Normal 4.20-5.40 [facility] Comment on above: Performed By: #### C BC #### [facility] [address] [place] [address] Dr. Kimberly Saucedo WBC 10.5 103/ul Normal 4.0-11.0 [facility] Comment on above: Performed By: #### C BC #### [facility] [address] [place] [address] Dr. Kimberly Saucedo Operative Reporton 2 Operative Report MR#: [id number] [facility] Pt. Name: Yasmani Bailey Room #: 0C Discharge Date: Birthdate: 1985 OPERATIVE REPORT DATE OF SURGERY: 01/07/2022 SURGEON: Steve Sorto M.D. SHIP CEILER: Dank Gutierres MD PREOPERATIVE DIAGNOSIS: Left wrist [...] was transferred back in stable condition. Dr. Sorto was present for all critical portions of the procedure and immediately available for assistance at all times. Electronically Signed by: Steve Sorto M.D. 01/09/2022 06:43 P Steve Sorto M.D. I was present for the entire procedure. Date Dict: 01/07/2022/02:52 P/Dank Gutierres MD Date Trans: 01/08/2022 01:44 A/marc [id number] cc: Durga Muller M.D. [address] [facility] [id number] Normal [facility] POC GLUCOSE LABon 01-07-2022 Glucose [Mass/Vol] 111 mg/dL High 70-100 [facility] Comment on above: Performed By: #### 8 [id number] #### [id number] [place] [address] WRIST LEFT 2 Son 2 WRIST LEFT 2 S [facility] Department of Radiology [address] [place] [phone] ======== Patient Name: YASMANIDecember : 1985 Sex: F Age: Race: White Pt. Location: OUTP Patient Status: O Ordered Date: 01/07/2022 6:45:00 AM Completed Date: 01/07/2022 02:30 PM Requesting Provider: YAZAN SORTO Attending Provider: YAZAN SORTO Report Copy To: Signs & Symptoms: Intra op c-arm, left radial shortening osteotomy and core decompression of the lunate History: Intra op c-arm, left radial shortening osteotomy and core decompression of the lunate Comments: Exam: WRIST LEFT 2 S ======== WRIST LEFT 2 [facility] CLINICAL INFORMATION: Intra op c-arm, left radial shortening osteotomy and core decompression of the lunate Dr. Sorto Fluoro Time: 16 sec. C-arm out at 2:30 pm. Intra op c-arm, left radial shortening osteotomy and core decompression of the lunate. IMPRESSION: Intraoperative fluoroscopy provided to the clinical service. 5 images. Fluoroscopy time 16 seconds. Dose 0.32 MGY. Electronically signed: Brady Sinclair. Transcribed by: [email or web address], User Resident: Electronically Signed by: BRADY SINCLAIR @ 01/07/2022 03:17 PM Normal [facility] WRIST LEFT 3 Son 2 WRIST LEFT 3 S [facility] Department of Radiology [address] [place] [phone] ======== Patient Name: YASMANIDecember : 1985 Sex: F Age: Race: White Pt. Location: Patient Status: D Ordered Date: 11/16/2021 10:10:00 AM Completed Date: 11/16/2021 10:08 AM Requesting Provider: YAZAN SORTO Attending Provider: YAZAN SORTO Report Copy To: Signs & Symptoms: M87.039 [...] likely due to AVN. Electronically signed: Richard rGanados. Transcribed by: [email or web address], User Resident: Electronically Signed by: RICHARD GRANADSO @ 11/17/2021 10:06 AM Normal [facility] Comment on above: Order Comment: Evalu ate WRIST LEFT 3 Son WRIST LEFT 3 S [facility] Department of Radiology [address] [place] [phone] ======== Patient Name: YASMANIDecember : 1985 Sex: F Age: Race: White Pt. 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 Electronically signed: Nilsa Bai. Transcribed by: [email or web address], User Resident: Electronically Signed by: NILSA JODI @ 08/17/2021 09:31 PM Normal [facility] Comment on above: Order Comment: Evalu ate Operative Reporton Operative Report MR#: [id number] [facility] Pt. Name: Yasmani December Room #: 0C Discharge Date: Birthdate: 1985 OPERATIVE REPORT DATE OF SURGERY: 06/26/2021 SURGEON: Steve Sorto M.D. SHIP CEILER: Pooja Prescott. PREOPERATIVE DIAGNOSIS: Left Kienbock disease, [...] LOSS: 0 mL. Electronically Signed by: Steve Sorto M.D. 06/28/2021 08:03 A Steve Sorto M.D. Date Dict: 06/26/2021/12:16 P/Steve Sorto M.D. Date Trans: 06/26/2021 02:33 P/mmo [id number] cc: Durga Muller M.D. [address], [place] [address] Normal [facility] POC GLUCOSE LABon 06-26-2021 Glucose [Mass/Vol] 119 mg/dL High 70-100 [facility] Comment on above: Performed By: #### 8 [id number] #### [address] WRIST LEFT 2 [facility] 1 WRIST LEFT 2 [facility] Department of Radiology [address] [place] [phone] ======== Patient Name: YASMANIDecember : 1985 Sex: F Age: Race: White Pt. Location: OUT Patient Status: Ordered Date: 06/26/2021 7:05:00 AM Completed Date: 06/26/2021 01:50 PM Requesting Provider: YAZAN SORTO Attending Provider: YAZAN SORTO Report Copy To: Signs & Symptoms: Left wrist core decompression History: Left wrist core decompression Comments: Left wrist core decompression Exam: WRIST LEFT 2 S ======== WRIST LEFT 2 [facility] 06/26/2021 1:50 PM CLINICAL INDICATIONS: Left wrist core decompression TECHNOLOGIST COMMENTS: Dr. Sorto used 9 seconds of fluoro time for a left wrist decompression QUESTION FOR THE RADIOLOGIST: Left wrist core decompression PROTOCOL: AP(PA) and Lateral views were obtained. COMPARISON: None IMPRESSION: Fluoroscopy provided intraoperatively. Seconds of fluoroscopy time was utilized 11 images from fluoroscopic evaluation demonstrate stages of the procedure. Electronically signed: Venkata Rojas. Transcribed by: [email or web address], User Resident: Electronically Signed by: VENKATA ROJAS @ 06/26/2021 06:58 PM Normal [facility] Comment on above: Order Comment: Left wrist core decompression WRIST LEFT 3 [facility] 1 WRIST LEFT 3 S [facility] Department of Radiology [address] [place] [phone] ======== Patient Name: December : 1985 Sex: F Age: Race: White Pt. Location: Patient Status: D Ordered Date: 06/14/2021 2:10:00 PM Completed Date: 06/14/2021 02:14 PM Requesting Provider: YAZAN SORTO Attending Provider: Report Copy To: Signs & [...] Approved by:Dank Schwab06/15/2021 2:39 PM. I, Bravo Soliman,have reviewed the image(s) and agree with the findings in this report. Electronically signed: Bravo Soliman. Transcribed by: [email or web address], User Resident: BRAVO TURNER Electronically Signed by: BRAVO SOLIMAN @ 06/15/2021 03:28 PM I personally read this/these film(s) with this resident Normal [facility] Comment on above: Order Comment: evalu ate Outside [facility] 02-10-2019 Outside Records [id number] TGTIFF Normal [facility] Vital Signs Date Time Vital Sign Value Performing Clinician Facility 11-05-2024 10:02050 Body height 167.6 cm [facility] 11-05-2024 10:02050 Body mass index (BMI) [Ratio] 25.35 kg/m2 Viridiana Martinez Vivino [facility] 11-05-2024 10:020500 Body weight 71.22 kg Viridiana Valenzuelaman ASSOCIATE [employer] Work Phone: [facility] [employer] [facility] 11-05-2024 10:02-0500 Diastolic blood pressure 85 mm[Hg] Viridiana Martinez ASSOCIATE [employer] Work Phone: [facility] [employer] 11-05-2024 10:02-0500 Heart rate 94 /min Viridiana Michelle ASSOCIATE [employer] Work Phone: [facility] [employer] 11-05-2024 10:02-0500 Respiratory rate 16 /min Viridiana Martinez ASSOCIATE [employer] Work Phone: [facility] [employer] [facility] 11-05-2024 10:02-0500 Systolic blood pressure 127 mm[Hg] Viridiana Martinez ASSOCIATE [employer] Work Phone: [facility] 07-26-2024 15:23-0400 Body height 167.6 cm Brian Geni [employer] Work Phone: [facility] [employer] 07-26-2024 15:23-0400 Body mass index (BMI) [Ratio] 28.57 kg/m2 Brian Geni DO Work Phone: [facility] [employer] 07-26-2024 15:23-0400 Body weight 80.29 kg Brian Geni DO Work Phone: [facility] [employer] 07-26-2024 15:23-0400 Diastolic blood pressure 76 mm[Hg] Brian Geni DO Work Phone: [facility] 07-26-2024 15:23-0400 Systolic blood pressure 110 mm[Hg] Brian Geni DO Work Phone: [facility] Healthcare Encounters Encounter Date Encounter Type Care Provider Facility Start: 11-05-2024 End: 11-05-2024 Office outpatient new 45 minutes Viridiana Martinez ASSOCIATE [employer] Work Phone: [facility] Comment on above: Mass of upper outer quadrant of right breast (Primary Dx); History of left breast cancer; Personal history of malignant neoplasm of breast; Breast pain, right; H/O malignant phylloides tumor of breast Start: 11-05-2024 End: 11-05-2024 [facility] Start: 11-03-2024 ambulatory [facility] Start: 11-03-2024 End: 11-03-2024 Emergency department patient visit [facility] Start: 10-19-2024 End: 10-19-2024 ambulatory Beata MCKINNON Facility:[facility] Start: 10-19-2024 End: 10-19-2024 Patient encounter procedure Beata Marilyn MCKINNON [facility] [place] Start: 08-06-2024 ambulatory Beata MCKINNON Facility:[facility] Start: 07-26-2024 End: 07-26-2024 Patient encounter procedure Brian Geni DO Work Phone: [facility] Start: 07-26-2024 End: 07-26-2024 Periodic preventive med est patient 18-39 yrs Brian Geni DO Work Phone: [facility] Comment on above: Well woman exam with routine gynecological exam; Breast lump on right side at 9 o'clock position Start: 07-26-2024 End: 07-26-2024 ambulatory BRIAN GENI Not Available Start: 07-26-2024 End: 07-26-2024 Bamboo flowsheet Brian Geni DO Work Phone: [facility] Start: 07-26-2024 End: 08-03-2024 Bamboo flowsheet Brian Geni DO Work Phone: [facility] Start: 07-26-2024 End: 08-03-2024 Clinisync Result Encounter Brian Geni DO Work Phone: [facility] Unsolicited Start: 02-24-2024 End: 02-24-2024 ambulatory IRON GARCIA Not Available Start: 01-01-2024 End: 01-02-[address] [facility] Start: 12-24-2023 End: 12-24-2023 ambulatory BETSEY Zuniga [facility] Start: 11-17-2023 End: 11-17-2023 ambulatory IRON GARCIA Not Available Start: 09-04-2023 End: 09-04-2023 ambulatory Durga Muller Facility:[facility] Start: 09-04-2023 End: 09-04-2023 ambulatory MD Durga Muller Work Phone: [facility] Work Phone: Start: 09-04-2023 End: 09-04-2023 Patient encounter procedure MD Durga Muller Work Phone: [facility] [place] Work Phone: Start: 06-18-2023 End: 06-18-[address] [facility] Start: 05-02-2023 End: 05-02-[address] [facility] Start: 04-21-2023 End: 04-21-[address] [facility] Start: 04-10-2023 End: 04-11-[address] [facility] Start: 2022 End: 11-19-[address] DURGA MULLER . Facility: Start: 06-10-2022 End: 06-11-[address] DURGA MULLER . Facility: Start: 01-28-2022 End: 01-29-[address] BRIAN ARECHIGA . Facility: Start: 01-07-2022 End: 01-08-2022 ambulatory DURGA MULLER Facility:[facility] Start: 06-26-2021 End: 06-27-2021 ambulatory DURGA MULLER Facility:[facility] Procedures Date Procedure Procedure Detail Performing Clinician Start: 07-26-2024 IGP,APTIMA HPV,AGE GDLN Brian Arechiga DO Work Phone: Start: 06-26-2021 ANESTH LOWER ARM SURGERY DURGA MULLER Start: 06-26-2021 TREAT FOREARM BONE LESION ABDULAZIM MACARIO section Beata PULLIAM L Dilation and curettage Kaden MCKINNON Excision of ganglion of wrist Beata PULLIAML Excision of lipoma Beata MYLES Hysterectomy Beata MCKINNON Partial mastectomy Beata MYLES Comment on above: with reconstruction Release of tendon Beata ESCOTO LL Tonsillectomy and adenoidectomy Beata MCKINNON Plan of Treatment Date Care Activity Detail Author Start: 11-05-2025 Adult BMI Screening Adult BMI Screen ing [facility] Start: 11-05-2025 Tobacco Screening Tobacco Screening [facility] Start: 08-02-2025 End: 08-02-2025 Patient encounter procedure 08/02/2025 11:00 AM EST Office Visit [facility] [address] [place] [address] Brian Arechiga DO [address], [place] [address] [facility] Start: 11-05-2024 End: 05-04-2025 MR Breast - bilateral WO and W contrast IV MR bilateral breast with and without contrast with CAD Imaging Routine Personal history of malignant neoplasm of breast Mass of upper outer quadrant of right breast Breast pain, right H/O malignant phylloides tumor of breast Expected: 11/05/2024 (Approximate), Expires: 05/04/2025 [facility] Work Phone: Comment on above: Expected: 11/05/2024 (Approximate), Expires: 05/04/2025 Start: 07-26-2024 End: 07-26-2024 Patient encounter procedure 07/26/2024 3:00 PM EDT Office Visit [facility] [address] [place] [address] Geni, Brian, [address] [place] [address] Arrived [facility] Comment on above: Arrived Start: 07-26-2024 End: 09-25-2025 MG Breast - right Diagnostic Right diagnostic mammogram Imaging Routine Breast lump on right side at 9 o'clock position Expected: 07/26/2024 (Approximate), Expires: 09/25/2025 [facility] Comment on above: Expected: 07/26/2024 (Approximate), Expires: 09/25/2025 Start: 05-30-2024 Influenza vaccination Influenza Vacc ine [facility] Start: 09-04-2023 MR Breast - bilateral F [facility] Start: 09-04-2023 MRI of bilateral norah asts with contrast MR breast BI wo/w con CAD [facility] Start: 06-06-2021 DTaP,Tdap and Td Vaccines (2 - Td or Tdap) DTaP,Tdap and Td Vaccines (2 - Td or Tdap) [facility] Start: 2002 Adult BMI Follow Up Plan Adult BMI Follow Up Plan [facility] Start: 1996 Depression Screening Depression Scre ening [facility] Start: 1984 Tobacco Counseling Tobacco Counselin g [facility] Cytology Cervical or vaginal smear or scraping study Pap Smear Pathology and Cytology Routine Well woman exam with routine gynecological exam Ordered: 07/26/2024 [facility] Work Phone: Comment on above: Ordered: 07/26/2024 Human papilloma viru s DNA [Presence] in Unspecified specimen by Probe with amplification HPV DNA probe, amplified Microbiology Routine Well woman exam with routine gynecological exam Ordered: 07/26/2024 [facility] Comment on above: Ordered: 07/26/2024 Payers Date Payer Category Payer [facility] Managed Care - Other [place] [id number] 2023 [facility] [id number] 2023 Unknown [id number] 2023 Unknown [id number] 2023 Self-pay [id number] 2018 Unknown [id number] 2016 Unknown [id number] 2009 Unknown [id number] 2003 Medicaid [id number] 1984 Unknown [id number] 2..840.1.197796.3.579. 2.647 1984 Unknown [id number] 2.840.1.779658.3.579. 2.647 1984 Unknown [id number] 2.16840.1.130740.3.579. 2.593 1984 Unknown [id number] 2.16.840.1.902579.3.579. 2.593 1984 Unknown [id number] 2.16.840.1.880948.3.579. 2.593 1984 Unknown [id number] 2.16840.1.633786.3.579. 2.1259 1984 Unknown [id number] 2.16840.1.781455.3.579. 2.1259 1984 Unknown [id number] 2.16840.1.268517.3.579. 2.1259 1984 Unknown [id number] 2.16840.1.801335.3.579. 2.1259 1984 Unknown [id number] 2.840.1.461032.3.579. 2.727 1984 Unknown [id number] 2.840.1.498785.3.579. 2.1286 1984 Unknown [id number] 2.840.1.672920.3.579. 2.1286 1984 Unknown [id number] 2.16840.1.237276.3.579. 2.1286 1984 Unknown [id number] 2.840.1.189567.3.579. 2.128 1984 Unknown [id number] 2.840.1.933053.3.579. 2.1286 1984 Unknown [id number] 2.840.1.533372.3.579. 2.1286 1959 Unknown [id number] 1959 Unknown [id number] Unknown [id number] 2.16840.1.852443.3.579. 2.531 Social History Date Type Detail Facility Start: 10-24-2023 Tobacco smoking status NHIS Current some day smoker [facility] Start: 1985 Sex Assigned At Female [facility] Start: 11-17-2023 End: 11-05-2024 Tobacco smoking status IDIS Smokes tobacco daily [facility] History of tobacco use [facility]igarette [facility] Start: 10-13-2020 End: 11-17-2023 Cigarettes smoked current (pack per day) - Reported 0.5 [facility] Start: 11-17-2023 End: 11-05-2024 Tobacco use and exposure Smokeless tobacco non-user [facility] Start: 02-24-2024 End: 07-26-2024 Alcoholic beverage intake Lifetime non-drinker (finding) [facility] Start: 10-13-2020 End: 02-24-2024 Tobacco use panel [facility] Start: 07-09-2023 Alcohol Comment caffeine: soda [facility] Start: 04-29-2023 Gender identity Identifies as female gender (finding) [facility] Start: 04-29-2023 Sexual orientation Heterosexual (finding) [facility] Start: 10-14-2024 Tobacco smoking status Light tobacco smoker (finding) [facility] Start: 11-05-2024 Alcoholic beverage intake Current non-drinker of alcohol (finding) [facility] Childcare Unknown [facility] Start: 1985 Sex assigned at Not on file [facility] Start: 05-04-2015 Sex Female (finding) [facility] Medical Equipment Procedure Code Equipment Code Equipment Original Text Equipment Identifier Dates Reduction of breast with reconstruction BREAST IMPLANT MEDIUM 440CC FDA Start: 01-08-2018 Reconstruction, breast and nipple, TRAM flap, liposuction [id number] 0.8-1.7MM FDA Start: 06-04-2018 Clinical Notes 01-28-2022 to 11-05-2024 ANTHONY Stahl - 11/05/2024 10:00 AM Lorenzo Arechiga DO - 07/26/2024 3:00 PM EDT Note Date & Type Note Facility 11-05-2024 History of Present illness Narrative Images from the original note were not included. 11/05/2024 DIAGNOSIS: Bailey Gruber is a 38 y.o. female who [facility] for evaluation and recommendations regarding a right breast mass. HISTORY OF PRESENT ILLNESS: Bailey Gruber is a 38 y.o. female who presents for evaluation of right breast lump with associated pain. Hx of malignant phyllodes tumor left breast 2016, s/p left mastectomy with implant reconstruction, right mastopexy for symmetry. Patient reports right breast pain for the past several months. Pain is focal, located to upper outer quadrant, described as tenderness to touch. Denies injury or trauma. No alleviating factors. Patient underwent right diagnostic mammogram and right breast ultrasound on 08/10/2024 at [facility]. Per the radiologist's report, scattered benign appearing nodules are present. Scattered benign appearing lymph nodes are present. Stable asymmetric density upper outer quadrant. Ultrasound demonstrates corresponding hyperechoic tissue. Findings are likely represent post surgical changes from reduction mammoplasty and are stable from prior exam. She denies any skin or nipple changes, no nipple discharge or associated symptoms. She does note a history of HS with skin lesions that come and go to bilateral axilla, breasts, and groin. GYNECOLOGICAL HISTORY AND RISK ASSESSMENT: HEALTH HISTORY: The patient's past medical history, medications, and allergies have been reviewed in Epic. 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 Tachycardia PAST SURGICAL HISTORY: Past Surgical History: Procedure Laterality Date BREAST BIOPSY Left 2016 BREAST LUMPECTOMY Left 2017 SECTION CYST REMOVAL DILATION AND CURETTAGE OF UTERUS HYSTERECTOMY LAPAROSCOPIC APPENDECTOMY N/A 09/02/2019 Performed by Beata Arnold DO at [place] [facility] MASTECTOMY, PARTIAL REDUCTION MAMMAPLASTY TONSILLECTOMY ADENOIDECTOMY TYMPANOSTOMY TUBE PLACEMENT MEDICATIONS: Current Outpatient Medications: ciprofloxacin HCl (CIPRO) 500 mg tablet, Take 1 tablet (500 mg total) by mouth 2 (two) times a day., Disp: 20 tablet, Rfl: 0 ALLERGIES: Allergies Allergen Reactions Amoxicillin Gianni Balta Syndrome Clindamycin Gianni Balta Syndrome Doxycycline Gianni Balta Syndrome Penicillins Gianni balta syndrome Sulfa (Sulfonamide Antibiotics) Gianni balta syndrome Codeine Demerol [Meperidine] Vicodin [Hydrocodone-Acetaminophen] FAMILY HISTORY Family History Problem Relation Age of Onset Hypertension Mother Cancer Father Heart defect Daughter partial anomalous pulmonary venous return SOCIAL HISTORY Social History Socioeconomic History Marital status: Tobacco Use Smoking status: Every Day Current packs/day: 0.50 Average packs/day: 0.5 packs/day for 20.0 years (10.0 ttl pk-yrs) Types: Cigarettes Smokeless tobacco: Never Substance and Sexual Activity Alcohol use: No Drug use: No Sexual activity: Defer Partners: Male control/protection: None Social Drivers of Health Financial Resource Strain: Low Risk (04/10/2023) Received from [facility], [facility] Overall Financial Resource Strain (CARDIA) Difficulty of Paying Living Expenses: Not very hard Food Insecurity: No Food Insecurity (02/12/2023) Hunger Screening Food Insecurity - Worry: Never True Food Insecurity - Inability: Never True Transportation Needs: No Transportation Needs (04/10/2023) Received from [facility], [facility] Transportation In the past 12 months, has lack of transportation kept you from medical appointments or from getting medications?: No In the past 12 months, has lack of transportation kept you from meetings, work, or from getting things needed for daily living?: No Interpersonal Safety: Not At Risk (01/01/2024) Received from [facility] Humiliation, Afraid, Rape, and Kick questionnaire Fear of Current or Ex-Partner: No Emotionally Abused: No Physically Abused: No Sexually Abused: No REVIEW OF SYSTEMS: A review of systems was performed. Pertinent patient information is noted below: Review of Systems Constitutional: Negative for chills, fatigue, fever and unexpected weight change. HENT: Negative for congestion, hearing loss, postnasal drip, sinus pressure and sore throat. Eyes: Negative for pain and discharge. Respiratory: Negative for cough, shortness of breath and wheezing. Cardiovascular: Negative for chest pain and palpitations. Gastrointestinal: Negative for abdominal pain, constipation, diarrhea, nausea and vomiting. Genitourinary: Negative for dysuria, frequency, menstrual problem, pelvic pain, vaginal discharge and vaginal pain. Musculoskeletal: Negative for back pain and myalgias. Skin: Negative for rash and wound. Neurological: Negative for dizziness, weakness and headaches. Psychiatric/Behavioral: Negative for confusion. The patient is not nervous/anxious. BREASTS: breast pain PHYSICAL EXAMINATION BP 127/85 (BP Site: Left Arm, BP Postition: Sitting, BP CUFF SIZE: L (13-17 inches)) Pulse 94 Resp 16 Ht 167.6 cm (5' 5.98 ) Wt 71.2 kg (157 lb) LMP 08/14/2016 BMI 25.35 kg/m GENERAL: no acute distress, well developed, well nourished. EYES: normal sclera/conjunctiva. ENT: hearing normal for conversation. NECK: no cervical lymphadenopathy, neck supple, trachea midline, no masses. LUNGS: clear to auscultation bilaterally, no wheeze, rhonchi or rales, normal respiratory effort. CARDIO: Regular rate and rhythm, S1 & S2 normal, no murmurs. BREAST (R): ill defined tender nodularity 10 o'clock outer 1/3, no skin changes, no nipple discharge, no nipple retraction, no supra/infraclavicular adenopathy, no axillary adenopathy. BREAST (L): s/p mastectomy with nipple reconstruction, large tattoo overlying breast, implant soft, intact; no masses present, no skin changes, no tenderness, no supra/infraclavicular adenopathy, no axillary adenopathy. LYMPHATIC: no upper extremity lymphedema. ABDOMEN: soft, nontender, no masses palpable. MUSCULOSKELETAL: Gait normal, no CVAT, no spinal tenderness. NEUROLOGIC: alert and oriented to time, place and person. PSYCH: judgement and insight good, mood/affect full range. RADIOGRAPHIC IMAGING BREAST IMAGING reviewed and discussed with the patient: [place] [address] Ultrasound Report Signed Patient: YASMANIBAILEY Fer MR#: [id number] : 1985 Acct:[id number] Age/Sex: 38 / F ADM Date: 08/10/24 Loc: MAMMO Attending Dr: Brian Arechiga D.O. Ordering Physician: Brian Arechiga D.O. Date of Service: 08/10/24 Procedure(s): US breast RT limited Accession Number(s): [id number] cc: Brian Arechiga D.O.; Durga Muller M.D. Patient Name: BAILEY GRUBER MR#: [id number] : 1985 Exam Date: 08/10/2024 Ordering Doctor: DR Brian Arechiga . RADIOLOGY REPORT PROCEDURE: MM TOMOSYNTHESIS DIAGNOSTIC RT, 08/10/2024, 08:56 US BREAST RT LIMITED, 08/10/2024, 09:21 COMPARISON: MG MAMM RT DIAG W CAD, 09/17/2019. INDICATIONS: Breast Lump Right Side 9 O'Clock Position Calculator Name NCI Breast Cancer Risk Assessment Tool 5 Year Breast Cancer Risk n/a% Lifetime Breast Cancer Risk n/a% Personal Breast Cancer Yes, left breast phylloides tumor Personal Ovarian Cancer No Treatments mastectomy, Family Cancers Father with brain cancer at age 28. LOCATION: [facility] BREAST COMPOSITION: There are scattered areas of fibroglandular density. FINDINGS: DIAGNOSTIC CATEGORY 2--BENIGN FINDING. NO CHANGE FROM COMPARISON. Scattered benign-appearing nodules are present. Scattered benign-appearing calcifications are present. Scattered benign-appearing lymph nodes are present. Stable asymmetric density upper outer quadrant, Ultrasound demonstrates corresponding hyperechoic tissue. Findings likely represent postsurgical change from reduction mammoplasty and are stable from prior exam. RECOMMENDATIONS: ROUTINE MAMMOGRAM AND CLINICAL EVALUATION IN 12 MONTHS. PLEASE NOTE: A NORMAL MAMMOGRAM DOES NOT EXCLUDE THE POSSIBILITY OF BREAST CANCER. A CLINICALLY SUSPICIOUS PALPABLE LUMP SHOULD BE BIOPSIED. Dictated by: aMtt Lima MD on 08/10/2024 at 09:41 Approved by: Matt Lima MD on 08/10/2024 at 09:44 Dictated By: Matt Lima M.D. Signed By: 08/10/2445 DD/ TD/TT: Cement Paver: Exam End: -- Specimen Collected: 08/10/24 09:44 Last Resulted: 08/10/24 09:45 Received From: [employer] Result Received: 11/02/24 11:23 ASSESSMENT: ICD-10-CM 1. Mass of upper outer quadrant of right breast N63.11 2. History of left breast cancer Z85.3 3. Personal history of malignant neoplasm of breast Z85.3 4. Breast pain, right N64.4 5. H/O malignant phylloides tumor of breast Z85.3 Bailey Gruber is a 38 y.o. female with right breast pain and palpable concern. PLAN OF CARE: Discussed and reviewed with patient recent imaging findings and clinical breast exam findings. Discussed treatment options. A breast MRI will be requested to exclude pathologic etiology (last breast MRI 08/2023). Follow up pending results of testing. The patient understands and agrees with the plan as discussed. All questions answered. Viridiana Martinez CNP [facility] Breast Surgery [phone] ANTHONY Stahl 11/05/24 1232 documented in this encounter [facility] [employer] [facility] 07-26-2024 History of Present illness Narrative Reason for Appointment: Patient ID: Bailey Gruber is a 38 y.o. female who presents for Well Women Visit Patient presents today for Annual Exam. MEDICATIONS Current Outpatient Medications Medication Instructions metFORMIN XR (GLUCOPHAGE-XR) 500 mg, Oral, 2 times daily (05/10) Ozempic, 0.25 or 0.5 MG/DOSE, 2 MG/3ML solution pen-injector Inject 0.25mg Subcutaneous once weekly 28 days ALLERGIES Allergies Allergen Reactions Clindamycin Other and Rash Gianni Balta Syndrome Codeine Unknown, Other and Shortness of breath Chest pain Doxycycline Unknown Gianni Balta Syndrome Penicillins Unknown Gianni balta syndrome Gianni Balta Syndrome Gianni balta syndrome Gianni Balta Syndrome Sulfa Antibiotics Other and Unknown Gianni balta syndrome Hydrocodone Hives and Unknown Hydrocodone-Acetaminophen Hives Meperidine Hives and Unknown Meperidine Hcl Hives Sulfamethoxazole-Trimethoprim Other Gianni balta syndrome Trimethoprim Unknown PROBLEMS Active Ambulatory Problems Diagnosis Date Noted No Active Ambulatory Problems Resolved Ambulatory Problems Diagnosis Date Noted No Resolved Ambulatory Problems Past Medical History: Diagnosis Date Abnormal Pap smear of cervix Acute pelvic pain, female Appendicitis 2018 Arrhythmia Bilateral breast cysts 2014 BMI 29.0-29.9,adult Breast lump on right side at 8 o'clock position Breast nodule Cervical dysplasia Diabetes mellitus (CMS/HCC) 05/2023 Hidradenitis suppurativa History of breast cancer History of medical problems 2014 Left ovarian cyst Leg pain 2013 Malignant phyllodes tumor of left breast (CMS/HCC) 11/2016 Post-operative state Postoperative examination Skin abscess 2012 HISTORY PAST MEDICAL HISTORY SOCIAL HISTORY Past Medical History: Diagnosis Date Abnormal Pap smear of cervix Acute pelvic pain, female Appendicitis 2018 Arrhythmia Bilateral breast cysts 2014 BMI 29.0-29.9,adult Breast lump on right side at 8 o'clock position Breast nodule Cervical dysplasia Diabetes mellitus (CMS/HCC) 05/2023 Hidradenitis suppurativa History of breast cancer History of medical problems 2014 Right axillary cyst Left ovarian cyst Leg pain 2013 leg wound/pain Malignant phyllodes tumor of left breast (CMS/HCC) 11/2016 Post-operative state Postoperative examination Skin abscess 2012 Social History Tobacco Use Smoking status: Every Day Current packs/day: 0.50 Average packs/day: 0.5 packs/day for 15.0 years (7.5 ttl pk-yrs) Types: Cigarettes Smokeless tobacco: Never Vaping Use Vaping status: Never Used Substance Use Topics Alcohol use: Never Comment: caffeine: soda Drug use: Never FAMILY HISTORY Family History Problem Relation Name Age of Onset Hypertension Mother Bia Hypertension Father Chinedu Brain cancer Father Chinedu Stroke Father Chinedu Hypertension Sister Wendy Drug abuse Brother Rosalio illicit drug addiction Hypertension Paternal Grandmother Leena Diabetes Paternal Grandmother Leena Cancer Paternal Grandfather Chinedu SURGICAL HISTORY Past Surgical History: Procedure Laterality Date ABDOMINAL HYSTERECTOMY C[facility] BREAST LUMPECTOMY Breast nodule BREAST LUMPECTOMY Left 11/2016 SECTION, LOW TRANSVERSE 2004; 04/2017 CHOLECYSTECTOMY 2010 COLONOSCOPY 2013 CYST REMOVAL 05/2015 excision bilateral breast cysts/right axillary cyst DEBRIDEMENT 2013 excisional debridement breast/thigh/groin - skin abscesses DEBRIDEMENT Bilateral 2013 axillary abscesses EXCISION 12/2016 Wide excision of left breast lumpectomy site HYSTERECTOMY 2018 LAPAROSCOPY DIAGNOSTIC / BIOPSY / ASPIRATION / LYSIS 12/17/2021 Diagnostic laparoscopy/left oophrectomy MASTECTOMY left breast mastectomy with reconstruction - [place] LAPAROSCOPIC APPENDECTOMY 08/2019 Dr Arnold [place] TONSILLECTOMY & ADENOIDECTOMY AGE 11/> WOUND CARE 2013 excision thigh/buttock wound WOUND DEBRIDEMENT Right 2013 lower leg wound/ pain REVIEW OF SYSTEMS Review of Systems: Review of Systems All other systems reviewed and are negative. OBJECTIVE Objective: Physical Exam Constitutional: Appearance: Normal appearance. She is well-developed. Genitourinary: Vulva normal. Genitourinary Comments: Patient as 2cm in size mass at 9 o'clock position on right breast. Breasts: Breasts are soft. Right: Mass present. Left: Breast implant present. Cardiovascular: Rate and Rhythm: Normal rate and regular rhythm. Pulmonary: Effort: Pulmonary effort is normal. Breath sounds: Normal breath sounds. Abdominal: General: Bowel sounds are normal. There is no distension. Palpations: Abdomen is soft. Tenderness: There is no abdominal tenderness. There is no guarding or rebound. Musculoskeletal: General: No swelling. Normal range of motion. Right lower leg: No edema. Left lower leg: No edema. Neurological: Mental Status: She is alert and oriented to person, place, and time. Skin: General: Skin is warm and dry. Psychiatric: Mood and Affect: Mood normal. Behavior: Behavior normal. Vitals and nursing note reviewed. Exam conducted with a farmworker general present. Vitals: Estimated body mass index is 28.57 kg/m as calculated from the following: Height as of this encounter: 5' 6 . Weight as of this encounter: 177 lb. BP: 110/76 No LMP recorded. Patient has had a hysterectomy. ASSESSMENT & PLAN ICD-10-CM 1. Well woman exam with routine gynecological exam Z01.419 Pap Smear HPV DNA probe, amplified 2. Breast lump on right side at 9 o'clock position N63.15 Right diagnostic mammogram Annual Exam: Patient presents today for an annual exam. Patient states she is doing well and has complaints of right breast mass. Pap was obtained without difficulty. Patient does have right breast mass 2cm in size @ 9 o'clock position. Patient has history of breast cancer with left mastectomy. Patient will be referred to breast specialist Dr. Asher in [place] for management of right breast lump/mass. Patient given order for right diagnostic mammogram with breast ultrasound if indicated. Orders Placed This Encounter Procedures HPV DNA probe, amplified Right diagnostic mammogram Follow Up: Patient is to return in one year for annual unless needed otherwise. Documented by Sherrill Thacker PA-C on behalf of: Brian Arechiga DO documented in this encounter [facility] 01-01-2024 Note Attestation signed by Keya Sorto MD at 01/06/2024 12:25 PM I personally saw and examined the patient on the same date of service as resident/fellow . I discussed the findings and therapeutic plan with the resident/fellow . I agree with the documentation, except for any edits/updates below. 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 year old arhma-zblz-jdnkwttn female presenting 7 weeks post debridement left wrist extensor tendon [ECU]. She reports improved ECU pain following surgery, more significant when sharp contact is made over the area. She has a history of left wrist osteotomy 01/07/2022 with radial shortening, lunate core decompression. She is reporting increased wrist pain over the lunate, /, controlled with tylenol and ibuprofen. She previously discussed proimal row carpectomy, but is not ready to proceed with surgery and has had minimal relief with CSI. 05/02/23 Bailey Gruber is a 38 y.o. year old tvtim-lgsq-jeuqtfmo female presenting 10 days status post debridement [...] debridement Past Medical History: Diagnosis Date Cancer ([facility]) 2016, breast left Irregular heart beat tachycardia 2018 Kienbock's disease Maturity onset diabetes of young (NUHA) type 11 ([facility]) 2023 PONV (postoperative nausea and vomiting) Objective [...] please contact clinic Craig Martínez PGY-5, Rheumatology [facility] 06-18-2023 Note Attestation signed by Keya Sorto MD at 06/19/2023 3:56 PM As the teaching physician, I have personally performed or re-performed the history of present illness, physical exam and medical decision making activities of the encounter and verified the medical student's documentation. I made pertinent changes as necessary to ensure accurate documentation. Orthopedic Surgery Subjective Post-op and Follow-up of the Left Wrist 06/18/23 Bailey Gruber is a 37 y.o. year old qlohl-lopw-fnrzfxkk female presenting 7 weeks post debridement left wrist extensor tendon [ECU]. She reports improved ECU pain following surgery, more significant when sharp contact is made over the area. She has a history of left wrist osteotomy 01/07/2022 with radial shortening, lunate core decompression. She is reporting increased wrist pain over the lunate, 03/08, controlled with tylenol and ibuprofen. She previously discussed proimal row carpectomy, but is not ready to proceed with surgery and has had minimal relief with CSI. 05/02/23 Bailey Gruber is a 37 y.o. year old sebyx-zwiu-ermdrynq female presenting 10 days status post debridement [...] debridement Past Medical History: Diagnosis Date Cancer ([facility]) 2016, breast left Irregular heart beat tachycardia [...] arise, please contact clinic Bryn Chaudhari, M3 [facility] 06/18/23 [facility] 05-02-2023 Note Orthopedic Surgery Subjective Post-op of the Left Wrist Bailey Gruber is a 37 y.o. year old cnbza-gdra-rpkplajs female presenting 10 days status post debridement [...] debridement Past Medical History: Diagnosis Date Cancer ([facility]) 2016, breast left Irregular heart beat tachycardia [...] 6 weeks to review her functional status. [facility] 04-22-2023 Note No concerns as per c all back guidelines [facility] 04-21-2023 Note Patient: Bailey Apolinar her Procedure Summary Date: 04/21/23 Room / Location: [address] OR Anesthesia Start: 957 Anesthesia Stop: 1038 Procedure: wrist Ecu tendon debridement (Left: Wrist) Diagnosis: Left wrist tendonitis Contusion of left wrist, initial encounter (Left wrist tendonitis [M77.8]) (Contusion of left wrist, initial encounter [S60.212A]) Surgeons: Keya Sorto MD Responsible Provider: Karla Roblero MD Anesthesia [...] per anesthesia protocol. No notable events documented. [facility] 04-21-2023 Note Discussed patient's antibiotic allergies with Dr. Misha Banks: Patient has reported allergies to the following medications: Base on cross reactivity of medications, cefazolin should NOT produce a cross-reactivity reaction. Side chains of cefazolin are significantly different from penicillin. Staff will monitor patient closely for any adverse reactions. Junior Perales, FrancoD [facility] 04-21-2023 Note Peripheral Block Patient location during procedure: pre-op Start time: 04/21/2023 9:30 AM End time: 04/21/2023 9:48 AM Reason for block: primary anesthetic Staffing Performed: resident/MEDICAL OFFICE REP/CAA Anesthesiologist: Karla Roblero MD Resident/MEDICAL OFFICE REP: Nilsa Shaw MD Preanesthetic Checklist Completed: patient [...] rate change: no Slow fractionated injection: yes [facility] 04-21-2023 Note Patient: Bailey Apolinar her Procedure Information Date/Time: 04/21/23 1020 Procedure: wrist Ecu tendon debridement (Left: Wrist) Location: [facility] OR [address] [place] [address] OR Surgeons: Keya Sorto MD Relevant Problems Anesthesia (+) PONV (postoperative [...] Plan discussed with attending. Additional Equipment Requests [facility] 04-10-2023 Note Attestation signed by Keya Sorto MD at 04/13/2023 8:53 AM As the [...] conservative treatment for pain until surgery. Nish Freddy 04/10/23 4:20 PM [facility] 11-19-2022 Note PROCEDURE: XR HIP LT 2 3V W PELVIS HISTORY: Pain of left hip joint , chronic COMPARISON: None. FINDINGS: BONES:No fracture, acute abnormality, or significant arthropathy. SOFT TISSUES:No visible soft tissue swelling. EFFUSION:None visible. OTHER: Negative. IMPRESSION: 1. Normal appearance of left hip. Electronically authenticated by: GIANNI MORELAND Date: 2022-11-19 11:14 [facility] 06-10-2022 Note PROCEDURE: XR ANKLE RT MIN 3 VIEWS HISTORY: Pain of right ankle joint ; posterior ankle pain after falling COMPARISON: None. FINDINGS: BONES:No fracture, acute abnormality, or significant arthropathy. SOFT TISSUES:Lateral soft tissue swelling. EFFUSION:None visible. OTHER: Negative. IMPRESSION: 1. Moderate swelling suggesting soft tissue injury. 2. No acute bone abnormality. Electronically authenticated by: GIANNI MORELAND Date: 2022-06-10 12:52 [facility] 01-28-2022 Note DISCHARGE SUMMARY DISCHARGE DATE: [...] pain free and no longer on narcotics. [facility] Signed and Approved by: DR BRIAN ARECHIGA . 02/14/2022 21:23:00 [facility] 01-28-2022 Note [facility] [place], [place] NAME: YASMANI December DATE OF : MEDICAL REC#: [id number] FRONT END DEVELOPER: [address] [facility], TRANSADMIT DATE: 01/28/2022 06:08:00 STUDENT SERVICES DIRECTOR DATE: 01/28/2022 23:00 DICTATING PHYSICIAN: BRIAN ARECHIGA DICTATION DATE: 01/28/2022 09:00 OPERATIVE NOTE OPERATION DATE: 01/28/2022 PREOPERATIVE DIAGNOSIS: Pelvic pain, left ovarian cyst. POSTOPERATIVE DIAGNOSIS: Pelvic pain, left ovarian cyst. PROCEDURE: Diagnostic laparoscopy which was then converted to an exploratory laparotomy. ANESTHESIA: General. SURGEON: Brian Arechiga D.O. SHIP CEILER: CUBA Hough URINE OUTPUT: Yellow and clear. [...] DR BRIAN ARECHIGA . 02/12/2022 09:11:00 [facility] Evaluation + Plan note No data available for this section [facility] [place] Evaluation note No assessment inform ation available [facility] Work Phone: Evaluation note Diagnosis Well woman exam with routine gynecological exam Routine gynecological examination Breast lump on right side at 9 o'clock position Lump or mass in breast documented in this encounter [facility] Diagnosis Mass of upper outer quadrant of right breast- Primary History of left breast cancer Personal history of malignant neoplasm of breast Breast pain, right H/O malignant phylloides tumor of breast [facility] No data available for this section [facility] InstructionsNot on filedocumented in this encounter [facility] No data available for this section [facility] Summary Purpose Family History No Family History Records FoundNo Family History Records FoundNo Family History Records FoundNo Family History Records FoundNo Family History Records FoundNo Family History Records Found No data available for this section No Family History Records FoundNo Family History Records FoundNo Family History Records FoundNo Family History Records Found Advance Directives No Advanced Directives Records Found Advance Directive Response Recorded Date/ Time Advance Directives No July 22, 2023 2:40pm Date Activated Date Inactivated Comments 09/02/2019 2:33 PM 09/03/2019 11:17 AM Chief Complaint and Reason for Visit Chief Complaint z85.3 n63.0 n63.13 c 50.912 Additional Source Comments INFORMATION SOURCE (unrecogn ized section and content) DATE CREATED AUTHOR 02/20/2019 [facility] DATE CREATED AUTHOR AUTHOR'S ORGANIZ ATION 06/08/2022 [facility] DATE CREATED AUTHOR AUTHOR'S ORGANIZ ATION 01/25/2023 [facility] DATE CREATED AUTHOR AUTHOR'S ORGANIZ ATION 09/12/2023 [facility] DATE CREATED AUTHOR AUTHOR'S ORGANIZ ATION 01/07/2024 [facility] DATE CREATED AUTHOR AUTHOR'S ORGANIZ ATION 07/27/2024 [facility] DATE CREATED AUTHOR AUTHOR'S ORGANIZ ATION 10/21/2024 Chino Eris [facility] DATE CREATED AUTHOR AUTHOR'S ORGANIZ ATION 11/05/2024 [facility] DATE CREATED AUTHOR AUTHOR'S ORGANIZ ATION 11/05/2024 [facility] DATE CREATED AUTHOR AUTHOR'S ORGANIZ ATION 11/07/2024 [facility] Care Teams (unrecognized sec tion and content) Team Status: Active Member Role Status Dates Durga Muller MD Primary Care Provider Active Team Status: Inactive Member Role Status Dates Durga Muller MD Primary Care Provider Active Brian Arechiga Attending Provider Active Carpenters Supervisor Relationship Specialty Start Date End Date Durga Muller MD [address] [place] [address] PCP - General Family Medicine 07/22/23 Carpenters Supervisor Relationship Specialty Start Date End Date Durga Muller MD [address] [place] [address] PCP - General Family Medicine 07/22/23 Carpenters Supervisor Relationship Specialty Start Date End Date Durga Muller MD [address] [place] [address] PCP - General Family Medicine 07/22/23 Carpenters Supervisor Relationship Specialty Start Date End Date Durga Muller MD PCP - General 01/09/17 Goals (unrecognized section and content) Goals may be documented in a n alternate section No data available for this sectionNot on filedocumented as of this encounter Reason for Visit (unrecogniz ed section and content) Reason Comments Well Women Visit Reason Comments Consult Right breast mass Specialty Diagnoses / Procedures Referred By Caemron miller Referred To Contact Breast Surgery Diagnoses Personal history of malignant neoplasm of breast Mass of upper outer quadrant of right breast Sherrill Thacker PA [address] [place] [address] Phone: tel: fax: [facility] [address] [facility] [address] [place] [address] Phone: tel: fax: Referral ID Status Reason Start Date Expiration Date V isits Requested Visits Authorized [id number] Pending Review 07/29/2024 07/29/2025 1 1 FOR RECORDS PERTAINING TO PATIENTS WHO ARE [...] BE BASED ON THE PRIMARY CLINICAL RECORDS. [employer] provides no warranty or guarantee of the accuracy or completeness of information in this document.
== END 2024-12-10 13:48 | disposition home or self-care (01) ==
LOC: MRI 13:47
PROVIDERS: PCP Family Medicine; Visit Provider Family Medicine
DX: M54.50 Low back pain, unspecified (principal); M51.369 Other intervertebral disc degeneration, lumbar region without mention of lumbar back pain or lower extremity pain
CPT/HCPCS: 72148

== ENCOUNTER 2024-12-29 12:42 | Outpatient (OUT) | payer MEDICAID, SELFPAY ==
--- NOTE | 2024-12-29 13:11 | PM.CN ---
Consult Note: HPI Data of Consult Patient: new to practice Requesting Physician: Beverley Thompson NP Primary Care Provider: Andres Watters MD Consult Narrative Reason for consult: establish Narrative: Bailey Gruber a pleasant 39 year old female presents for evaluation of chronic low back pain with progressive radiculopathy. Longstanding hx of low back pain unresponsive to heat, ice, tylenol, nsaids. no recent PT. lumbar MRI available with results below. currently utilizing ibuprofen 800mg BID PRN and tizanidine without improvement, denies side effects. Pain today 4/10 increasing to 8/10 throbbing aching with numbness of left leg/foot. 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) Diabetes ?E11.9 - Type 2 diabetes mellitus without complications (ICD-10) Hidradenitis suppurativa ?L73.2 - Hidradenitis suppurativa (ICD-10) Migraines ?G43.909 - Migraine, unspecified, not intractable, without status migrainosus (ICD-10) Malignant phyllodes tumor of left breast ?C50.912 - Malignant neoplasm of unspecified site of left female breast (ICD-10) 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) COVID ?U07.1 - COVID-19 (ICD-10) Chronic left hip pain ?M25.552 - Pain in left hip (ICD-10) ?G89.29 - Other chronic pain (ICD-10) Surgical History Hx of excision of mass ?Z98.890 - Other specified postprocedural states (ICD-10) History of surgery on lower extremity ?Z98.890 - Other specified postprocedural states (ICD-10) History of dilation and curettage ?Z98.890 - Other specified postprocedural states (ICD-10) History of tonsillectomy and adenoidectomy ?Z90.89 - Acquired absence of other organs (ICD-10) S/P breast reconstruction ?Z98.890 - Other specified postprocedural states (ICD-10) Status post partial mastectomy of left breast ?Z90.12 - Acquired absence of left breast and nipple (ICD-10) History of total hysterectomy ?Z90.710 - Acquired absence of both cervix and uterus (ICD-10) Previous section ?Z98.891 - History of uterine scar from previous surgery (ICD-10) H/O left wrist surgery ?Z98.890 - Other specified postprocedural states (ICD-10) H/O wrist surgery ?Z98.890 - Other specified postprocedural states (ICD-10) History of carpal tunnel release ?Z98.890 - Other specified postprocedural states (ICD-10) Social History Smoking status: Current every day smoker Meds Home Medications and Allergies Home Medications ?Medication ?Instructions ?Recorded ?Confirmed ?Type metformin 1,000 mg tablet 1,000 mg PO DAILY 07/14/23 11/16/23 History sitagliptin phosphate 100 mg 100 mg PO DAILY 07/14/23 11/16/23 History tablet (Januvia) adapex PO DAILY 11/16/23 History Allergies Allergy/AdvReac Type Severity Reaction Status Date / Time codeine Allergy chest pain Verified 11/16/23 00:33 Sulfa (Sulfonamide Allergy Blister Verified 11/16/23 00:33 Antibiotics) amoxicillin' Allergy blisters Uncoded 11/16/23 00:33 bactrim Allergy blisters Uncoded 11/16/23 00:33 cleocin Allergy Blister Uncoded 11/16/23 00:33 demerol Allergy Hives Uncoded 11/16/23 00:33 doxycycline Allergy Blister Uncoded 11/16/23 00:33 vicodin Allergy hives Uncoded 11/16/23 00:33 Exam Constitutional Documenting provider has reviewed patient's vital signs: yes Common normals: no apparent distress, oriented x3, healthy appearing, alert and well nourished General appearance: cooperative HENMT Common normals: normocephalic, hearing grossly normal bilaterally and moist oral mucous membranes Head and scalp: normocephalic Eye Common normals: PERRL Pupil: PERRL Neck & C-Spine Common normals: full ROM General: normal visual inspection Chest Common normals: inspection of chest normal Respiratory Common normals: normal respiratory effort, no retractions and no use of accessory muscles Back & Pelvis Lumbar spine/lower back: pain with ROM, lumbar spinal tenderness and straight leg raise positive left Other: positive facet loading L4-S1 altered sensation left L4,5,S1 strength 5/5 in BLE Neuro Common normals: oriented x3, CN's II-XII intact bilaterally, moves all extremities, no focal motor deficits, no sensory deficits noted and deep tendon reflexes 2+ bilaterally Sensorium/orientation: alert Motor exam: strength 5/5 throughout and no movement abnormalities noted Psych Common normals: mental status grossly normal, thought process normal, cooperative, affect normal, speech normal and activity/motor behavior normal Speech: normal speech Thought process: normal thought process Results Additional Findings Additional findings: If on a controlled substance or opioids, I have checked an [place] report on this patient and there are no aberrancies noted in the prescribing history.??If on a controlled substance or opioid a drug screen was completed and reviewed within the last year, and if there has not been a drug screen completed we ordered one today to monitor higher risk, state monitored pain medication use. As part of providing excellent, safe, comprehensive care, the following was completed at our patient's visit: 1. A medication reconciliation and review to ensure accurate knowledge of current/active medications, including asking our patients to inform us about any sbbw-lwm-vlwhvzh medications or herbal remedies/nutritional supplements/alternative remedies. 2. A review to specifically ensure our patients have had annual screening for screening for depression, screening for tobacco use, and screening for unhealthy alcohol use. For concerning screenings had a discussion with the patient, provided patient education, and recommended follow-up with primary care provider when appropriate. If patient noted with a risk of falling, they received education on strength, gait, and balance training to prevent future risk of falling. Portions of this note may have been carried over from the previous visit and updated as appropriate. Please note this office utilizes paper charting in addition to the electronic medical record. A list of current medications, vitals, and PMH is available there as the clinical staff outside of [facility] do not have access to [employer] charting during the clinic day operations. As part of providing quality comprehensive care the current medications, vitals, and PMH were reviewed in the paper chart. Assessment and Plan Assessment and Plan (1) Lumbar spondylosis: (2) Myalgia, other site: (3) Bulging lumbar disc: Plan PT for chronic low back pain DC OTC nsaids, start meloxicam 7.5mg BID PRN pain take with food dc tizanidine, start baclofen 5-10mg BID PRN pain/spasms f/u 1 month to assess pain/response to medications. consider left L4,5,S1 TFESI if radicular symptoms do not improve
== END 2024-12-29 12:43 | disposition home or self-care (01) ==
LOC: PM 12:42
PROVIDERS: PCP Family Medicine; Visit Provider Nurse Practitioner
DX: M47.816 Spondylosis without myelopathy or radiculopathy, lumbar region (principal); M79.18 Myalgia, other site; M51.369 Other intervertebral disc degeneration, lumbar region without mention of lumbar back pain or lower extremity pain
CPT/HCPCS: G0463